=== PATIENT | female | born 1970 | race Caucasian/White ===

== ENCOUNTER 2016-03-12 15:31 | Emergency (ER) | payer OTHER ==
[~2016-03-12] VITALS: Ht 156.2 cm; Wt 65.9 kg
[~2016-03-12 15:31] MED LIST: ASCO-63 PO; CYCL5TAB PO; MECL1TAB42 PO; NAPR1TAB9 PO; TOPI25TA99 PO
[2016-03-12 15:33] VITALS: Ht 156.2 cm; Wt 65.9 kg
[2016-03-12] MEDS ORDERED: SODIUM CHLORIDE 0.9% 1000ML 1,000 ML IV STA (16:32)
[2016-03-12] MEDS ORDERED: ONDANSETRON INJ 2 MG/ML 2 ML VIAL IV STA (16:32)
--- NOTE | 2016-03-12 16:42 | EMERGENCY ROOM VISIT NOTE ---
History First contact with patient: 16:23 Chief Complaint: FLU LIKE SX Stated Complaint: STOMACH PAIN, DIARRHEA, VOMITING, BACK PAIN History of Present Illness The patient is a 46 year old female who presents to the Emergency Department by private vehicle for evaluation of her epigastric abdominal discomfort, nausea, vomiting, and diarrhea. She reports that she ate sauerkraut yesterday and shortly after developed heartburn-like symptoms. She took Tums which she reports typically helps with her symptoms. She was awoken at approximate 7 AM with persistent pain in the epigastrium. She's had nausea as well as vomiting. There is been no blood in her vomit. She's had diarrhea as well. No blood in her stool as well. 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 She does not take prophylactic medications. She's had no fevers. She has had some mild lightheadedness. She reports no history of solar symptoms otherwise. She denies a previous abdominal surgeries other than a splenectomy. She rates her current discomfort as 8/10. She denies any headaches, chest pain, palpitations, hemoptysis, hematemesis, hematochezia, melena, hematuria, or dysuria. She denies any recent sick contacts. She reports no recent long distance travel, consumption of raw/undercooked foods, drinking from poor water sources, or recent antibiotic use. Review of Systems A complete 10-point Review of Systems was discussed with the patient, with pertinent positives and negatives listed in the History of Present Illness. All remaining Review of Systems questions can be considered negative unless otherwise specified. Past Medical/Surgical History Medical Problems: (1) Asthma (2) Bipolar disorder (3) Bronchitis (4) Hyperlipidemia (5) Migraines (6) Pneumonia (7) Splenectomy Family History Cancer Diabetes mellitus FHx: gallbladder disease Heart disease Hypertension Lung disease Seizures Stroke Social History Smoking Status: Current Every Day Smoker Smokeless Tobacco Use: No Alcohol Use: none Drug Use: none Marital Status: Housing Status: lives with significant other Occupation Status: unemployed Current/Historical Medications Scheduled Bupropion Hcl (Wellbutrin Sr), 150 MG PO BID Cephalexin Monohydrate (Keflex), 500 MG PO TID Pantoprazole (Protonix), 40 MG PO DAILY Topiramate (Topamax), 50 MG PO BID Scheduled PRN Epinephrine (Epipen 2-Jalen), 0.3 MG IM UD PRN for ALLERGIC REACTION Hydrocodone/Acetaminophen 5MG/325MG (Reno 5MG/325MG), 1-2 TABLET PO Q4H PRN for Pain Meclizine HCl (Meclizine HCl), 25 MG PO TID PRN for Dizziness or Vertigo Allergies Coded Allergies: Clindamycin (Verified Allergy, Mild, 09/03/15) Penicillins (Verified Allergy, Mild, 09/03/15) BEE STING (Verified Allergy, Unknown, hives/swelling, 09/03/15) Aspirin (Verified Adverse Reaction, Unknown, 09/03/15) Physical Exam Vital Signs Date Time Temp Pulse Resp B/P Pulse Ox O2 Delivery O2 Flow Rate FiO2 03/12/16 23:22 66 18 120/64 96 03/12/16 21:37 36.7 83 18 142/58 96 Room Air 03/12/16 20:40 36.7 85 18 91/73 97 Room Air 03/12/16 20:05 75 16 123/70 96 Room Air 03/12/16 18:21 36.7 77 133/63 96 Room Air 03/12/16 16:54 73 03/12/16 16:51 Room Air 03/12/16 15:33 36.8 87 17 129/54 97 Room Air Pain Rating (0-10): 8 Physical Exam VITAL SIGNS - Vital signs and nursing notes were reviewed. GENERAL - 46-year-old female appearing her stated age who is in no acute distress. Communicates well with provider and answers questions appropriately. LUNGS - Chest wall symmetric without accessory muscle use, intercostals retractions, or central cyanosis. Normal vesicular breath sounds CTA B/L. No wheezes, rales, or rhonchi appreciated. CARDIAC - RRR with S1/S2. No murmur, rubs, or gallops appreciated. ABDOMEN - Abdominal contour obese and without pulsations or visible masses. BS normoactive all four quadrants. Mild tenderness to palpation appreciated in the epigastrium. No guarding. No Rebound Tenderness. Negative Rovsing's. Negative Mitchell's. No palpable masses, hepatosplenomegaly, or ascites noted. EXTREMITIES - No clubbing or peripheral cyanosis. No pretibial edema present. PSYCH - A&Ox3 and cooperates fully with examiner. Pt is very pleasant and interacts well with examiner. Medical Decision & Procedures ER Provider Diagnostic Interpretation: Radiological imaging and reports were reviewed by myself. Radiologist's Interpretation as follows: ABDOMEN AND PELVIS CT WITH IV CONTRAST CT DOSE: 322.03 mGy.cm HISTORY: epigastric pain - 19k white count - h/o splenectomy TECHNIQUE: Multiaxial CT images of the abdomen and pelvis were performed following the use of intravenous contrast. COMPARISON STUDY: Abdominal ultrasound 03/12/2016. FINDINGS: The lung bases are clear. No pneumoperitoneum. No pneumatosis. No suspicious lytic or blastic osseous lesions. The liver, gallbladder, adrenal glands, and pancreas are unremarkable. The left kidney enhances normally. There is a 4 mm hypodense lesion within the upper pole the right kidney. This is too small to characterize. No hydronephrosis. No retroperitoneal lymphadenopathy. There is high-grade stenosis at the origin of the right common iliac artery and mild stenosis at the origin of the left common iliac artery. The bilateral iliac arteries appear hypoplastic. The bladder is unremarkable. Multiple enhancing lesions within the uterus with the largest on the right measuring 2 cm. These likely represent fibroids. Normal left ovary. There are 2 cysts within the right ovary with the largest measuring 2.1 cm. No pelvic free fluid. Normal bladder. No bowel wall thickening or obstruction. Normal appendix. Small soft tissue nodules inferior to pylorus may represent small lymph nodes. These measure up to 8 mm in size. Prior splenectomy. There are few small areas of splenic tissue scattered throughout the left upper quadrant consistent with splenosis. IMPRESSION: 1. No bowel wall thickening or obstruction. 2. Normal appendix. 3. Prior splenectomy. There are few small areas of splenic tissue scattered throughout the left upper quadrant consistent with splenosis. 4. Small soft tissue nodules inferior to pylorus may represent small lymph nodes. These measure up to 8 mm in size. These are of uncertain clinical significance. 5. 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 The bilateral iliac arteries appear hypoplastic. ABDOMINAL ULTRASOUND, RIGHT UPPER QUADRANT HISTORY: Epigastric abdominal pain.. COMPARISON: None. FINDINGS: Pancreas: The pancreatic tail is obscured by overlying bowel gas. The remaining portions of the pancreas are within normal limits. Liver: Unremarkable. Gallbladder: No gallbladder wall thickening. No gallstones. CBD: 4 mm. Right kidney: No hydronephrosis. 5 mm hyperechoic focus within the upper pole of the right kidney. IMPRESSION: 1. Normal gallbladder. No gallstones. 2. A 5 mm hyperechoic lesion within the upper pole of the right kidney. This could represent a focal area of scarring versus a small angiomyolipoma. CHEST AND ABDOMEN 2 VIEWS HISTORY: Nausea. Vomiting. Diarrhea. COMPARISON: Chest 04/26/2014. FINDINGS: The lungs are clear. The cardiomediastinal silhouette is within normal limits. There is no pneumoperitoneum or pneumatosis. The bowel gas pattern is unremarkable. No evidence for bowel obstruction. No pathologic calcifications. There is contrast within the bowel. IMPRESSION: No acute cardiopulmonary process. No evidence for bowel obstruction. Laboratory Results 03/12/16 17:40 Red Blood Count 4.98, Mean Corpuscular Volume 86.3, Mean Corpuscular Hemoglobin 29.3, Mean Corpuscular Hemoglobin Concent 34.0, Mean Platelet Volume 11.6, Neutrophils (%) (Auto) 68.4, Lymphocytes (%) (Auto) 23.7, Monocytes (%) (Auto) 6.1, Eosinophils (%) (Auto) 1.0, Basophils (%) (Auto) 0.5, Neutrophils # (Auto) 13.07, Lymphocytes # (Auto) 4.54, Monocytes # (Auto) 1.17, Eosinophils # (Auto) 0.20, Basophils # (Auto) 0.10 03/12/16 17:40 Test 03/12/16 16:52 03/12/16 17:40 Urine Color YELLOW Urine Appearance CLEAR (CLEAR) Urine pH >= 9.0 (4.5-7.5) Urine Specific Woodson 1.018 (1.000-1.030) Urine Protein NEG (NEG) Urine Glucose (UA) NEG (NEG) Urine Ketones NEG (NEG) Urine Occult Blood NEG (NEG) Urine Nitrite NEG (NEG) Urine Bilirubin NEG (NEG) Urine Urobilinogen NEG (NEG) Urine Leukocyte Esterase NEG (NEG) Urine Test NEG (NEG) White Blood Count 19.13 K/uL (4.8-10.8) Red Blood Count 4.98 M/uL (4.2-5.4) Hemoglobin 14.6 g/dL (12.0-16.0) Hematocrit 43.0 % (37-47) Mean Corpuscular Volume 86.3 fL (80-100) Mean Corpuscular Hemoglobin 29.3 pg (25-34) Mean Corpuscular Hemoglobin Concent 34.0 g/dl (32-36) Platelet Count 530 K/uL (130-400) Mean Platelet Volume 11.6 fL (7.4-10.4) Neutrophils (%) (Auto) 68.4 % Lymphocytes (%) (Auto) 23.7 % Monocytes (%) (Auto) 6.1 % Eosinophils (%) (Auto) 1.0 % Basophils (%) (Auto) 0.5 % Neutrophils # (Auto) 13.07 K/uL (1.4-6.5) Lymphocytes # (Auto) 4.54 K/uL (1.2-3.4) Monocytes # (Auto) 1.17 K/uL (0.11-0.59) Eosinophils # (Auto) 0.20 K/uL (0-0.5) Basophils # (Auto) 0.10 K/uL (0-0.2) RDW Standard Deviation 43.4 fL (36.4-46.3) RDW Coefficient of Variation 13.9 % (11.5-14.5) Immature Granulocyte % (Auto) 0.3 % Immature Granulocyte # (Auto) 0.05 K/uL (0.00-0.02) Erythrocyte Sedimentation Rate 15 mm/hr (0-21) Prothrombin Time 10.1 SECONDS (9.0-12.0) Prothromb Time International Ratio 0.9 (0.9-1.1) Activated Partial Thromboplast Time 26.4 SECONDS (21.0-31.0) Partial Thromboplastin Ratio 1.0 Anion Gap 10.0 mmol/L (3-11) Est Creatinine Clear Calc Drug Dose 98.2 ml/min Estimated GFR () 124.7 Estimated GFR (Non- 107.6 BUN/Creatinine Ratio 14.3 (10-20) Calcium Level 9.1 mg/dl (8.5-10.1) Magnesium Level 2.0 mg/dl (1.8-2.4) Total Bilirubin 0.2 mg/dl (0.2-1) Aspartate Amino Transf (AST/SGOT) 16 U/L (15-37) Alanine Aminotransferase (ALT/SGPT) 15 U/L (12-78) Alkaline Phosphatase 96 U/L (45-117) Total Creatine Kinase 66 U/L (26-192) Creatine Kinase MB < 0.5 ng/ml (0.5-3.6) Creatine Kinase MB Ratio (0-3.0) Troponin I < 0.015 ng/ml (0-0.045) C-Reactive Protein 0.65 mg/dl (0-0.29) Total Protein 7.6 gm/dl (6.4-8.2) Albumin 4.0 gm/dl (3.4-5.0) Globulin 3.6 gm/dl (2.5-4.0) Albumin/Globulin Ratio 1.1 (0.9-2) Lipase 191 U/L (73-393) Thyroid Stimulating Hormone (TSH) 0.871 uIu/ml (0.300-4.500) Medications Administered Medications (Trade) Dose Ordered Sig/Karlo Route Start Time Stop Time Status Last Admin Dose Admin Sodium Chloride (Nss 1000ml) 1,000 ml @ 200 mls/hr Q5H STAT IV 03/12/16 16:32 03/12/16 21:31 DC 03/12/16 17:45 200 MLS/HR Miscellaneous Medication (Gi Cocktail) 30 ml NOW ONCE PO 03/12/16 16:45 03/12/16 16:46 DC 03/12/16 17:09 30 ML Ondansetron HCl 4 mg 4 mg NOW STAT IV 03/12/16 16:32 03/12/16 16:35 DC 03/12/16 17:45 4 MG Pantoprazole Sodium/Syringe (Protonix Inj/ Syringe) 10 ml @ 5 mls/min NOW ONCE IV 03/12/16 16:45 03/12/16 16:46 DC 03/12/16 18:19 5 MLS/MIN Lidocaine HCl (Viscous Lidocaine 2% Soln) 20 ml STK-MED ONCE .ROUTE 03/12/16 17:06 03/12/16 17:07 DC 03/12/16 17:09 20 ML Al Hydroxide/Mg Hydroxide (Maalox Susp) 30 ml STK-MED ONCE .ROUTE 03/12/16 17:06 03/12/16 17:07 DC 03/12/16 17:09 30 ML Morphine Sulfate (MoRPHine SULFATE INJ) 4 mg NOW STAT IV 03/12/16 20:17 03/12/16 20:19 DC 03/12/16 20:39 4 MG Cephalexin Monohydrate (Keflex Cap) 500 mg NOW ONCE PO 03/12/16 23:00 03/12/16 23:01 DC 03/12/16 23:16 500 MG Cephalexin Monohydrate (Keflex 500MG Home Pack) 1 homepack NOW ONCE PO 03/12/16 23:00 03/12/16 23:01 DC 03/12/16 23:17 1 HOMEPACK Acetaminophen/ Hydrocodone Bitart (Reno 5/325mg Home Pack) 1 homepack UD ONCE PO 03/12/16 23:00 03/12/16 23:01 DC 03/12/16 23:18 1 HOMEPACK Procedure Patient was placed on the monitor car operator and monitored throughout the entire extent of their stay. In addition, the patient's pulse oximetry was monitored throughout the entire stay. Any abnormalities or aberrancies were addressed appropriately. ECG Indication: abdominal pain Rate (beats per minute): 78 Rhythm: normal sinus Findings: no acute ischemic change Change: no significant change (from 12/20/2014.) ED Course Patient was seen and evaluated by myself. Labs were drawn, saline lock in place. The patient was hydrated with 1000 mL of normal saline and a rate of 200 mL per hour. She received a GI cocktail as well as 4 mg Zofran intravenously and Protonix intravenously. Obstruction series and ultrasound of the upper abdomen were obtained. Laboratory results demonstrate marked leukocytosis of greater than 19,000. The patient is not anemic. There are no significant electrolyte abnormalities. ESR and CRP are not significantly elevated. Cardiac enzymes and troponin are negative. Urinalysis does not suggest infection. X-ray and ultrasound results above. The patient has persistent pain. Because of this, a CT was performed. The patient was treated with 4 mg morphine intravenously for pain. Case was reviewed with my attending physician who agrees with diagnostic approach and treatment plan. Laboratory results and imaging studies were reviewed with the patient who acknowledges understanding. The patient feels somewhat better at this time. I did discuss antibiotic prophylaxis with the patient's significant elevation of her white blood cell count. I did offer Keflex. The patient reports that is typically what she is placed on when they are afraid of infection. She was educated on following with her primary care provider tomorrow for repeat abdominal exam. She was educated on worrisome symptoms for return sooner for further evaluation. She was educated on worrisome symptoms for return visit to the emergency department. Patient discharged home afebrile and in good condition. Medical Decision Given the patient's presentation and stated complaints, I did elect to perform the above-mentioned workup. The patient presents today with complaints of epigastric abdominal discomfort. She is also had nausea, vomiting, diarrhea. She's had no fevers. She has no fever or presentation. She was found to have a marked leukocytosis. On review the patient's record, she does tend to have an elevation of her white blood cell count. I did address this with the patient and she reports that this is a common theme. Regardless, I did feel that given the patient's discomfort and unremarkable evaluation with x-ray and ultrasound, the patient warrants CT of the abdomen and pelvis for possible infectious source. This is certainly important in the setting of an asplenic patient. CT was essentially unremarkable except for some small lymph node enlargement which is in the location of the patient's discomfort. Patient's early could be experiencing gastritis. I did feel that it was appropriate for the patient to be prophylaxed with antibiotics. After discussed with my attending physician, he did feel that this was appropriate as well. The patient was provided Keflex. This is what she typically receives as well. Otherwise, there are no known sources at this point for infectious cause. She remained afebrile. She felt much better after pain medication. She was provided Protonix, Reno, and Keflex for home. It was agreed upon that the patient will follow-up tomorrow with her primary care provider for repeat abdominal exam. She will return to the emergency department sooner if her symptoms were to change or worsen overnight. The patient was educated on worrisome symptoms for return visit to the emergency department. Patient discharged home afebrile and in good condition. In the evaluation and treatment of this patient, the following differential diagnoses were considered: Appendicitis, Diverticulitis, Diverticulosis, Colitis , Ischemic Colitis, Inflammatory Bowel Disease, Irritable Bowel Disease, Ovarian Torsion, Kidney Stone, Pyelonephritis, Hydronephrosis, Cholecystitis, Ascending Cholangitis, Choledocholithiasis, GERD. Impression Primary Impression: Epigastric abdominal pain Additional Impression: Nausea vomiting and diarrhea Departure Information Dispostion Home / Self-Care Condition GOOD Prescriptions Cephalexin Monohydrate (Keflex) 500 Mg Cap 500 MG PO TID for 7 Days, #21 CAP Prov: Ayo Méndez PA-C 03/12/16 Hydrocodone/Acetaminophen 5MG/325MG (Reno 5MG/325MG) Tab 1-2 TABLET PO Q4H Y for Pain, #14 TAB For Initial Treatment Prov: Ayo Méndez PA-C 03/12/16 Pantoprazole (Protonix) 40 Mg Tab 40 MG PO DAILY for 14 Days, #14 TAB Prov: Ayo Méndez PA-C 03/12/16 Referrals Juan Branham III, M.D. (PCP) Patient Instructions A Signature Page, My [facility] Additional Instructions You have been treated in the Emergency Department your Epigastric Abdominal Pain , Nausea, Vomiting, Diarrhea. You have been prescribed Reno to be used for pain control. This is a narcotic medication. You cannot drive or consume alcohol while on this medicine. This medicine should only be used for pain that cannot be controlled with over-the- counter pain medicines. Please use the Protonix as prescribed. You were prescribed Keflex to be taken as prescribed. This is an antibiotic. All antibiotics have the potential to cause diarrhea. Stop this medication and contact a medical provider if you were to develop any significant adverse side effects including: wheezing, shortness of breath, passing out, vomiting, or a diffuse rash. Always take antibiotics as directed and COMPLETE the ENTIRE course regardless of the improvement of your symptoms. For pain control, you can use the following [id number] medicines (if >12 yo): - Regular strength (325mg/tab) Tylenol (acetaminophen) 2 tabs every 4-6 hours as needed. Do not exceed 12 tablets in a 24 hour period. Avoid taking more than 4 grams (4000 mg) of Tylenol per day. This includes any other sources of acetaminophen you may take on a regular basis. - Regular strength (200 mg/tab) Advil (ibuprofen) 1-2 tabs every 4-6 hours as needed. Do not exceed a dose of 3200 mg per day. Drink plenty of water and stay well hydrated. As with any trip to the Emergency Department, you should follow-up with your Primary Care Provider from today's visit. Return to the emergency department if your symptoms persist despite treatment plan outlined above or if the following symptoms occur: increased fevers, chills , worsening nausea/vomiting, blood in your stool or urine.
[2016-03-12] MEDS ORDERED: PANTOprazole INJ 40 MG in SYRINGE 0 ML IV ONE (16:45)
[2016-03-12] MEDS ORDERED: GI COCKTAIL PO ONE (16:45)
[2016-03-12] MEDS ORDERED: ANT25 PO (16:55)
[2016-03-12] MEDS ORDERED: LIDOCAINE HCL 2% VISC SOLN 20 ML UDC ONE (17:06)
[2016-03-12] MEDS ORDERED: ALUMINUM/MAGNESIUM SUSP 30 ML UDC ONE (17:06)
[2016-03-12 17:09] LABS: URINE APPEARANCE CLEAR (CLEAR); URINE BILIRUBIN NEG (NEG); URINE COLOR YELLOW; URINE NITRITE NEG (NEG); URINE PH >= 9.0 (4.5-7.5); URINE SPECIFIC GRAVITY 1.018 (1.000-1.030); UROBILINOGEN NEG (NEG); ZZUR CULT IF INDIC CLEAN CATCH NO
[2016-03-12 17:12] LABS: MANUAL MICROSCOPIC REQUIRED? NO; REVIEW REQ? NO
[2016-03-12 18:09] LABS: BASO % 0.5 %; COMPLETE YES; IG% 0.3 %; LYMPH % 23.7 %; LYMPH ABS # 4.54 K/uL (1.2-3.4); MEAN CELL VOLUME 86.3 fL (80-100); MEAN CORPUSCULAR HEMOGLOBIN 29.3 pg (25-34); MEAN PLATELET VOLUME 11.6 fL (7.4-10.4); MONO % 6.1 %; NEUT % 68.4 %; PLATELET COUNT 530 K/uL (130-400); RED BLOOD COUNT 4.98 M/uL (4.2-5.4); WHITE BLOOD COUNT 19.13 K/uL (4.8-10.8)
[2016-03-12 18:17] LABS: INR 0.9 (0.9-1.1); PROTHROMBIN TIME (PATIENT) 10.1 SECONDS (9.0-12.0)
[2016-03-12] MEDS ORDERED: OPTIRAY 320 IV PRN (18:30)
--- NOTE | 2016-03-12 18:30 | DIAGNOSTIC IMAGING REPORT ---
CHEST AND ABDOMEN 2 VIEWS HISTORY: Nausea. Vomiting. Diarrhea. COMPARISON: Chest 04/26/2014. FINDINGS: The lungs are clear. The cardiomediastinal silhouette is within normal limits. There is no pneumoperitoneum or pneumatosis. The bowel gas pattern is unremarkable. No evidence for bowel obstruction. No pathologic calcifications. There is contrast within the bowel. IMPRESSION: No acute cardiopulmonary process. No evidence for bowel obstruction. Electronically signed by: Bridger Carballo M.D. 03/12/2016 6:28 PM
[2016-03-12 18:31] LABS: ALT/SGPT 15 U/L (12-78); BLOOD UREA NITROGEN 9 mg/dl (7-18); BUN/CREATININE RATIO 14.3 (10-20); C-REACTIVE PROTEIN 0.65 mg/dl (0-0.29); CALCIUM 9.1 mg/dl (8.5-10.1); CARBON DIOXIDE 23 mmol/L (21-32); CHLORIDE 104 mmol/L (98-107); CREATININE 0.63 mg/dl (0.60-1.20); GLUCOSE 94 mg/dl (70-99); POTASSIUM 4.1 mmol/L (3.5-5.1); SODIUM 137 mmol/L (136-145)
[2016-03-12 18:40] LABS: ALB/GLOB RATIO 1.1 (0.9-2); ALKALINE PHOSPHATASE 96 U/L (45-117); AST/SGOT 16 U/L (15-37); THYROID STIMULATING HORMONE 0.871 uIu/ml (0.300-4.500)
--- NOTE | 2016-03-12 19:55 | DIAGNOSTIC IMAGING REPORT ---
ABDOMINAL ULTRASOUND, RIGHT UPPER QUADRANT HISTORY: Epigastric abdominal pain.. COMPARISON: None. FINDINGS: Pancreas: The pancreatic tail is obscured by overlying bowel gas. The remaining portions of the pancreas are within normal limits. Liver: Unremarkable. Gallbladder: No gallbladder wall thickening. No gallstones. CBD: 4 mm. Right kidney: No hydronephrosis. 5 mm hyperechoic focus within the upper pole of the right kidney. IMPRESSION: 1. Normal gallbladder. No gallstones. 2. A 5 mm hyperechoic lesion within the upper pole of the right kidney. This could represent a focal area of scarring versus a small angiomyolipoma. Electronically signed by: Bridger Carballo M.D. 03/12/2016 7:53 PM
[2016-03-12] MEDS ORDERED: MoRPHine SULFATE 4 MG/ML 1 ML CARP\\VIAL IV STA (20:17)
--- NOTE | 2016-03-12 21:33 | DIAGNOSTIC IMAGING REPORT ---
ABDOMEN AND PELVIS CT WITH IV CONTRAST CT DOSE: 322.03 mGy.cm HISTORY: epigastric pain - 19k white count - h/o splenectomy TECHNIQUE: Multiaxial CT images of the abdomen and pelvis were performed following the use of intravenous contrast. COMPARISON STUDY: Abdominal ultrasound 03/12/2016. FINDINGS: The lung bases are clear. No pneumoperitoneum. No pneumatosis. No suspicious lytic or blastic osseous lesions. The liver, gallbladder, adrenal glands, and pancreas are unremarkable. The left kidney enhances normally. There is a 4 mm hypodense lesion within the upper pole the right kidney. This is too small to characterize. No hydronephrosis. No retroperitoneal lymphadenopathy. There is high-grade stenosis at the origin of the right common iliac artery and mild stenosis at the origin of the left common iliac artery. The bilateral iliac arteries appear hypoplastic. The bladder is unremarkable. Multiple enhancing lesions within the uterus with the largest on the right measuring 2 cm. These likely represent fibroids. Normal left ovary. There are 2 cysts within the right ovary with the largest measuring 2.1 cm. No pelvic free fluid. Normal bladder. No bowel wall thickening or obstruction. Normal appendix. Small soft tissue nodules inferior to pylorus may represent small lymph nodes. These measure up to 8 mm in size. Prior splenectomy. There are few small areas of splenic tissue scattered throughout the left upper quadrant consistent with splenosis. IMPRESSION: 1. No bowel wall thickening or obstruction. 2. Normal appendix. 3. Prior splenectomy. There are few small areas of splenic tissue scattered throughout the left upper quadrant consistent with splenosis. 4. Small soft tissue nodules inferior to pylorus may represent small lymph nodes. These measure up to 8 mm in size. These are of uncertain clinical significance. 5. 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 The bilateral iliac arteries appear hypoplastic. Electronically signed by: Bridger Carballo M.D. 03/12/2016 9:31 PM
[2016-03-12 21:37] VITALS: TEMP 36.7
[2016-03-12] MEDS ORDERED: CEPH500C PO (22:57)
[2016-03-12] MEDS ORDERED: HYDR-5688 PO (22:57)
[2016-03-12] MEDS ORDERED: PANT40TA PO (22:57)
[2016-03-12] MEDS ORDERED: NORCO 5/325MG HOME PACK PO ONE (23:00)
[2016-03-12] MEDS ORDERED: CEPHALEXIN 500MG HOME PACK 1 EA BTL PO ONE (23:00)
[2016-03-12] MEDS ORDERED: CEPHALEXIN MONOHYDRATE 250 MG CAP PO ONE (23:00)
[2016-03-12 23:22] VITALS: BP 120/64; PULSE 66; O2SAT 96
--- NOTE | 2016-03-13 14:26 | Pharmacy Progress Note ---
ED Pharmacist Culture FollowUp Date of Service: Mar 13, 2016. Called microbiology lab regarding blood culture, spoke with Emilia. She confirmed that it is the anaerobic vial of one set of blood cultures that is growing Gram positive cocci. She confirmed that both aerobic cultures have no growth to date and that the 2nd anaerobic culture also has no growth to date. OF NOTE: growth in an anaerobic set does not necessarily mean this is an anaerobic organism. It could also be an aerobic contaminant. There was a different patient at [facility] recently who had a similar result (Blood cultures with 1 of 2 anaerobic sets with GPC's and 2 of 2 aerobic sets with no growth to date) which was later finalized to be coagulase negative Staph. However, as this patient does not have her spleen, called patient at 1415 regarding blood culture and requested that she return to the ER [facility] for further evaluation and possible hospital admission. Patient acknowledged understanding and noted intent to return. Case discussed with Dr. Modi.
[2016-03-13] MEDS ORDERED: FLUT0.15 NAE (17:46)
[2016-03-13] MEDS ORDERED: CYCL1POW PO (17:46)
[2016-03-13] MEDS ORDERED: MELO7.5T5 PO (17:46)
[2016-03-16] MEDS ORDERED: CRFUDL PO (16:58)
[2016-03-16] MEDS ORDERED: CEPH500C PO (16:58)
[2016-03-16] MEDS ORDERED: MLXC PO (16:58)
[2016-03-16] MEDS ORDERED: PRT40 PO (16:58)
[2016-09-06] MEDS ORDERED: EPP3/2 IM (04:39)
[2016-09-06] MEDS ORDERED: TPM/50 PO (16:55)
[2016-09-06] MEDS ORDERED: BACL1TAB PO (17:46)
[2016-09-06] MEDS ORDERED: ALBU18002 INH (17:46)
[2016-09-06] MEDS ORDERED: BUPR150T7 PO (20:35)
[2016-09-06] MEDS ORDERED: DIPH1TAB87 PO (22:19)
[2016-10-17] MEDS ORDERED: OXYC-57 PO (10:37)
== END 2016-03-12 23:24 | disposition home or self-care (01) ==
LOC: C.EDB 15:32 → C.EDC 23:24
DX: R10.13 Epigastric pain (principal); R11.2 Nausea with vomiting, unspecified; R19.7 Diarrhea, unspecified; J45.909 Unspecified asthma, uncomplicated; F31.9 Bipolar disorder, unspecified; F17.210 Nicotine dependence, cigarettes, uncomplicated; E78.5 Hyperlipidemia, unspecified; Z88.3 Allergy status to other anti-infective agents; Z83.79 Family history of other diseases of the digestive system; Z82.49 Family history of ischemic heart disease and other diseases of the circulatory system; Z83.6 Family history of other diseases of the respiratory system; Z82.3 Family history of stroke; Z82.0 Family history of epilepsy and other diseases of the nervous system

== ENCOUNTER 2016-03-13 15:39 | Inpatient (IN) | payer OTHER ==
[~2016-03-13] VITALS: Ht 154.9 cm; Wt 65.6 kg
[~2016-03-13 15:39] MED LIST changes: +ANT25 PO; -ASCO-63 PO; +CEPH500C PO; -CYCL5TAB PO; +HYDR-5688 PO; -MECL1TAB42 PO; -NAPR1TAB9 PO; +PANT40TA PO; -TOPI25TA99 PO
[2016-03-13] MEDS ORDERED: CEFTRIAXONE SOD INJ 2000 MG in DEXTROSE 5% 50ML IV ONE (16:00)
[2016-03-13] MEDS ORDERED: VANCOMYCIN INJ 1,350 MG in SODIUM CHLORIDE 0.9% 250ML 250 ML IV ONE (16:00)
[2016-03-13] MEDS ORDERED: METRONIDAZOLE 500MG / NSS IV ONE (16:00)
--- NOTE | 2016-03-13 16:21 | Pharmacy Progress Note ---
ED Pharmacist Culture FollowUp Date of Service: Mar 13, 2016. Background - Patient seen in ER 03/12/16 for epigastric abdominal discomfort, nausea, vomiting, and diarrhea. Given prescriptions for cephalexin, [facility], and pantoprazole and sent home. - Called patient 03/13/16 and requested she return to ER 2nd 1 of 2 blood cultures from ER visit 03/12/16 with Gram positive cocci. - Patient is asplenic Assessment of culture result - Called microbiology lab regarding 1 of 2 blood cultures with Gram positive cocci, spoke with Emilia. - She confirmed that it is the anaerobic vial of one set of blood cultures that is growing Gram positive cocci. - She confirmed that both aerobic cultures have no growth to date and that the 2nd anaerobic culture also has no growth to date. - OF NOTE: growth in an anaerobic set does not necessarily mean this is an anaerobic organism. It could also be aerobic. There was a different patient at [facility] recently who had a similar result (blood cultures with 1 of 2 anaerobic sets with GPC's and 2 of 2 aerobic sets with no growth to date) which was later finalized to be coagulase negative Staph. - Isolation does not indicate infection - this could be a contaminant but would prefer to be cautious in an asplenic patient Assessment of pertinent bacteria to cover - Possible clinically significant Gram positive anaerobes include Peptostreptococcus and Streptococcus. - While Gram negative anaerobes such as Bacteroides fragilis have not yet been identified in culture, it is a common co-infection and therefore should also be covered. - Patient with history of splenectomy and therefore at risk for infection with encapsulated organisms such as Streptococcus pneumonia, Haemophilus influenza, and Neisseria meningitidis Assessment of antibiotic selection - Recommended Gram positive anaerobic coverage is typically penicillin, metronidazole, or clindamycin. - Patient has listed allergy to clindamycin (mild, no reaction listed) and penicillin (no reaction listed). - Patient has received the following medications per EMR history: amoxicillin (x1 dose in 2007), cephalexin (2014 and 2016) - Would recommend metronidazole (however, will not cover aerobic encapsulated bacteria and microaerophilic Streptococci) - Possible coverage for aerobic encapsulated bacteria and microaerophilic Streptococci would be ceftriaxone - Patient with PCN allergy, but has tolerated cephalexin in the past - May need additional GI Gram positive coverage (including Enterococcus) 2nd initial presentation. Neither ceftriaxone nor metronidazole will cover. Would recommend addition of vancomycin. Recommendations - Would suggest ceftriaxone, metronidazole, and vancomycin - Would also suggest ID consult for this complicated patient
[2016-03-13 16:48] LABS: BASO % 0.7 %; COMPLETE YES; EOS % 1.2 %; HEMATOCRIT 41.6 % (37-47); IG% 0.2 %; LYMPH % 21.5 %; LYMPH ABS # 3.13 K/uL (1.2-3.4); MEAN CELL VOLUME 85.2 fL (80-100); MEAN CORPUSCULAR HEMOGLOBIN 29.1 pg (25-34); MEAN CORPUSCULAR HGB CONC 34.1 g/dl (32-36); MEAN PLATELET VOLUME 11.4 fL (7.4-10.4); MONO % 5.7 %; NEUT % 70.7 %; PLATELET COUNT 482 K/uL (130-400); RED BLOOD COUNT 4.88 M/uL (4.2-5.4); WHITE BLOOD COUNT 14.58 K/uL (4.8-10.8)
[2016-03-13 17:10] LABS: BUN/CREATININE RATIO 12.9 (10-20); CALCIUM 9.4 mg/dl (8.5-10.1); CREATININE 0.71 mg/dl (0.60-1.20); MAGNESIUM 2.2 mg/dl (1.8-2.4); POTASSIUM 4.4 mmol/L (3.5-5.1)
[2016-03-13 17:14] LABS: ALB/GLOB RATIO 1.1 (0.9-2); C-REACTIVE PROTEIN 0.89 mg/dl (0-0.29); PHOSPHORUS 2.5 mg/dl (2.5-4.9)
[2016-03-13] MEDS ORDERED: FLUT0.15 NAE (17:46)
[2016-03-13] MEDS ORDERED: CYCL1POW PO (17:46)
[2016-03-13] MEDS ORDERED: MELO7.5T5 PO (17:46)
[2016-03-13] MEDS ORDERED: CYCLOBENZAPRINE HCL 5 MG TAB PO PRN (18:00)
[2016-03-13] MEDS ORDERED: MECLIZINE HCL 25 MG TAB PO PRN (18:00)
[2016-03-13] MEDS ORDERED: BACLOFEN 10 MG TAB PO PRN (18:00)
[2016-03-13] MEDS ORDERED: ALUMINUM/MAGNESIUM SUSP 30 ML UDC PO PRN (18:30)
[2016-03-13] MEDS ORDERED: ACETAMINOPHEN 325 MG TAB PO PRN (18:30)
[2016-03-13] MEDS ORDERED: ONDANSETRON INJ 2 MG/ML 2 ML VIAL IV PRN (18:30)
--- NOTE | 2016-03-13 18:44 | History and Physical ---
History & Physical Date & Time of Service: Mar 13, 2016 at 17:50 Chief Complaint: Bacteria Primary Care Physician: Juan Branham III, M.D. History of Present Illness Source: patient, hospital records This is a 46 year old female with PMH of splenectomy secondary to trauma, asthma , AV insufficiency, migraine, and other problems listed below who presents to the ED for positive blood culture. Patient seen in ER yesterday for abdominal pain, nausea, vomiting, diarrhea. Blood culture grew gram positive cocci so she was called to return to ER. Pt states abdominal pain started 2 nights ago in epigastrium with radiation to her back- thought it was reflux, so tried taking Tums without relief. Yesterday had persistent pain and developed 3 episodes vomiting and multiple episodes diarrhea. She came to the ER yesterday evening and was treated with IVF, Zofran, and Protonix. She had a CT abdomen/pelvis without any acute findings. Gallbladder ultrasound showed no acute pathology. Her WBC was elevated but noted to be chronic. She was sent home with Keflex, [place], and Protonix. Abdominal pain was improved when she went home (after morphine in ER) but worsened again when she tried to eat. Currently pain is rated 7/10. She still feels mildly "queasy" but no further vomiting. Not eating today. No further diarrhea today. No hematemesis, coffee ground emesis, hematochezia, melena. Has chronic cough attributed to asthma- no change from baseline. Chronic low back pain- no acute change. No fevers, chills, dizziness, weakness, headache, URI symptoms, body aches, chest pain, SOB, dysuria, frequency, significant wounds. No recent travel, hospitalizations, or sick contacts. Past Medical/Surgical History Medical Problems: (1) Aortic valve insufficiency Status: Chronic (2) Asthma Status: Chronic (3) Bipolar disorder Status: Chronic (4) Bronchitis Status: Chronic (5) Hyperlipidemia Status: Chronic (6) Migraines Status: Chronic (7) Pneumonia Status: Chronic Surgical Problems: (1) H/O splenectomy Status: Resolved (2) History of dental surgery Status: Chronic Family History Cancer Diabetes mellitus FHx: gallbladder disease Heart disease MOTHER Hypertension MOTHER Lung disease Seizures Stroke MOTHER Social History Smoking Status: Current Every Day Smoker (1.5 ppd) Alcohol Use: none Drug Use: none Marital Status: Housing status: lives with family Occupational Status: unemployed Immunizations History of Influenza Vaccine: No Influenza Vaccine Date: Jan 22, 2007 History of Tetanus Vaccine?: Yes Tetanus Immunization Date: Jan 23, 2004 History of Pneumococcal: Yes Pneumococcal Date: Jan 23, 2004 History of Hepatitis B Vaccine: Unknown Multi-Drug Resistant Organisms History of MDRO: No Allergies Coded Allergies: Clindamycin (Verified Allergy, Mild, 03/13/16) Penicillins (Verified Allergy, Mild, 03/13/16) BEE STING (Verified Allergy, Unknown, hives/swelling, 03/13/16) Aspirin (Verified Adverse Reaction, Unknown, 03/13/16) Home Medications Scheduled Albuterol Sulfate (Proair Respiclick), 2 PUFFS INH QID Bupropion Hcl (Wellbutrin Sr), 150 MG PO BID Cephalexin Monohydrate (Keflex), 500 MG PO TID Fluticasone Propionate (Nasal) (Flonase Allergy Relief), 2 SPRAYS CURTIS DAILY Meloxicam (Mobic), 7.5 MG PO BID Pantoprazole (Protonix), 40 MG PO DAILY Topiramate (Topamax), 50 MG PO BID Scheduled PRN Baclofen (Lioresal), 1 TAB PO TID PRN for Muscle Spasms Cyclobenzaprine (Bulk) (Cyclobenzaprine), 5 MG PO TID PRN for Muscle Spasms Epinephrine (Epipen 2-Jalen), 0.3 MG IM UD PRN for ALLERGIC REACTION Hydrocodone/Acetaminophen 5MG/325MG ([place] 5MG/325MG), 1-2 TABLET PO Q4H PRN for Pain Meclizine HCl (Meclizine HCl), 25 MG PO TID PRN for Dizziness or Vertigo Review of Systems Ten point review of systems performed with pertinent positives and negatives noted in HPI. Physical Exam Vital Signs Date Time Temp Pulse Resp B/P Pulse Ox O2 Delivery O2 Flow Rate FiO2 03/13/16 15:42 36.9 91 16 108/74 98 Room Air General Appearance: WD/WN, no apparent distress, + pertinent finding (alert pleasant cooperative 46 year old female, non toxic appearing) Head: normocephalic, atraumatic Eyes: normal inspection, PERRL, EOMI ENT: hearing grossly normal, pharynx normal Neck: supple, trachea midline Respiratory/Chest: lungs clear, normal breath sounds, no respiratory distress Cardiovascular: regular rate, rhythm, no murmur, normal peripheral pulses Abdomen/GI: normal bowel sounds, soft, + pertinent finding (epigastric tenderness. no rebound. no guarding. ) Extremities/Musculoskelatal: normal inspection, no calf tenderness, normal capillary refill, no pedal edema Neurologic/Psych: alert, normal mood/affect, oriented x 3, + pertinent finding (grossly nonfocal) Skin: normal color, warm/dry, + pertinent finding (tiny scabbed abrasions on nose and left hand- no erythema) Diagnostics Laboratory Results Results Past 24 Hours Test 03/13/16 16:30 Range/Units White Blood Count 14.58 4.8-10.8 K/uL Red Blood Count 4.88 4.2-5.4 M/uL Hemoglobin 14.2 12.0-16.0 g/dL Hematocrit 41.6 37-47 % Mean Corpuscular Volume 85.2 80-100 fL Mean Corpuscular Hemoglobin 29.1 25-34 pg Mean Corpuscular Hemoglobin Concent 34.1 32-36 g/dl Platelet Count 482 130-400 K/uL Mean Platelet Volume 11.4 7.4-10.4 fL Neutrophils (%) (Auto) 70.7 % Lymphocytes (%) (Auto) 21.5 % Monocytes (%) (Auto) 5.7 % Eosinophils (%) (Auto) 1.2 % Basophils (%) (Auto) 0.7 % Neutrophils # (Auto) 10.32 1.4-6.5 K/uL Lymphocytes # (Auto) 3.13 1.2-3.4 K/uL Monocytes # (Auto) 0.83 0.11-0.59 K/uL Eosinophils # (Auto) 0.17 0-0.5 K/uL Basophils # (Auto) 0.10 0-0.2 K/uL RDW Standard Deviation 42.6 36.4-46.3 fL RDW Coefficient of Variation 13.8 11.5-14.5 % Immature Granulocyte % (Auto) 0.2 % Immature Granulocyte # (Auto) 0.03 0.00-0.02 K/uL Erythrocyte Sedimentation Rate 22 0-21 mm/hr Sodium Level 137 136-145 mmol/L Potassium Level 4.4 3.5-5.1 mmol/L Chloride Level 107 98-107 mmol/L Carbon Dioxide Level 20 21-32 mmol/L Anion Gap 10.0 3-11 mmol/L Blood Urea Nitrogen 9 7-18 mg/dl Creatinine 0.71 0.60-1.20 mg/dl Est Creatinine Clear Calc Drug Dose 86.9 ml/min Estimated GFR () 118.4 Estimated GFR (Non- 102.1 BUN/Creatinine Ratio 12.9 10-20 Random Glucose 98 70-99 mg/dl Calcium Level 9.4 8.5-10.1 mg/dl Phosphorus Level 2.5 2.5-4.9 mg/dl Magnesium Level 2.2 1.8-2.4 mg/dl Total Bilirubin 0.2 0.2-1 mg/dl Aspartate Amino Transf (AST/SGOT) 12 15-37 U/L Alanine Aminotransferase (ALT/SGPT) 18 12-78 U/L Alkaline Phosphatase 90 45-117 U/L C-Reactive Protein 0.89 0-0.29 mg/dl Total Protein 7.3 6.4-8.2 gm/dl Albumin 3.8 3.4-5.0 gm/dl Globulin 3.5 2.5-4.0 gm/dl Albumin/Globulin Ratio 1.1 0.9-2 Lipase 169 73-393 U/L Procalcitonin < 0.05 0-0.5 ng/mL Microbiology Results 03/13/16 Blood Culture, Received Pending 03/13/16 Blood Culture, Received Pending Impression Assessment and Plan BACTEREMIA in setting of ASPLENIA Has chronic leukocytosis; afebrile; no tachycardia; no hypotension; lactic acid WNL Blood culture 03/12/16 grew gram positive cocci Possible GI source; check urine culture Started on vancomycin, ceftriaxone, and metronidazole as per pharmacy recommendation- will continue Repeat blood cultures pending Consult infectious disease EPIGASTRIC ABDOMINAL PAIN With vomiting/ diarrhea- resolved; still not able to eat due to abdominal pain Etiology unclear- ddx includes GERD, gastroenteritis, r/o aortic dissection with stat CT angio CT A/P on 03/12/16- " 1. No bowel wall thickening or obstruction. 2. Normal appendix. 3. Prior splenectomy. There are few small areas of splenic tissue scattered throughout the left upper quadrant consistent with splenosis. 4. Small soft tissue nodules inferior to pylorus may represent small lymph nodes. These measure up to 8 mm in size. These are of uncertain clinical significance. 5. 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 The bilateral iliac arteries appear hypoplastic." RUQ US on - "1. Normal gallbladder. No gallstones. 2. A 5 mm hyperechoic lesion within the upper pole of the right kidney. This could represent a focal area of scarring versus a small angiomyolipoma." LFT's and lipase WNL IV Protonix BID Consult GI ASTHMA Not in acute exacerbation Continue home inhaler DVT PROPHYLAXIS SCDs DISPOSITION Admit to med/surg Follows with Dr. Branham for primary care Patient seen in collaboration with Dr. Sherman. Please see his addendum.
[2016-03-13] MEDS ORDERED: OPTIRAY 320 IV PRN (18:45)
[2016-03-13] MEDS ORDERED: VANCOMYCIN CONSULT ACTIVE PRN (18:46)
[2016-03-13] MEDS ORDERED: METRONIDAZOLE CONSULT ACTIVE PRN (18:48)
[2016-03-13] MEDS ORDERED: ROCEPHIN CONSULT PHARMACY PRN (18:48)
[2016-03-13 19:48] VITALS: Ht 154.9 cm; Wt 65.6 kg
--- NOTE | 2016-03-13 20:42 | Pharmacy Progress Note ---
Pharmacy Antibiotic Consult Date of Service: Mar 13, 2016. Pharmacy Dosing Scope Pharmacy is consulted to initiate VANC/ROCEPHIN/FLAGYL IV dosing therapy, order appropriate labs and adjust drug dose/frequency. Subjective The patient is a 46 year old female admitted on 03/13/16 based on blood cultures drawn during an ED visit 03/12/16. * I will refer you to Pharm. AlexandraD. note from the ED earlier today to guide antibiotic therapy. Objective Height (Feet): 5 Height (Inches): 1.00 Weight (Kilograms): 65.600 Lab Results (24hrs): Laboratory Tests Test 03/13/16 16:30 BUN/Creatinine Ratio 12.9 Blood Urea Nitrogen 9 mg/dl Creatinine 0.71 mg/dl White Blood Count 14.58 K/uL Red Blood Count 4.88 M/uL Hemoglobin 14.2 g/dL Hematocrit 41.6 % Mean Corpuscular Volume 85.2 fL Mean Corpuscular Hemoglobin 29.1 pg Mean Corpuscular Hemoglobin Concent 34.1 g/dl Platelet Count 482 K/uL Mean Platelet Volume 11.4 fL Neutrophils (%) (Auto) 70.7 % Lymphocytes (%) (Auto) 21.5 % Monocytes (%) (Auto) 5.7 % Eosinophils (%) (Auto) 1.2 % Basophils (%) (Auto) 0.7 % Neutrophils # (Auto) 10.32 K/uL Lymphocytes # (Auto) 3.13 K/uL Monocytes # (Auto) 0.83 K/uL Eosinophils # (Auto) 0.17 K/uL Basophils # (Auto) 0.10 K/uL Micro Results: Item Value Date Time Blood Culture Received 03/13/16 1618 Blood Pending Blood Culture Received 03/13/16 1615 Blood Pending Recent Pertinent Medications * Day # 1: Vanc 1350mg (20mg/kg) IV x 1 in ED * Day # 1: Rocephin 2 grams IV x 1 in ED * Day # 1: Flagyl 500mg IV x 1 in ED Assessment & Plan 1. VANC-IV: * Estiamted p'kinetics: Vd~0.7L/kg, Ke~0.0766hr-1, T1/2~9 hours * Loading dose: VANC 1350mg (~20mg/kg) IV X 1 dose then: * Maintenance Dose: VANC 1 gram (~15mg/kg) IV every 10 hours. * Goal trough level estimate: between 15 - 20 mcg/mL. * VANC trough level has been ordered @ [facility] prior to 03/15/16 1000 dose. 2. FLAGYL: ordered 500mg IV every 8 hours 3. Rocephin 2 grams IV every 24 hours. Pharmacy will continue to follow and will adjust dose/frequency as necessary. Thank you
[2016-03-13 20:57] VITALS: BP 104/66; PULSE 70; TEMP 36.9; O2SAT 96
[2016-03-13] MEDS: PANTOprazole INJ 40 MG in SYRINGE 0 ML IV SCH (21:37)
[2016-03-13] MEDS: CEFTRIAXONE SOD INJ 2,000 MG in DEXTROSE 5% 50ML 50 ML IV SCH (21:37)
[2016-03-13] MEDS: D5W AND NSS 1,000 ML IV SCH ×2 (21:37→23:19)
--- NOTE | 2016-03-13 21:59 | Progress Note ---
Progress Note ATTENDING ADDENDUM care coordinated with KWADWO Prabhakar please refer to her notes for full details, I agree with her notes patient seen and examined, records reviewed by myself as well on exam, patient seen resting in bed states her epigastric pain comes and goes- sharp, worse with food no chest pain, dyspnea, dizziness, palpitations no other symptoms VS noted and reviewed oriented x 3 , not in distress, speaks in sentences with no effort nor accessory muscle use normal rate, regular rhythm, no murmurs clear breath sounds bilaterally non distended, soft, (+) mild epigastric tenderness no bipedal edema, erythema, warmth no neuro deficits WBC 14 crea 0.71 ASSESSMENT/PLAN> GRAM POSITIVE COCCI BACTEREMIA empiric Vancomycin, Ceftriaxone, Metronidazole EPIGASTRIC PAIN, POSSIBLE GASTRITIS, PUD risk factors: daily Alleve intake, smoking Protonix, Sucralfate, Maalox NPO post midnight GI consult other diagnoses and plan of care as per KWADWO Prabhakar notes Viraj Sherman MD
[2016-03-13] MEDS ORDERED: SUCRALFATE 1 GM/10 ML UDC PO ONE (22:00)
[2016-03-13] MEDS: ALBUTEROL HFA 8 GM INHALER INH SCH (22:03)
[2016-03-13] MEDS: BuPROPion SR 150 MG TABCR PO SCH (22:03)
[2016-03-13] MEDS: TOPIRAMATE 25 MG TAB PO SCH (22:04)
[2016-03-13] MEDS: METRONIDAZOLE / NSS 500 MG in PREMIXED NSS 100 ML IV SCH (23:24)
[2016-03-13 23:40] VITALS: BP 109/72; PULSE 79; TEMP 36.7; O2SAT 98
[2016-03-14 00:01] LABS: URINE APPEARANCE CLEAR (CLEAR); URINE BILIRUBIN NEG (NEG); URINE COLOR YELLOW; URINE NITRITE NEG (NEG); URINE PH 7.5 (4.5-7.5); URINE SPECIFIC GRAVITY 1.007 (1.000-1.030); UROBILINOGEN NEG (NEG)
--- NOTE | 2016-03-14 00:03 | EMERGENCY ROOM VISIT NOTE ---
History First contact with patient: 15:46 Chief Complaint: REFERRED BY DOCTOR Stated Complaint: BACTEREMIA History of Present Illness The patient is a 46 year old female who presents to the Emergency Department by private vehicle after having positive blood cultures from yesterday's visit. The patient was seen in the emergency department yesterday for epigastric abdominal pain with associated nausea, vomiting, and diarrhea. 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 She had an otherwise unremarkable evaluation yesterday except for an elevated white blood cell count which is consistent with the patient's priors. She had no fevers overnight. She was placed on Keflex as well as Protonix and [place]. Her pain has been adequately controlled at home. She is had no further bowel movements, specifically no diarrhea. She rates her current discomfort as a 7/10. She denies any fevers, chills, chest pain, palpitations, shortness of breath, hematemesis, hematochezia , melena, hematuria, or dysuria. Review of Systems A complete 10-point Review of Systems was discussed with the patient, with pertinent positives and negatives listed in the History of Present Illness. All remaining Review of Systems questions can be considered negative unless otherwise specified. Past Medical/Surgical History Medical Problems: (1) Aortic valve insufficiency (2) Asthma (3) Bacteremia (4) Bipolar disorder (5) Bronchitis (6) Hyperlipidemia (7) Migraines (8) Pneumonia Surgical Problems: (1) H/O splenectomy (2) History of dental surgery Family History Cancer Diabetes mellitus FHx: gallbladder disease Heart disease MOTHER Hypertension MOTHER Lung disease Seizures Stroke MOTHER Social History Smoking Status: Current Every Day Smoker Alcohol Use: none Drug Use: none Marital Status: Housing Status: lives with significant other Occupation Status: unemployed Current/Historical Medications Scheduled Albuterol Sulfate (Proair Respiclick), 2 PUFFS INH QID Bupropion Hcl (Wellbutrin Sr), 150 MG PO BID Cephalexin Monohydrate (Keflex), 500 MG PO TID Fluticasone Propionate (Nasal) (Flonase Allergy Relief), 2 SPRAYS CURTIS DAILY Meloxicam (Mobic), 7.5 MG PO BID Pantoprazole (Protonix), 40 MG PO DAILY Topiramate (Topamax), 50 MG PO BID Scheduled PRN Baclofen (Lioresal), 1 TAB PO TID PRN for Muscle Spasms Cyclobenzaprine (Bulk) (Cyclobenzaprine), 5 MG PO TID PRN for Muscle Spasms Epinephrine (Epipen 2-Jalen), 0.3 MG IM UD PRN for ALLERGIC REACTION Hydrocodone/Acetaminophen 5MG/325MG ([place] 5MG/325MG), 1-2 TABLET PO Q4H PRN for Pain Meclizine HCl (Meclizine HCl), 25 MG PO TID PRN for Dizziness or Vertigo Allergies Coded Allergies: Clindamycin (Verified Allergy, Mild, 03/13/16) Penicillins (Verified Allergy, Mild, 03/13/16) BEE STING (Verified Allergy, Unknown, hives/swelling, 03/13/16) Aspirin (Verified Adverse Reaction, Unknown, 03/13/16) Physical Exam Vital Signs Date Time Temp Pulse Resp B/P Pulse Ox O2 Delivery O2 Flow Rate FiO2 03/13/16 18:19 71 18 106/86 95 Room Air 03/13/16 15:42 36.9 91 16 108/74 98 Room Air Pain Rating (0-10): 7 Physical Exam VITAL SIGNS - Vital signs and nursing notes were reviewed. GENERAL - 46-year-old female appearing her stated age who is in no acute distress. Communicates well with provider and answers questions appropriately. LUNGS - Chest wall symmetric without accessory muscle use, intercostals retractions, or central cyanosis. Normal vesicular breath sounds CTA B/L. No wheezes, rales, or rhonchi appreciated. CARDIAC - RRR with S1/S2. No murmur, rubs, or gallops appreciated. ABDOMEN - Abdominal contour obese and without pulsations or visible masses. BS normoactive all four quadrants. Mild tenderness to palpation appreciated in the epigastrium. No guarding. No Rebound Tenderness. Negative Rovsing's. Negative Mitchell's. No palpable masses, hepatosplenomegaly, or ascites noted. Medical Decision & Procedures Laboratory Results 03/13/16 16:30 Red Blood Count 4.88, Mean Corpuscular Volume 85.2, Mean Corpuscular Hemoglobin 29.1, Mean Corpuscular Hemoglobin Concent 34.1, Mean Platelet Volume 11.4, Neutrophils (%) (Auto) 70.7, Lymphocytes (%) (Auto) 21.5, Monocytes (%) (Auto) 5.7, Eosinophils (%) (Auto) 1.2, Basophils (%) (Auto) 0.7, Neutrophils # (Auto) 10.32, Lymphocytes # (Auto) 3.13, Monocytes # (Auto) 0.83, Eosinophils # (Auto) 0.17, Basophils # (Auto) 0.10 03/13/16 16:30 Test 03/13/16 16:30 03/13/16 16:34 White Blood Count 14.58 K/uL (4.8-10.8) Red Blood Count 4.88 M/uL (4.2-5.4) Hemoglobin 14.2 g/dL (12.0-16.0) Hematocrit 41.6 % (37-47) Mean Corpuscular Volume 85.2 fL (80-100) Mean Corpuscular Hemoglobin 29.1 pg (25-34) Mean Corpuscular Hemoglobin Concent 34.1 g/dl (32-36) Platelet Count 482 K/uL (130-400) Mean Platelet Volume 11.4 fL (7.4-10.4) Neutrophils (%) (Auto) 70.7 % Lymphocytes (%) (Auto) 21.5 % Monocytes (%) (Auto) 5.7 % Eosinophils (%) (Auto) 1.2 % Basophils (%) (Auto) 0.7 % Neutrophils # (Auto) 10.32 K/uL (1.4-6.5) Lymphocytes # (Auto) 3.13 K/uL (1.2-3.4) Monocytes # (Auto) 0.83 K/uL (0.11-0.59) Eosinophils # (Auto) 0.17 K/uL (0-0.5) Basophils # (Auto) 0.10 K/uL (0-0.2) RDW Standard Deviation 42.6 fL (36.4-46.3) RDW Coefficient of Variation 13.8 % (11.5-14.5) Immature Granulocyte % (Auto) 0.2 % Immature Granulocyte # (Auto) 0.03 K/uL (0.00-0.02) Erythrocyte Sedimentation Rate 22 mm/hr (0-21) Anion Gap 10.0 mmol/L (3-11) Est Creatinine Clear Calc Drug Dose 86.9 ml/min Estimated GFR () 118.4 Estimated GFR (Non- 102.1 BUN/Creatinine Ratio 12.9 (10-20) Calcium Level 9.4 mg/dl (8.5-10.1) Phosphorus Level 2.5 mg/dl (2.5-4.9) Magnesium Level 2.2 mg/dl (1.8-2.4) Total Bilirubin 0.2 mg/dl (0.2-1) Aspartate Amino Transf (AST/SGOT) 12 U/L (15-37) Alanine Aminotransferase (ALT/SGPT) 18 U/L (12-78) Alkaline Phosphatase 90 U/L (45-117) C-Reactive Protein 0.89 mg/dl (0-0.29) Total Protein 7.3 gm/dl (6.4-8.2) Albumin 3.8 gm/dl (3.4-5.0) Globulin 3.5 gm/dl (2.5-4.0) Albumin/Globulin Ratio 1.1 (0.9-2) Lipase 169 U/L (73-393) Procalcitonin < 0.05 ng/mL (0-0.5) Bedside Lactic Acid Venous 0.96 mmol/L (0.90-1.70) Medications Administered Medications (Trade) Dose Ordered Sig/Karlo Route Start Time Stop Time Status Last Admin Dose Admin Metronidazole 500 mg/Prmx 100 ml @ 100 mls/hr TODAY@1600 ONCE IV 03/13/16 16:00 03/13/16 16:59 DC 03/13/16 17:10 100 MLS/HR Vancomycin HCl/ Sodium Chloride (Vancomycin Inj/ Nss 250ml) 277 ml @ 125 mls/hr TODAY@1600 ONCE IV 03/13/16 16:00 03/13/16 18:12 DC 03/13/16 18:18 125 MLS/HR ED Course Patient was seen and evaluated by myself. I am familiar with this patient from her visit yesterday. She was contacted by hospital staff fascia grown out gram- positive cocci on her initial blood culture. Because of this, and her history of asplenia, the patient was contacted and informed to return immediately to the emergency department. Labs were drawn including repeat blood cultures. IV lock was established. I did discuss this case with pharmacy to suggest covering the patient prophylactically with Flagyl, vancomycin, and Rocephin. This information was relayed to the patient who acknowledges understanding. Case [facility] who agrees to admit the patient for further evaluation and management. Patient admitted in stable condition. Medical Decision Given the patient's presentation and stated complaints, I did elect to perform the above-mentioned workup. The patient presents today after her blood cultures grew out gram-positive cocci. I had a taking care of the patient yesterday. I had obtained blood cultures secondary to her history of a splenic as well as her what appear to be acute gastroenteritis at the time. She did have an elevated leukocytosis which has seemed to decrease somewhat today. She had no fevers overnight. She had no continued vomiting or diarrhea. She has had occasional upper abdominal discomfort. Regardless, the patient had positive blood cultures which is certain concern in the setting of an asplenic patient. Repeat blood cultures were obtained. She is had no further diarrheal stools so stool culture would be futile at this point. The patient will be admitted to the [facility] service for further antibiotic coverage while repeat cultures prior pending. The patient was admitted in stable condition. In the evaluation and treatment this patient, the following differential diagnoses were considered: Sepsis, DIC, gastroenteritis, duodenitis, amongst others. Impression Primary Impression: Bacteremia Additional Impressions: Asplenia, Leukocytosis, Positive blood cultures, Epigastric abdominal pain Departure Information Dispostion Admitted as an inpatient Condition FAIR Referrals Juan Branham III, M.D. (PCP) Forms WORK / SCHOOL INSTRUCTIONS, HOME CARE DOCUMENTATION FORM, IMPORTANT VISIT INFORMATION Patient Instructions A Signature Page, [facility]
[2016-03-14 00:10] LABS: MANUAL MICROSCOPIC REQUIRED? NO; REVIEW REQ? NO
[2016-03-14] MEDS: MoRPHine SULFATE 4 MG/ML 1 ML CARP\\VIAL IV PRN (02:15)
[2016-03-14 03:08] VITALS: BP 136/67; PULSE 70; TEMP 36.6; O2SAT 94
[2016-03-14] MEDS: VANCOMYCIN INJ 1,000 MG in SODIUM CHLORIDE 0.9% 250ML 250 ML IV SCH ×2 (03:25→14:07)
[2016-03-14 06:11] LABS: BASO % 0.4 %; BASO ABS # 0.06 K/uL (0-0.2); COMPLETE YES; EOS % 1.8 %; HEMATOCRIT 40.7 % (37-47); IG% 0.2 %; LYMPH % 30.9 %; LYMPH ABS # 4.22 K/uL (1.2-3.4); MEAN CELL VOLUME 86.2 fL (80-100); MEAN CORPUSCULAR HEMOGLOBIN 28.2 pg (25-34); MEAN CORPUSCULAR HGB CONC 32.7 g/dl (32-36); MEAN PLATELET VOLUME 11.4 fL (7.4-10.4); MONO % 7.6 %; NEUT % 59.1 %; PLATELET COUNT 477 K/uL (130-400); RED BLOOD COUNT 4.72 M/uL (4.2-5.4); WHITE BLOOD COUNT 13.64 K/uL (4.8-10.8)
[2016-03-14 06:46] LABS: BUN/CREATININE RATIO 11.9 (10-20); CALCIUM 8.2 mg/dl (8.5-10.1); CREATININE 0.67 mg/dl (0.60-1.20); MAGNESIUM 2.2 mg/dl (1.8-2.4)
[2016-03-14] MEDS: NICOTINE 21 MG/24 HR TDSY TD SCH (07:58)
[2016-03-14] MEDS: BuPROPion SR 150 MG TABCR PO SCH ×2 (07:58→20:20)
[2016-03-14] MEDS: TOPIRAMATE 25 MG TAB PO SCH ×2 (07:58→21:19)
[2016-03-14] MEDS: SUCRALFATE 1 GM/10 ML UDC PO SCH ×4 (07:59→20:18)
[2016-03-14] MEDS: METRONIDAZOLE / NSS 500 MG in PREMIXED NSS 100 ML IV SCH (07:59)
[2016-03-14 08:00] VITALS: BP 103/64; PULSE 67; TEMP 36.9; O2SAT 96
[2016-03-14] MEDS: FLUTICASONE PROPIONATE NA SPR 16 GM BTL NAE SCH (08:00)
[2016-03-14] MEDS: ALBUTEROL HFA 8 GM INHALER INH SCH ×4 (08:00→20:19)
[2016-03-14] MEDS ORDERED: PANTOprazole SOD 40 MG TAB PO SCH (09:00)
[2016-03-14] MEDS: PANTOprazole INJ 40 MG in SYRINGE 0 ML IV SCH ×2 (09:29→23:10)
--- NOTE | 2016-03-14 09:48 | Medical Consult ---
Consultation Date of Consultation: Mar 14, 2016. Attending Physician: Viraj Sherman MD Reason for Consultation: Bacteremia, asplenia History of Present Illness 46-year-old female with history of prior splenectomy secondary to trauma, as well as known aortic valve insufficiency, was seen in the emergency department yesterday because of acute onset of nausea, vomiting, diarrhea, without fever. Patient was given IV fluids, Zofran, and Protonix with improvement. CT scan of the abdomen was obtained, read by me, which showed no obvious intra-abdominal pathology. Patient was discharged home, but was recalled because of positive blood culture with 1 bottle growing gram-positive cocci. Patient has been started on broad-spectrum IV antibiotics. Cultures of blood from this admission are pending. Patient denies any antecedent illness. No current fever. No significant travel or exposure history. Has had appropriate vaccinations following splenectomy. Past Medical/Surgical History Medical Problems: (1) Asplenia Status: Acute (2) Epigastric abdominal pain Status: Acute (3) Epigastric abdominal pain Status: Acute (4) Headache Status: Acute (5) Leukocytosis Status: Acute (6) Nausea vomiting and diarrhea Status: Acute (7) Positive blood cultures Status: Acute (8) Wrist sprain Status: Acute Medical Problems: (1) Aortic valve insufficiency (2) Asthma (3) Bacteremia (4) Bipolar disorder (5) Bronchitis (6) Hyperlipidemia (7) Migraines (8) Pneumonia Surgical Problems: (1) H/O splenectomy (2) History of dental surgery Family History Cancer Diabetes mellitus FHx: gallbladder disease Heart disease MOTHER Hypertension MOTHER Lung disease Seizures Stroke MOTHER Social History Smoking Status: Current Every Day Smoker Alcohol Use: none Drug Use: none Marital Status: Housing Status: lives with significant other Occupation Status: unemployed Allergies Coded Allergies: Clindamycin (Verified Allergy, Mild, 03/13/16) Penicillins (Verified Allergy, Mild, 03/13/16) BEE STING (Verified Allergy, Unknown, hives/swelling, 03/13/16) Aspirin (Verified Adverse Reaction, Unknown, 03/13/16) Current Inpatient Medications Current Inpatient Medications Medications (Trade) Dose Ordered Sig/Karlo Route Start Time Stop Time Status Last Admin Dose Admin Baclofen (Lioresal Tab) 10 mg TID PRN PO 03/13/16 18:00 04/12/16 17:59 Bupropion HCl (Wellbutrin-Sr Tab) 150 mg BID PO 03/13/16 21:00 04/12/16 20:59 03/14/16 07:58 150 MG Fluticasone Propionate (Flonase Nasal [place]) 2 sprays DAILY CURTIS 03/14/16 09:00 04/13/16 08:59 03/14/16 08:00 2 SPRAYS Meclizine HCl (Antivert Tab) 25 mg TID PRN PO 03/13/16 18:00 04/12/16 17:59 Topiramate (Topamax Tab) 50 mg BID PO 03/13/16 21:00 04/12/16 20:59 03/14/16 07:58 50 MG Albuterol (Ventolin Hfa Inhaler) 2 puffs QID INH 03/13/16 21:00 04/12/16 20:59 03/13/16 22:03 2 PUFFS Cyclobenzaprine HCl (Flexeril Tab) 5 mg TID PRN PO 03/13/16 18:00 04/12/16 17:59 Nicotine (Nicoderm Cq 21MG Patch) 1 patch QAM TD 03/14/16 09:00 04/13/16 08:59 03/14/16 07:58 1 PATCH Miscellaneous (Remove Nicoderm Patch) 1 ea HS N/A 03/13/16 21:00 04/12/16 20:59 Acetaminophen (Tylenol Tab) 650 mg Q4H PRN PO 03/13/16 18:30 04/12/16 18:29 Ondansetron HCl 4 mg 4 mg Q6H PRN IV 03/13/16 18:30 04/12/16 18:29 Pantoprazole Sodium/Syringe (Protonix Inj/ Syringe) 10 ml @ 5 mls/min DAILY@09,21 IV 03/13/16 21:00 04/12/16 20:59 03/14/16 09:29 5 MLS/MIN Vancomycin HCl (Consult) 1 ea UD PRN N/A 03/13/16 18:46 04/12/16 18:45 Miscellaneous Information (Pharmacy Consult) 1 ea UD PRN N/A 03/13/16 18:48 04/12/16 18:47 Metronidazole (Consult) 1 ea UD PRN N/A 03/13/16 18:48 04/12/16 18:47 Al Hydroxide/Mg Hydroxide 30 ml 30 ml Q6H PRN PO 03/13/16 18:30 04/12/16 18:29 03/13/16 21:51 30 ML Dextrose/Sodium Chloride (D5W And Nss) 1,000 ml @ 125 mls/hr Q8H IV 03/13/16 18:30 04/12/16 18:29 03/13/16 21:37 125 MLS/HR Morphine Sulfate (MoRPHine SULFATE INJ) 4 mg Q4 PRN IV 03/13/16 18:45 03/27/16 18:44 03/14/16 02:15 4 MG Ioversol 111 ml 111 ml UD PRN IV 03/13/16 18:45 03/17/16 18:44 Metronidazole 500 mg/Prmx 100 ml @ 100 mls/hr Q8H IV 03/14/16 00:00 03/16/16 00:00 03/14/16 07:59 100 MLS/HR Ceftriaxone Sodium 2000 mg/ Dextrose 70 ml @ 100 mls/hr Q24H IV 03/13/16 21:00 03/15/16 20:59 03/13/16 21:37 100 MLS/HR Vancomycin HCl/ Sodium Chloride (Vancomycin Inj/ Nss 250ml) 270 ml @ 125 mls/hr Q10H IV 03/14/16 04:00 03/16/16 03:59 03/14/16 03:25 125 MLS/HR Sucralfate (Carafate Susp) 1 gm QID PO 03/14/16 09:00 04/13/16 08:59 03/14/16 07:59 1 GM Review of Systems Constitutional: + weakness, No chills, No fever Eyes: No problem reported ENT: No problem reported Respiratory: No problem reported Cardiovascular: No problem reported Abdomen: + diarrhea, + nausea, + pain, + vomiting Musculoskeletal: + joint pain (right shoulder) Genitourinary - Female: No problem reported Neurologic: No problem reported Psychiatric: No problem reported Endocrine: No problem reported Hematologic / Lymphatic: No problem reported Integumentary: No problem reported Allergic / Immunologic: No problem reported Physical Exam Date Time Temp Pulse Resp B/P Pulse Ox O2 Delivery O2 Flow Rate FiO2 03/14/16 08:00 36.9 67 18 103/64 96 Room Air 1/5/17 03:08 03/13/16 23:59 Room Air 03/13/16 23:40 36.7 79 18 109/72 98 Room Air 03/13/16 20:57 36.9 70 18 104/66 96 Room Air 03/13/16 20:37 74 19 100/65 95 Room Air 03/13/16 19:48 Room Air 03/13/16 18:19 71 18 106/86 95 Room Air 03/13/16 15:42 36.9 91 16 108/74 98 Room Air General Appearance: WD/WN, no apparent distress Head: normocephalic, atraumatic Eyes: normal inspection, EOMI, sclerae normal ENT: normal ENT inspection, hearing grossly normal, pharynx normal Neck: supple, no adenopathy, thyroid normal, trachea midline Respiratory/Chest: chest non-tender, lungs clear, normal breath sounds, no respiratory distress Cardiovascular: regular rate, rhythm, no gallop, no murmur Abdomen/GI: normal bowel sounds, soft, no organomegaly, + tenderness (mild epigastric) Back: normal inspection, no CVA tenderness Extremities/Musculoskelatal: normal inspection, no calf tenderness, normal capillary refill Neurologic/Psych: alert, normal mood/affect, oriented x 3 Skin: normal color, warm/dry, no rash Lymphatic: no adenopathy Laboratory Results Date/Time Source Procedure Growth Status 03/13/16 16:18 Blood Blood Culture Pending Received 03/13/16 16:15 Blood Blood Culture Pending Received 03/13/16 23:45 Urine , Clean Catch Urine Culture Pending Received Last 24 Hours Test 03/13/16 16:30 03/13/16 16:34 03/13/16 23:45 03/14/16 05:44 White Blood Count 14.58 K/uL 13.64 K/uL Red Blood Count 4.88 M/uL 4.72 M/uL Hemoglobin 14.2 g/dL 13.3 g/dL Hematocrit 41.6 % 40.7 % Mean Corpuscular Volume 85.2 fL 86.2 fL Mean Corpuscular Hemoglobin 29.1 pg 28.2 pg Mean Corpuscular Hemoglobin Concent 34.1 g/dl 32.7 g/dl Platelet Count 482 K/uL 477 K/uL Mean Platelet Volume 11.4 fL 11.4 fL Neutrophils (%) (Auto) 70.7 % 59.1 % Lymphocytes (%) (Auto) 21.5 % 30.9 % Monocytes (%) (Auto) 5.7 % 7.6 % Eosinophils (%) (Auto) 1.2 % 1.8 % Basophils (%) (Auto) 0.7 % 0.4 % Neutrophils # (Auto) 10.32 K/uL 8.06 K/uL Lymphocytes # (Auto) 3.13 K/uL 4.22 K/uL Monocytes # (Auto) 0.83 K/uL 1.03 K/uL Eosinophils # (Auto) 0.17 K/uL 0.24 K/uL Basophils # (Auto) 0.10 K/uL 0.06 K/uL RDW Standard Deviation 42.6 fL 43.4 fL RDW Coefficient of Variation 13.8 % 13.8 % Immature Granulocyte % (Auto) 0.2 % 0.2 % Immature Granulocyte # (Auto) 0.03 K/uL 0.03 K/uL Erythrocyte Sedimentation Rate 22 mm/hr Sodium Level 137 mmol/L 140 mmol/L Potassium Level 4.4 mmol/L 4.0 mmol/L Chloride Level 107 mmol/L 111 mmol/L Carbon Dioxide Level 20 mmol/L 20 mmol/L Anion Gap 10.0 mmol/L 9.0 mmol/L Blood Urea Nitrogen 9 mg/dl 8 mg/dl Creatinine 0.71 mg/dl 0.67 mg/dl Est Creatinine Clear Calc Drug Dose 86.9 ml/min 90.9 ml/min Estimated GFR () 118.4 122.2 Estimated GFR (Non- 102.1 105.4 BUN/Creatinine Ratio 12.9 11.9 Random Glucose 98 mg/dl 91 mg/dl Calcium Level 9.4 mg/dl 8.2 mg/dl Phosphorus Level 2.5 mg/dl Magnesium Level 2.2 mg/dl 2.2 mg/dl Total Bilirubin 0.2 mg/dl Aspartate Amino Transf (AST/SGOT) 12 U/L Alanine Aminotransferase (ALT/SGPT) 18 U/L Alkaline Phosphatase 90 U/L C-Reactive Protein 0.89 mg/dl Total Protein 7.3 gm/dl Albumin 3.8 gm/dl Globulin 3.5 gm/dl Albumin/Globulin Ratio 1.1 Lipase 169 U/L Procalcitonin < 0.05 ng/mL Bedside Lactic Acid Venous 0.96 mmol/L Urine Color YELLOW Urine Appearance CLEAR Urine pH 7.5 Urine Specific [place] 1.007 Urine Protein NEG Urine Glucose (UA) NEG Urine Ketones NEG Urine Occult Blood NEG Urine Nitrite NEG Urine Bilirubin NEG Urine Urobilinogen NEG Urine Leukocyte Esterase NEG ABDOMEN AND PELVIS CT WITH IV CONTRAST CT DOSE: 322.03 mGy.cm HISTORY: epigastric pain - 19k white count - h/o splenectomy TECHNIQUE: Multiaxial CT images of the abdomen and pelvis were performed following the use of intravenous contrast. COMPARISON STUDY: Abdominal ultrasound 03/12/2016. FINDINGS: The lung bases are clear. No pneumoperitoneum. No pneumatosis. No suspicious lytic or blastic osseous lesions. The liver, gallbladder, adrenal glands, and pancreas are unremarkable. The left kidney enhances normally. There is a 4 mm hypodense lesion within the upper pole the right kidney. This is too small to characterize. No hydronephrosis. No retroperitoneal lymphadenopathy. There is high-grade stenosis at the origin of the right common iliac artery and mild stenosis at the origin of the left common iliac artery. The bilateral iliac arteries appear hypoplastic. The bladder is unremarkable. Multiple enhancing lesions within the uterus with the largest on the right measuring 2 cm. These likely represent fibroids. Normal left ovary. There are 2 cysts within the right ovary with the largest measuring 2.1 cm. No pelvic free fluid. Normal bladder. No bowel wall thickening or obstruction. Normal appendix. Small soft tissue nodules inferior to pylorus may represent small lymph nodes. These measure up to 8 mm in size. Prior splenectomy. There are few small areas of splenic tissue scattered throughout the left upper quadrant consistent with splenosis. IMPRESSION: 1. No bowel wall thickening or obstruction. 2. Normal appendix. 3. Prior splenectomy. There are few small areas of splenic tissue scattered throughout the left upper quadrant consistent with splenosis. 4. Small soft tissue nodules inferior to pylorus may represent small lymph nodes. These measure up to 8 mm in size. These are of uncertain clinical significance. 5. 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 The bilateral iliac arteries appear hypoplastic. Electronically signed by: Yanira Decker Assessment & Plan 46 yo female s/p splenectomy with acute onset of GI symptoms, now somewhat better, with positive blood cultures for gram positive cocci. Not clear whether contaminant or true pathogen. Given significant risk because of splenectomy and aortic valve disease, agree with IV antibiotics pending final identification. Would obtain echocardiogram. GI to evaluate. Will follow.
[2016-03-14] MEDS: D5W AND NSS 1,000 ML IV SCH ×2 (10:44→20:16)
--- NOTE | 2016-03-14 10:59 | Gastrointestinal Consultation ---
Gastrointestinal Consultation Date of Consultation: Mar 14, 2016 History of Present Illness Patient is a 46 year old female with past medical history significant for splenectomy, asthma, AV insufficiency, migraine, reflux and neckpain who presented to the ED on Friday with +gram positive cocci blood culture, abdominal pain, nausea, vomiting, diarrhea and an increase in her reflux symptoms. She states that she has had no sick contacts. Her abdominal pain, nausea, vomiting, diarrhea have subsided on Friday. I was consulted today for evaluation of worsening reflux. Patient states that she has had reflux for a while now (unable to determine a start date) for which was managed conservatively with tums and diet modification. She states that she has been getting worse symptoms, with epigastric burning and a foul taste in the back of her throat. She has noticed that her epigastric pain is often worse after eating - the pain becomes sharper. She does not take any other medications for reflux at home. She denies diarrhea, bloody/black stools/emesis, SOB, chest pain , fevers, chills, weight loss, change in voice, hoarseness, unexplained cough. She is hemodynamically stable, with an elevated white count of 14. There is no elevation in her lipase. She reports since being admitted and started on PPI BID she notes she is starting to feel better with less symptoms. Work-up to date: Abd CT 03/12/16 No bowel wall thickening or obstruction. Normal appendix. Prior splenectomy. There are few small areas of splenic tissue scattered throughout the left upper quadrant consistent with splenosis. Small soft tissue nodules inferior to pylorus may represent small lymph nodes. These measure up to 8 mm in size. These are of uncertain clinical significance. 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 The bilateral iliac arteries appear hypoplastic. Abd US 03/12/16 Normal gallbladder. No gallstones. A 5 mm hyperechoic lesion within the upper pole of the right kidney. This could represent a focal area of scarring versus a small angiomyolipoma. No previous EGD/Colonoscopy Past Medical/Surgical History Medical Problems: (1) Asplenia Status: Acute (2) Epigastric abdominal pain Status: Acute (3) Epigastric abdominal pain Status: Acute (4) Headache Status: Acute (5) Leukocytosis Status: Acute (6) Nausea vomiting and diarrhea Status: Acute (7) Positive blood cultures Status: Acute (8) Wrist sprain Status: Acute Family History Cancer Diabetes mellitus FHx: gallbladder disease Heart disease MOTHER Hypertension MOTHER Lung disease Seizures Stroke MOTHER Social History Smoking Status: Current Every Day Smoker Alcohol Use: none Drug Use: none Marital Status: Housing Status: lives with significant other Occupation Status: unemployed Allergies Coded Allergies: Clindamycin (Verified Allergy, Mild, 03/13/16) Penicillins (Verified Allergy, Mild, 03/13/16) BEE STING (Verified Allergy, Unknown, hives/swelling, 03/13/16) Aspirin (Verified Adverse Reaction, Unknown, 03/13/16) Current Medications Home Meds and Scripts Medications Dose Route/Sig Max Daily Dose Days Date Category Dose Instructions Mobic (Meloxicam) 7.5 Mg Tab 7.5 Mg PO BID 03/13/16 Reported Flonase Allergy Relief (Fluticasone Propionate (Nasal)) 50 Mcg/Act Spr 2 Sprays CURTIS DAILY 03/13/16 Reported Cyclobenzaprine (Cyclobenzaprine (Bulk)) 1 Pow Pow 5 Mg PO TID PRN 03/13/16 Reported Lioresal (Baclofen) 10 Mg Tab 1 Tab PO TID PRN 30 03/13/16 Reported Proair Respiclick (Albuterol Sulfate) 108 Mcg/Act Aer 2 Puffs INH QID 03/13/16 Reported Keflex (Cephalexin Monohydrate) 500 Mg Cap 500 Mg PO TID 7 03/12/16 Rx [place] 5MG/325MG (Acetaminophen/Hydrocodone Bitart) Tab 1-2 Tablet PO Q4H PRN 03/12/16 Rx For Initial Treatment Protonix (Pantoprazole Sodium) 40 Mg Tab 40 Mg PO DAILY 14 03/12/16 Rx Meclizine HCl 25 Mg Tab 25 Mg PO TID PRN 03/12/16 Reported Topamax (Topiramate) 50 Mg Tab 50 Mg PO BID 03/12/16 Reported Wellbutrin Sr (Bupropion Hcl) 150 Mg Tab 150 Mg PO BID 06/26/15 Reported Epipen 2-Jalen (Epinephrine) 0.3 Mg Inj 0.3 Mg IM UD PRN 10/26/12 Reported ONE INJECTION DIRECTED. Review of Systems Constitutional: No chills, No fever Abdomen: + pain, No GI bleeding, No constipation, No diarrhea, No nausea, No vomiting Physical Exam Date Time Temp Pulse Resp B/P Pulse Ox O2 Delivery O2 Flow Rate FiO2 03/14/16 08:00 Room Air 03/14/16 08:00 36.9 67 18 103/64 96 Room Air 03/14/16 03:08 03/13/16 23:59 Room Air 03/13/16 23:40 36.7 79 18 109/72 98 Room Air 03/13/16 20:57 36.9 70 18 104/66 96 Room Air 03/13/16 20:37 74 19 100/65 95 Room Air 03/13/16 19:48 Room Air 03/13/16 18:19 71 18 106/86 95 Room Air 03/13/16 15:42 36.9 91 16 108/74 98 Room Air General Appearance: no apparent distress Eyes: PERRL ENT: hearing grossly normal Respiratory/Chest: chest non-tender, lungs clear, normal breath sounds, no respiratory distress, no accessory muscle use Cardiovascular: regular rate, rhythm, no edema, no gallop, no JVD, no murmur Abdomen: normal bowel sounds, soft, no organomegaly, no pulsatile mass, + tenderness (epigastric tenderness with palpation) Neurologic/Psych: alert, normal mood/affect, oriented x 3 Skin: normal color, no jaundice, warm/dry, no rash Laboratory Results Last 24 Hours Test 03/13/16 16:30 03/13/16 16:34 03/13/16 23:45 03/14/16 05:44 White Blood Count 14.58 K/uL 13.64 K/uL Red Blood Count 4.88 M/uL 4.72 M/uL Hemoglobin 14.2 g/dL 13.3 g/dL Hematocrit 41.6 % 40.7 % Mean Corpuscular Volume 85.2 fL 86.2 fL Mean Corpuscular Hemoglobin 29.1 pg 28.2 pg Mean Corpuscular Hemoglobin Concent 34.1 g/dl 32.7 g/dl Platelet Count 482 K/uL 477 K/uL Mean Platelet Volume 11.4 fL 11.4 fL Neutrophils (%) (Auto) 70.7 % 59.1 % Lymphocytes (%) (Auto) 21.5 % 30.9 % Monocytes (%) (Auto) 5.7 % 7.6 % Eosinophils (%) (Auto) 1.2 % 1.8 % Basophils (%) (Auto) 0.7 % 0.4 % Neutrophils # (Auto) 10.32 K/uL 8.06 K/uL Lymphocytes # (Auto) 3.13 K/uL 4.22 K/uL Monocytes # (Auto) 0.83 K/uL 1.03 K/uL Eosinophils # (Auto) 0.17 K/uL 0.24 K/uL Basophils # (Auto) 0.10 K/uL 0.06 K/uL RDW Standard Deviation 42.6 fL 43.4 fL RDW Coefficient of Variation 13.8 % 13.8 % Immature Granulocyte % (Auto) 0.2 % 0.2 % Immature Granulocyte # (Auto) 0.03 K/uL 0.03 K/uL Erythrocyte Sedimentation Rate 22 mm/hr Sodium Level 137 mmol/L 140 mmol/L Potassium Level 4.4 mmol/L 4.0 mmol/L Chloride Level 107 mmol/L 111 mmol/L Carbon Dioxide Level 20 mmol/L 20 mmol/L Anion Gap 10.0 mmol/L 9.0 mmol/L Blood Urea Nitrogen 9 mg/dl 8 mg/dl Creatinine 0.71 mg/dl 0.67 mg/dl Est Creatinine Clear Calc Drug Dose 86.9 ml/min 90.9 ml/min Estimated GFR () 118.4 122.2 Estimated GFR (Non- 102.1 105.4 BUN/Creatinine Ratio 12.9 11.9 Random Glucose 98 mg/dl 91 mg/dl Calcium Level 9.4 mg/dl 8.2 mg/dl Phosphorus Level 2.5 mg/dl Magnesium Level 2.2 mg/dl 2.2 mg/dl Total Bilirubin 0.2 mg/dl Aspartate Amino Transf (AST/SGOT) 12 U/L Alanine Aminotransferase (ALT/SGPT) 18 U/L Alkaline Phosphatase 90 U/L C-Reactive Protein 0.89 mg/dl Total Protein 7.3 gm/dl Albumin 3.8 gm/dl Globulin 3.5 gm/dl Albumin/Globulin Ratio 1.1 Lipase 169 U/L Procalcitonin < 0.05 ng/mL Bedside Lactic Acid Venous 0.96 mmol/L Urine Color YELLOW Urine Appearance CLEAR Urine pH 7.5 Urine Specific [place] 1.007 Urine Protein NEG Urine Glucose (UA) NEG Urine Ketones NEG Urine Occult Blood NEG Urine Nitrite NEG Urine Bilirubin NEG Urine Urobilinogen NEG Urine Leukocyte Esterase NEG Impression Patient is a 46 year old female with nausea/vomiting/diarrhea increased acid reflux and epigastric pain, with a normal lipase and unremarkable abd US and abd CT from a GI standpoint. N/V/D has since resolved. Differentials include viral gastroenteritis, ulcer disease, gastritis, reflux etc Plan PPI BID PO 4-6 weeks then PPI once daily GI ok to feed Please follow up with PCP Please follow up with GI if symptoms persist can schedule an outpatient EGD if needed Please call with any questions or concerns.
[2016-03-14 12:01] VITALS: BP 112/59; PULSE 63; TEMP 36.8; O2SAT 96
--- NOTE | 2016-03-14 13:55 | Progress Note ---
Medicine Progress Note Date & Time of Visit: Mar 14, 2016 at 13:41. (Mary Prabhakar PA-C) Subjective Patient seen and examined. She is feeling much better today. Epigastric abdominal pain and reflux resolved. No further nausea or vomiting. No further BM since hospitalization yesterday. She tolerated 100% of her clear liquid lunch. States her urine is dark yellow. She denies any chest pain, SOB, wheezing , cough, dysuria, frequency. She would like to ambulate in the hallway. (Mray Prabhakar PA-C) Objective Last 8 Hrs Date Time Temp Pulse Resp B/P Pulse Ox O2 Delivery O2 Flow Rate FiO2 03/14/16 12:01 36.8 63 18 112/59 96 Nasal Cannula 2.0 03/14/16 08:00 Room Air 03/14/16 08:00 36.9 67 18 103/64 96 Room Air Physical Exam: General-pleasant alert cooperative 46 year old female, sitting up in bed, no distress Eyes-anicteric ENT-hearing grossly intact Neck-trachea midline Lungs-CTA bilaterally, no wheezes, crackles, rhonchi, no resp distress, no accessory muscle use Heart-RRR, mo murmur Abdomen-soft, nontender, non distended, BS present Extremities- no edema, no calf tenderness, no deformity Neuro- alert and oriented x 3, affect normal, grossly nonfocal exam Laboratory Results: Last 24 Hours Test 03/13/16 16:30 03/13/16 16:34 03/13/16 23:45 03/14/16 05:44 White Blood Count 14.58 K/uL 13.64 K/uL Red Blood Count 4.88 M/uL 4.72 M/uL Hemoglobin 14.2 g/dL 13.3 g/dL Hematocrit 41.6 % 40.7 % Mean Corpuscular Volume 85.2 fL 86.2 fL Mean Corpuscular Hemoglobin 29.1 pg 28.2 pg Mean Corpuscular Hemoglobin Concent 34.1 g/dl 32.7 g/dl Platelet Count 482 K/uL 477 K/uL Mean Platelet Volume 11.4 fL 11.4 fL Neutrophils (%) (Auto) 70.7 % 59.1 % Lymphocytes (%) (Auto) 21.5 % 30.9 % Monocytes (%) (Auto) 5.7 % 7.6 % Eosinophils (%) (Auto) 1.2 % 1.8 % Basophils (%) (Auto) 0.7 % 0.4 % Neutrophils # (Auto) 10.32 K/uL 8.06 K/uL Lymphocytes # (Auto) 3.13 K/uL 4.22 K/uL Monocytes # (Auto) 0.83 K/uL 1.03 K/uL Eosinophils # (Auto) 0.17 K/uL 0.24 K/uL Basophils # (Auto) 0.10 K/uL 0.06 K/uL RDW Standard Deviation 42.6 fL 43.4 fL RDW Coefficient of Variation 13.8 % 13.8 % Immature Granulocyte % (Auto) 0.2 % 0.2 % Immature Granulocyte # (Auto) 0.03 K/uL 0.03 K/uL Erythrocyte Sedimentation Rate 22 mm/hr Sodium Level 137 mmol/L 140 mmol/L Potassium Level 4.4 mmol/L 4.0 mmol/L Chloride Level 107 mmol/L 111 mmol/L Carbon Dioxide Level 20 mmol/L 20 mmol/L Anion Gap 10.0 mmol/L 9.0 mmol/L Blood Urea Nitrogen 9 mg/dl 8 mg/dl Creatinine 0.71 mg/dl 0.67 mg/dl Est Creatinine Clear Calc Drug Dose 86.9 ml/min 90.9 ml/min Estimated GFR () 118.4 122.2 Estimated GFR (Non- 102.1 105.4 BUN/Creatinine Ratio 12.9 11.9 Random Glucose 98 mg/dl 91 mg/dl Calcium Level 9.4 mg/dl 8.2 mg/dl Phosphorus Level 2.5 mg/dl Magnesium Level 2.2 mg/dl 2.2 mg/dl Total Bilirubin 0.2 mg/dl Aspartate Amino Transf (AST/SGOT) 12 U/L Alanine Aminotransferase (ALT/SGPT) 18 U/L Alkaline Phosphatase 90 U/L C-Reactive Protein 0.89 mg/dl Total Protein 7.3 gm/dl Albumin 3.8 gm/dl Globulin 3.5 gm/dl Albumin/Globulin Ratio 1.1 Lipase 169 U/L Procalcitonin < 0.05 ng/mL Bedside Lactic Acid Venous 0.96 mmol/L Urine Color YELLOW Urine Appearance CLEAR Urine pH 7.5 Urine Specific [place] 1.007 Urine Protein NEG Urine Glucose (UA) NEG Urine Ketones NEG Urine Occult Blood NEG Urine Nitrite NEG Urine Bilirubin NEG Urine Urobilinogen NEG Urine Leukocyte Esterase NEG Date/Time Source Procedure Growth Status 03/13/16 16:18 Blood Blood Culture Pending Received 03/13/16 16:15 Blood Blood Culture Pending Received 03/13/16 23:45 Urine , Clean Catch Urine Culture Pending Received (Mary Prabhakar PA-C) Assessment & Plan BACTEREMIA in setting of ASPLENIA Has chronic leukocytosis; remains afebrile; no tachycardia; no hypotension; lactic acid WNL Blood culture 03/12/16 grew gram positive cocci x 1 bottle- alpha strep not S. pneumo/ enterococcus, no sensitivity to follow Repeat blood cultures pending, urine Cx pending (UA WNL) On vancomycin, ceftriaxone, and metronidazole Consult infectious disease- seen by Dr. Rodriges, appreciate input Check echo as per ID recommendation EPIGASTRIC ABDOMINAL PAIN Possibly due to gastritis Resolved, now tolerating clear liquids CT A/P on 03/12/16- " 1. No bowel wall thickening or obstruction. 2. Normal appendix. 3. Prior splenectomy. There are few small areas of splenic tissue scattered throughout the left upper quadrant consistent with splenosis. 4. Small soft tissue nodules inferior to pylorus may represent small lymph nodes. These measure up to 8 mm in size. These are of uncertain clinical significance. 5. 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 The bilateral iliac arteries appear hypoplastic." RUQ US on - "1. Normal gallbladder. No gallstones. 2. A 5 mm hyperechoic lesion within the upper pole of the right kidney. This could represent a focal area of scarring versus a small angiomyolipoma." LFT's and lipase WNL IV Protonix BID- will be discharged on BID PPI x 4-6 weeks then daily PPI Sucralfate and Maalox Consult GI- appreciate input ASTHMA Not in acute exacerbation Continue home inhaler DVT PROPHYLAXIS SCDs, ambulate DISPOSITION Admit to med/surg Follows with Dr. Branham for primary care Patient seen in collaboration with Dr. Sherman. Please see his addendum. Current Inpatient Medications: Current Inpatient Medications Medications (Trade) Dose Ordered Sig/Karlo Route Start Time Stop Time Status Last Admin Dose Admin Baclofen (Lioresal Tab) 10 mg TID PRN PO 03/13/16 18:00 04/12/16 17:59 Bupropion HCl (Wellbutrin-Sr Tab) 150 mg BID PO 03/13/16 21:00 04/12/16 20:59 03/14/16 07:58 150 MG Fluticasone Propionate (Flonase Nasal [place]) 2 sprays DAILY CURTIS 03/14/16 09:00 04/13/16 08:59 03/14/16 08:00 2 SPRAYS Meclizine HCl (Antivert Tab) 25 mg TID PRN PO 03/13/16 18:00 04/12/16 17:59 Topiramate (Topamax Tab) 50 mg BID PO 03/13/16 21:00 04/12/16 20:59 03/14/16 07:58 50 MG Albuterol (Ventolin Hfa Inhaler) 2 puffs QID INH 03/13/16 21:00 04/12/16 20:59 03/13/16 22:03 2 PUFFS Cyclobenzaprine HCl (Flexeril Tab) 5 mg TID PRN PO 03/13/16 18:00 04/12/16 17:59 Nicotine (Nicoderm Cq 21MG Patch) 1 patch QAM TD 03/14/16 09:00 04/13/16 08:59 03/14/16 07:58 1 PATCH Miscellaneous (Remove Nicoderm Patch) 1 ea HS N/A 03/13/16 21:00 04/12/16 20:59 Acetaminophen (Tylenol Tab) 650 mg Q4H PRN PO 03/13/16 18:30 04/12/16 18:29 Ondansetron HCl 4 mg 4 mg Q6H PRN IV 03/13/16 18:30 04/12/16 18:29 Pantoprazole Sodium/Syringe (Protonix Inj/ Syringe) 10 ml @ 5 mls/min DAILY@, IV 03/13/16 21:00 04/12/16 20:59 03/14/16 09:29 5 MLS/MIN Vancomycin HCl (Consult) 1 ea UD PRN N/A 03/13/16 18:46 04/12/16 18:45 Miscellaneous Information (Pharmacy Consult) 1 ea UD PRN N/A 03/13/16 18:48 04/12/16 18:47 Metronidazole (Consult) 1 ea UD PRN N/A 03/13/16 18:48 04/12/16 18:47 Al Hydroxide/Mg Hydroxide 30 ml 30 ml Q6H PRN PO 03/13/16 18:30 04/12/16 18:29 03/13/16 21:51 30 ML Dextrose/Sodium Chloride (D5W And Nss) 1,000 ml @ 125 mls/hr Q8H IV 03/13/16 18:30 04/12/16 18:29 03/14/16 10:44 125 MLS/HR Morphine Sulfate (MoRPHine SULFATE INJ) 4 mg Q4 PRN IV 03/13/16 18:45 03/27/16 18:44 03/14/16 02:15 4 MG Ioversol 111 ml 111 ml UD PRN IV 03/13/16 18:45 03/17/16 18:44 Metronidazole 500 mg/Prmx 100 ml @ 100 mls/hr Q8H IV 03/14/16 00:00 03/16/16 00:00 03/14/16 07:59 100 MLS/HR Ceftriaxone Sodium 2000 mg/ Dextrose 70 ml @ 100 mls/hr Q24H IV 03/13/16 21:00 03/15/16 20:59 03/13/16 21:37 100 MLS/HR Vancomycin HCl/ Sodium Chloride (Vancomycin Inj/ Nss 250ml) 270 ml @ 125 mls/hr Q10H IV 03/14/16 04:00 03/16/16 03:59 03/14/16 03:25 125 MLS/HR Sucralfate (Carafate Susp) 1 gm QID PO 03/14/16 09:00 04/13/16 08:59 03/14/16 07:59 1 GM (Mary Prabhakar PA-C) ATTENDING ADDENDUM care coordinated with KWADWO Prabhakar please refer to her notes for full details, I agree with her notes patient seen and examined, records reviewed by myself as well on exam, patient seen resting in bed states she feels much better overall abdominal pain has resolved, requesting diet to be advanced no fever/chills no other symptoms VS noted and reviewed oriented x 3, not in distress, speaks in sentences with no effort nor accessory muscle use normal rate, regular rhythm, no murmurs clear breath sounds bilaterally non distended, soft, nontender no bipedal edema, erythema, warmth no neuro deficits WBC 13.6 Crea 0.6 ASSESSMENT/PLAN> POSSIBLE BACTEREMIA, IN THE SETTING OF ASPLENIA - afebrile - blood cultures pending - TTE: no signs of endocarditis - continue empiric antibiotics appreciate ID service eval EPIGASTRIC PAIN, LIKELY GASTRITIS OR PUD, RESOLVED - continue PPI, Sucralfate - possible outpatient EGD if persistent appreciate GI service eval other diagnoses and plan of care as per KWADWO Prabhakar's notes Viraj Sherman MD (Viraj Sherman MD)
[2016-03-14 16:00] VITALS: BP 98/65; PULSE 71; TEMP 36.8; O2SAT 96
--- NOTE | 2016-03-14 16:26 | ECHOCARDIOGRAM REPORT ---
*NOTICE TO RECEIVING CONSTITUTION PARTY AGENCY This information is strictly Confidential and protected under [place] law. [place] law prohibits you from making any further disclosure of this information unless further disclosure is expressly permitted by the written consent of the person to whom it pertains or is authorized by law. A general authorization for the release of medical or other information is not sufficient for this purpose. Hospital accepts no responsibility if the information is made available to any other person, INCLUDING THE PATIENT. Interpretation Summary * Name: MITCH MAGALLANES Study Date: 03/14/2016 04:04 PM BP: 112/59 mmHg * Patient Location: [facility]\S\N284\S\1 HR: 76 * : 1970 (M/d/yyyy) Gender: Female Height: 61 in * Age: 46 yrs Ethnicity: [place] Weight: 144 lb * Ordering Physician: Mary Prabhakar * Referring Physician: Self, Referred * Performed By: Chandrika Renee RCS * * Reason For Study: BACTEREMIA R/O ENDOCARDITIS * BSA: 1.6 m2 * -- Conclusions -- * Normal LV chamber size and wall thickness. * Normal LV systolic function, EF 60-65%. * No segmental left ventricular wall motion abnormalities are noted. * Grade I diastolic dysfunction. * Mild aortic regurgitation. * No valvular lesions consistent with endocarditis identified within the scope of this imaging modality. Procedure Details * A complete two-dimensional transthoracic echocardiogram was performed (2D, M-mode, Doppler and color flow Doppler). Left Ventricle * The left ventricle is normal in size. * There is normal left ventricular wall thickness. * Left ventricular systolic function is normal. * No segmental left ventricular wall motion abnormalities are noted. * The left ventricular wall motion is normal. Right Ventricle * The right ventricular cavity size is normal (basal dimension <4.2 cm in right ventricular apical 4-chamber view). * The right ventricular systolic function is normal as assessed by tricuspid annular plane systolic excursion (TAPSE) (normal >1.5 cm). Atria * The left atrial size is normal. * Right atrial size is normal. * No ASD detected; PFO is not assessed. Mitral Valve * The mitral valve is normal in structure and function. Tricuspid Valve * The tricuspid valve is normal in structure and function. Aortic Valve * The aortic valve is trileaflet. * No hemodynamically significant valvular aortic stenosis. * Mild aortic regurgitation. Pulmonic Valve * The pulmonary valve is not well seen, but the Doppler examination is normal without significant regurgitation or stenosis. Great Vessels * The aortic root is normal size. Pericardium/Pleural * There is no pericardial effusion. Left Ventricular Diastolic Function * Grade I diastolic dysfunction, (abnormal relaxation pattern). MMode 2D Measurements and Calculations IVSd 1.0 cm IVSs 1.2 cm LVIDd 4.7 cm LVIDs 3.6 cm LVPWd 1.0 cm LVPWs 1.2 cm IVS/LVPW 1.0 FS 23.1 % EDV(Teich) 104.7 ml ESV(Teich) 56.2 ml EF(Teich) 46.3 % EDV(cubed) 106.8 ml ESV(cubed) 48.6 ml EF(cubed) 54.5 % % IVS thick 19.5 % % LVPW thick 17.7 % LV mass(C)d 174.2 grams LV mass(C)dI 106.0 grams/m\S\2 LV mass(C)s 148.5 grams LV mass(C)sI 90.4 grams/m\S\2 SV(Teich) 48.5 ml SI(Teich) 29.5 ml/m\S\2 SV(cubed) 58.3 ml SI(cubed) 35.5 ml/m\S\2 Ao root diam 3.5 cm Ao root area 9.6 cm\S\2 LA dimension 2.6 cm LA/Ao 0.75 LVOT diam 1.8 cm LVOT area 2.5 cm\S\2 LVAd ap4 29.2 cm\S\2 LVLd ap4 7.9 cm EDV(MOD-sp4) 87.2 ml EDV(sp4-el) 91.9 ml LVAs ap4 16.9 cm\S\2 LVLs ap4 6.3 cm ESV(MOD-sp4) 37.4 ml ESV(sp4-el) 38.4 ml EF(MOD-sp4) 57.1 % EF(sp4-el) 58.2 % LVAd ap2 29.8 cm\S\2 LVLd ap2 7.9 cm EDV(MOD-sp2) 92.1 ml EDV(sp2-el) 95.4 ml LVAs ap2 14.4 cm\S\2 LVLs ap2 5.7 cm ESV(MOD-sp2) 31.4 ml ESV(sp2-el) 30.9 ml EF(MOD-sp2) 65.9 % EF(sp2-el) 67.6 % LVLd %diff 0.11 % EDV(MOD-bp) 90.2 ml LVLs %diff -11.15 % ESV(MOD-bp) 35.7 ml EF(MOD-bp) 60.4 % SV(MOD-sp4) 49.8 ml SI(MOD-sp4) 30.3 ml/m\S\2 SV(MOD-sp2) 60.7 ml SI(MOD-sp2) 37.0 ml/m\S\2 SV(MOD-bp) 54.5 ml SI(MOD-bp) 33.2 ml/m\S\2 SV(sp4-el) 53.5 ml SI(sp4-el) 32.6 ml/m\S\2 SV(sp2-el) 64.5 ml SI(sp2-el) 39.3 ml/m\S\2 Doppler Measurements and Calculations MV E max franck 85.7 cm/sec MV A max franck 104.1 cm/sec MV E/A 0.82 MV P1/2t max franck 124.8 cm/sec MV P1/2t 53.4 msec MVA(P1/2t) 4.1 cm\S\2 MV dec slope 684.5 cm/sec\S\2 MV dec time 0.26 sec Ao V2 max 160.1 cm/sec Ao max PG 10.3 mmHg Ao max PG (full) 4.0 mmHg BECKY(V,A) 2.0 cm\S\2 BECKY(V,D) 2.0 cm\S\2 AI max franck 431.4 cm/sec AI max PG 74.4 mmHg AI dec slope 119.1 cm/sec\S\2 AI P1/2t 1061.2 msec LV V1 max PG 6.3 mmHg LV V1 max 125.1 cm/sec MR max franck 434.3 cm/sec MR max PG 75.5 mmHg PA V2 max 108.9 cm/sec PA max PG 4.7 mmHg TR max franck 253.1 cm/sec
[2016-03-14] MEDS: CEFTRIAXONE SOD INJ 2,000 MG in DEXTROSE 5% 50ML 50 ML IV SCH (20:26)
[2016-03-14] MEDS ORDERED: SUCRALFATE 1 GM/10 ML UDC PO ONE (22:00)
[2016-03-15 00:14] VITALS: BP 137/84; PULSE 74; TEMP 36.9; O2SAT 96
[2016-03-15 05:53] LABS: BASO % 0.9 %; COMPLETE YES; EOS % 4.5 %; HEMATOCRIT 39.5 % (37-47); IG% 0.2 %; LYMPH % 33.8 %; LYMPH ABS # 3.89 K/uL (1.2-3.4); MEAN CELL VOLUME 87.8 fL (80-100); MEAN CORPUSCULAR HEMOGLOBIN 29.1 pg (25-34); MEAN CORPUSCULAR HGB CONC 33.2 g/dl (32-36); MONO % 9.9 %; NEUT % 50.7 %; PLATELET COUNT 448 K/uL (130-400)
[2016-03-15 06:27] LABS: BUN/CREATININE RATIO 7.9 (10-20); CALCIUM 8.4 mg/dl (8.5-10.1); CREATININE 0.8 mg/dl (0.60-1.20); MAGNESIUM 2.1 mg/dl (1.8-2.4); POTASSIUM 3.9 mmol/L (3.5-5.1)
[2016-03-15] MEDS: D5W AND NSS 1,000 ML IV SCH ×2 (06:38→20:41)
[2016-03-15 07:43] VITALS: BP_SYST 68; BP_SYST 75; BP_DIAS 45; BP_DIAS 46; PULSE 69; TEMP 36.7; O2SAT 97
[2016-03-15 07:59] VITALS: BP 113/65
[2016-03-15] MEDS ORDERED: SODIUM CHLORIDE 0.9% 500ML 500 ML IV SCH (08:00)
[2016-03-15] MEDS: BuPROPion SR 150 MG TABCR PO SCH ×2 (08:01→20:44)
[2016-03-15] MEDS: PANTOprazole INJ 40 MG in SYRINGE 0 ML IV SCH ×2 (08:01→20:43)
[2016-03-15] MEDS: SUCRALFATE 1 GM/10 ML UDC PO SCH ×4 (08:01→20:43)
[2016-03-15] MEDS: FLUTICASONE PROPIONATE NA SPR 16 GM BTL NAE SCH (08:02)
[2016-03-15] MEDS: ALBUTEROL HFA 8 GM INHALER INH SCH ×4 (08:02→20:43)
[2016-03-15] MEDS: TOPIRAMATE 25 MG TAB PO SCH ×2 (08:03→20:45)
[2016-03-15] MEDS: NICOTINE 21 MG/24 HR TDSY TD SCH (08:03)
--- NOTE | 2016-03-15 08:10 | Progress Note ---
Medicine Progress Note Date & Time of Visit: Mar 15, 2016 at 08:07. Subjective states she feels fine overall sitting up in bed, bright, just had breakfast no abdominal pain, nausea no fever/chills, weakness, cough, changes with urination denies other symptoms Objective Last 8 Hrs Date Time Temp Pulse Resp B/P Pulse Ox O2 Delivery O2 Flow Rate FiO2 03/15/16 07:59 113/65 03/15/16 07:43 36.7 69 16 75/46 97 Room Air 68/45 03/15/16 02:00 Room Air 03/15/16 00:14 36.9 74 18 137/84 96 Room Air Physical Exam: General- oriented x 3, not in distress, speaks in sentences with no effort Eyes- anicteric ENT- oropharynx clear Neck- supple, no JVD Lungs- clear to auscultation b/l Heart- normal rate, regular rhythm; no murmurs Abdomen- normal bowel sounds, soft, nontender Extremities- no pretibial edema, no calf tenderness; peripheral pulses intact Neuro- alert, oriented x 3; no gross focal deficits Skin- warm & dry Laboratory Results: Last 24 Hours Test 03/15/16 05:08 White Blood Count 11.50 K/uL Red Blood Count 4.50 M/uL Hemoglobin 13.1 g/dL Hematocrit 39.5 % Mean Corpuscular Volume 87.8 fL Mean Corpuscular Hemoglobin 29.1 pg Mean Corpuscular Hemoglobin Concent 33.2 g/dl Platelet Count 448 K/uL Mean Platelet Volume 12.0 fL Neutrophils (%) (Auto) 50.7 % Lymphocytes (%) (Auto) 33.8 % Monocytes (%) (Auto) 9.9 % Eosinophils (%) (Auto) 4.5 % Basophils (%) (Auto) 0.9 % Neutrophils # (Auto) 5.83 K/uL Lymphocytes # (Auto) 3.89 K/uL Monocytes # (Auto) 1.14 K/uL Eosinophils # (Auto) 0.52 K/uL Basophils # (Auto) 0.10 K/uL RDW Standard Deviation 45.1 fL RDW Coefficient of Variation 14.0 % Immature Granulocyte % (Auto) 0.2 % Immature Granulocyte # (Auto) 0.02 K/uL Sodium Level 144 mmol/L Potassium Level 3.9 mmol/L Chloride Level 114 mmol/L Carbon Dioxide Level 19 mmol/L Anion Gap 11.0 mmol/L Blood Urea Nitrogen 6 mg/dl Creatinine 0.80 mg/dl Est Creatinine Clear Calc Drug Dose 76.2 ml/min Estimated GFR () 102.5 Estimated GFR (Non- 88.4 BUN/Creatinine Ratio 7.9 Random Glucose 90 mg/dl Calcium Level 8.4 mg/dl Magnesium Level 2.1 mg/dl Assessment & Plan BACTEREMIA in setting of ASPLENIA Has chronic leukocytosis; remains afebrile; no tachycardia; no hypotension; lactic acid WNL Blood culture 03/12/16 grew gram positive cocci x 1 bottle- alpha strep not S. pneumo/ enterococcus, no sensitivity to follow -- blood cultures 03/13/15: no growth to day urine culture: pending -- transthoracic echo no signs of endocarditis -- remains afebrile, WBC improved to 11k -- On vancomycin, ceftriaxone, and metronidazole -- awaiting further ID recommendations, appreciate ID input EPIGASTRIC ABDOMINAL PAIN Possibly due to gastritis Resolved, now tolerating clear liquids CT A/P on 03/12/16- " 1. No bowel wall thickening or obstruction. 2. Normal appendix. 3. Prior splenectomy. There are few small areas of splenic tissue scattered throughout the left upper quadrant consistent with splenosis. 4. Small soft tissue nodules inferior to pylorus may represent small lymph nodes. These measure up to 8 mm in size. These are of uncertain clinical significance. 5. 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 The bilateral iliac arteries appear hypoplastic." RUQ US on - "1. Normal gallbladder. No gallstones. 2. A 5 mm hyperechoic lesion within the upper pole of the right kidney. This could represent a focal area of scarring versus a small angiomyolipoma." LFT's and lipase WNL evaluate by GI, appreciate the input IV Protonix BID, transition to BID PPI x 4-6 weeks then daily PPI Sucralfate and Maalox possible outpatient EGD if persistent ASTHMA Not in acute exacerbation Continue home inhaler DVT PROPHYLAXIS SCDs, ambulate DISPOSITION possible d/c home today if cleared by ID Current Inpatient Medications: Current Inpatient Medications Medications (Trade) Dose Ordered Sig/Karlo Route Start Time Stop Time Status Last Admin Dose Admin Baclofen (Lioresal Tab) 10 mg TID PRN PO 03/13/16 18:00 04/12/16 17:59 Bupropion HCl (Wellbutrin-Sr Tab) 150 mg BID PO 03/13/16 21:00 04/12/16 20:59 03/14/16 20:20 150 MG Fluticasone Propionate (Flonase Nasal [place]) 2 sprays DAILY CURTIS 03/14/16 09:00 04/13/16 08:59 03/14/16 08:00 2 SPRAYS Meclizine HCl (Antivert Tab) 25 mg TID PRN PO 03/13/16 18:00 04/12/16 17:59 Topiramate (Topamax Tab) 50 mg BID PO 03/13/16 21:00 04/12/16 20:59 03/14/16 21:19 50 MG Albuterol (Ventolin Hfa Inhaler) 2 puffs QID INH 03/13/16 21:00 04/12/16 20:59 03/14/16 20:19 2 PUFFS Cyclobenzaprine HCl (Flexeril Tab) 5 mg TID PRN PO 03/13/16 18:00 04/12/16 17:59 03/14/16 16:58 5 MG Nicotine (Nicoderm Cq 21MG Patch) 1 patch QAM TD 03/14/16 09:00 04/13/16 08:59 03/14/16 07:58 1 PATCH Miscellaneous (Remove Nicoderm Patch) 1 ea HS N/A 03/13/16 21:00 04/12/16 20:59 03/14/16 21:18 1 EA Acetaminophen (Tylenol Tab) 650 mg Q4H PRN PO 03/13/16 18:30 04/12/16 18:29 Ondansetron HCl 4 mg 4 mg Q6H PRN IV 03/13/16 18:30 04/12/16 18:29 Pantoprazole Sodium/Syringe (Protonix Inj/ Syringe) 10 ml @ 5 mls/min DAILY@,21 IV 03/13/16 21:00 04/12/16 20:59 03/14/16 23:10 5 MLS/MIN Miscellaneous Information (Pharmacy Consult) 1 ea UD PRN N/A 03/13/16 18:48 23/17 18:47 Al Hydroxide/Mg Hydroxide 30 ml 30 ml Q6H PRN PO 03/13/16 18:30 04/12/16 18:29 03/13/16 21:51 30 ML Dextrose/Sodium Chloride (D5W And Nss) 1,000 ml @ 75 mls/hr [id number] IV 03/13/16 18:30 04/12/16 18:29 03/15/16 06:38 75 MLS/HR Morphine Sulfate (MoRPHine SULFATE INJ) 4 mg Q4 PRN IV 03/13/16 18:45 03/27/16 18:44 03/14/16 02:15 4 MG Ioversol 111 ml 111 ml UD PRN IV 03/13/16 18:45 03/17/16 18:44 Ceftriaxone Sodium/Dextrose (Rocephin Inj/D5 50ml) 70 ml @ 100 mls/hr Q24H IV 03/13/16 21:00 03/15/16 20:59 03/14/16 20:26 100 MLS/HR Sucralfate 1 gm 1 gm QID PO 03/14/16 09:00 04/13/16 08:59 03/14/16 20:18 1 GM Sodium Chloride (Nss 500ml) 500 ml @ 999 mls/hr Q31M IV 03/15/16 08:00 03/15/16 08:30 UNV
[2016-03-15] MEDS ORDERED: VANCOMYCIN TROUGH ONE (09:30)
[2016-03-15 15:16] VITALS: BP 115/67; PULSE 81; TEMP 37; O2SAT 97
[2016-03-15 16:35] VITALS: O2SAT 97
--- NOTE | 2016-03-15 18:24 | Infectious Disease Progress Nt ---
Progress Note Date of Service Mar 15, 2016. Subjective Pt evaluation today including: conversation w/ patient, physical exam, chart review, lab review, review of studies, conversation w/ [employer] consultant, review of inpatient medication list offers no new complaints today. Remains afebrile. Tolerating antibiotics without apparent difficulty. All Other Systems: Reviewed and Negative Medications Current Inpatient Medications Medications (Trade) Dose Ordered Sig/Karlo Route Start Time Stop Time Status Last Admin Dose Admin Baclofen (Lioresal Tab) 10 mg TID PRN PO 03/13/16 18:00 04/12/16 17:59 Bupropion HCl (Wellbutrin-Sr Tab) 150 mg BID PO 03/13/16 21:00 04/12/16 20:59 03/15/16 08:01 150 MG Fluticasone Propionate (Flonase Nasal [place]) 2 sprays DAILY CURTIS 03/14/16 09:00 04/13/16 08:59 03/15/16 08:02 2 SPRAYS Meclizine HCl (Antivert Tab) 25 mg TID PRN PO 03/13/16 18:00 04/12/16 17:59 Topiramate (Topamax Tab) 50 mg BID PO 03/13/16 21:00 04/12/16 20:59 03/15/16 08:03 50 MG Albuterol (Ventolin Hfa Inhaler) 2 puffs QID INH 03/13/16 21:00 04/12/16 20:59 03/15/16 13:35 2 PUFFS Cyclobenzaprine HCl (Flexeril Tab) 5 mg TID PRN PO 03/13/16 18:00 04/12/16 17:59 03/14/16 16:58 5 MG Nicotine (Nicoderm Cq 21MG Patch) 1 patch QAM TD 03/14/16 09:00 04/13/16 08:59 03/15/16 08:03 1 PATCH Miscellaneous (Remove Nicoderm Patch) 1 ea HS N/A 03/13/16 21:00 04/12/16 20:59 03/14/16 21:18 1 EA Acetaminophen (Tylenol Tab) 650 mg Q4H PRN PO 03/13/16 18:30 04/12/16 18:29 Ondansetron HCl 4 mg 4 mg Q6H PRN IV 03/13/16 18:30 04/12/16 18:29 Pantoprazole Sodium/Syringe (Protonix Inj/ Syringe) 10 ml @ 5 mls/min DAILY@09,21 IV 03/13/16 21:00 03/15/16 23:59 03/15/16 08:01 5 MLS/MIN Miscellaneous Information (Pharmacy Consult) 1 ea UD PRN N/A 03/13/16 18:48 04/12/16 18:47 Al Hydroxide/Mg Hydroxide 30 ml 30 ml Q6H PRN PO 03/13/16 18:30 04/12/16 18:29 03/13/16 21:51 30 ML Dextrose/Sodium Chloride (D5W And Nss) 1,000 ml @ 75 mls/hr [id number] IV 03/13/16 18:30 04/12/16 18:29 03/15/16 06:38 75 MLS/HR Morphine Sulfate (MoRPHine SULFATE INJ) 4 mg Q4 PRN IV 03/13/16 18:45 03/27/16 18:44 03/14/16 02:15 4 MG Ioversol 111 ml 111 ml UD PRN IV 03/13/16 18:45 03/17/16 18:44 Ceftriaxone Sodium/Dextrose (Rocephin Inj/D5 50ml) 70 ml @ 100 mls/hr Q24H IV 03/13/16 21:00 03/22/16 23:59 03/14/16 20:26 100 MLS/HR Sucralfate (Carafate Susp) 1 gm QID PO 03/14/16 09:00 04/13/16 08:59 03/15/16 16:45 1 GM Pantoprazole Sodium (Protonix Tab) 40 mg BID PO 03/16/16 09:00 04/15/16 08:59 Objective Vital Signs Date Time Temp Pulse Resp B/P Pulse Ox O2 Delivery O2 Flow Rate FiO2 03/15/16 15:16 37.0 81 18 115/67 97 Room Air 03/15/16 07:59 113/65 03/15/16 07:43 36.7 69 16 75/46 97 Room Air 68/45 03/15/16 07:30 Room Air 2.0 03/15/16 02:00 Room Air 03/15/16 00:14 36.9 74 18 137/84 96 Room Air 03/14/16 20:00 Room Air Physical Exam General Appearance: WD/WN, no apparent distress Eyes: normal inspection, EOMI, sclerae normal ENT: normal ENT inspection, pharynx normal Neck: supple, thyroid normal, no carotid bruits, trachea midline Respiratory/Chest: chest non-tender, lungs clear, normal breath sounds, no respiratory distress Cardiovascular: regular rate, rhythm, no gallop, no murmur Abdomen: normal bowel sounds, non tender, soft, no organomegaly Extremities: non-tender, no calf tenderness, normal capillary refill Neurologic/Psychiatric: alert, oriented x 3 Skin: normal color, warm/dry, no rash Lymphatic: no adenopathy Laboratory Results Last 24 Hours Test 03/15/16 05:08 White Blood Count 11.50 K/uL Red Blood Count 4.50 M/uL Hemoglobin 13.1 g/dL Hematocrit 39.5 % Mean Corpuscular Volume 87.8 fL Mean Corpuscular Hemoglobin 29.1 pg Mean Corpuscular Hemoglobin Concent 33.2 g/dl Platelet Count 448 K/uL Mean Platelet Volume 12.0 fL Neutrophils (%) (Auto) 50.7 % Lymphocytes (%) (Auto) 33.8 % Monocytes (%) (Auto) 9.9 % Eosinophils (%) (Auto) 4.5 % Basophils (%) (Auto) 0.9 % Neutrophils # (Auto) 5.83 K/uL Lymphocytes # (Auto) 3.89 K/uL Monocytes # (Auto) 1.14 K/uL Eosinophils # (Auto) 0.52 K/uL Basophils # (Auto) 0.10 K/uL RDW Standard Deviation 45.1 fL RDW Coefficient of Variation 14.0 % Immature Granulocyte % (Auto) 0.2 % Immature Granulocyte # (Auto) 0.02 K/uL Sodium Level 144 mmol/L Potassium Level 3.9 mmol/L Chloride Level 114 mmol/L Carbon Dioxide Level 19 mmol/L Anion Gap 11.0 mmol/L Blood Urea Nitrogen 6 mg/dl Creatinine 0.80 mg/dl Est Creatinine Clear Calc Drug Dose 76.2 ml/min Estimated GFR () 102.5 Estimated GFR (Non- 88.4 BUN/Creatinine Ratio 7.9 Random Glucose 90 mg/dl Calcium Level 8.4 mg/dl Magnesium Level 2.1 mg/dl Assessment and Plan 46 yo female s/p splenectomy with acute onset of GI symptoms, now somewhat better, with positive blood cultures for gram positive cocci. Not clear whether contaminant or true pathogen. Given significant risk because of splenectomy and aortic valve disease, to give 10 days IV ceftriaxone.
[2016-03-15] MEDS: CEFTRIAXONE SOD INJ 2,000 MG in DEXTROSE 5% 50ML 50 ML IV SCH (20:41)
[2016-03-15 23:52] VITALS: BP 112/70; PULSE 73; TEMP 36.8; O2SAT 98
[2016-03-16] MEDS: MoRPHine SULFATE 4 MG/ML 1 ML CARP\\VIAL IV PRN (00:59)
[2016-03-16 06:49] VITALS: BP 96/63; PULSE 69; TEMP 36.5; O2SAT 98
[2016-03-16 07:35] LABS: BASO % 0.8 %; COMPLETE YES; EOS % 3.5 %; HEMATOCRIT 37.3 % (37-47); IG% 0.3 %; LYMPH % 32.2 %; LYMPH ABS # 3.99 K/uL (1.2-3.4); MEAN CELL VOLUME 85.9 fL (80-100); MEAN CORPUSCULAR HEMOGLOBIN 28.8 pg (25-34); MEAN CORPUSCULAR HGB CONC 33.5 g/dl (32-36); MEAN PLATELET VOLUME 11.8 fL (7.4-10.4); MONO % 10.7 %; NEUT % 52.5 %; PLATELET COUNT 435 K/uL (130-400); RED BLOOD COUNT 4.34 M/uL (4.2-5.4); WHITE BLOOD COUNT 12.39 K/uL (4.8-10.8)
[2016-03-16 08:06] LABS: BUN/CREATININE RATIO 9.5 (10-20); CALCIUM 8.5 mg/dl (8.5-10.1); CREATININE 0.82 mg/dl (0.60-1.20); MAGNESIUM 2.1 mg/dl (1.8-2.4); POTASSIUM 3.5 mmol/L (3.5-5.1)
[2016-03-16] MEDS: ALBUTEROL HFA 8 GM INHALER INH SCH ×3 (08:11→17:00)
[2016-03-16] MEDS: SUCRALFATE 1 GM/10 ML UDC PO SCH ×3 (08:12→17:15)
[2016-03-16] MEDS: FLUTICASONE PROPIONATE NA SPR 16 GM BTL NAE SCH (08:12)
[2016-03-16] MEDS: BuPROPion SR 150 MG TABCR PO SCH (08:13)
[2016-03-16] MEDS: TOPIRAMATE 25 MG TAB PO SCH (08:15)
[2016-03-16] MEDS: D5W AND NSS 1,000 ML IV SCH (08:17)
[2016-03-16] MEDS: NICOTINE 21 MG/24 HR TDSY TD SCH (08:17)
[2016-03-16] MEDS ORDERED: PANTOprazole SOD 40 MG TAB PO SCH (09:00)
[2016-03-16 14:19] VITALS: BP 109/75; PULSE 81; TEMP 36.7; O2SAT 99
[2016-03-16 16:20] VITALS: BP 109/75; PULSE 81; TEMP 36.7; O2SAT 99
--- NOTE | 2016-03-16 16:38 | Infectious Disease Progress Nt ---
Progress Note Date of Service Mar 16, 2016. Subjective Pt evaluation today including: conversation w/ patient, physical exam, chart review, lab review, review of studies, conversation w/ clinical operations consultant, review of inpatient medication list offers no new complaints today. Remains afebrile. All Other Systems: Reviewed and Negative Medications Current Inpatient Medications Medications (Trade) Dose Ordered Sig/Karlo Route Start Time Stop Time Status Last Admin Dose Admin Baclofen (Lioresal Tab) 10 mg TID PRN PO 03/13/16 18:00 04/12/16 17:59 03/15/16 20:42 10 MG Bupropion HCl (Wellbutrin-Sr Tab) 150 mg BID PO 03/13/16 21:00 04/12/16 20:59 03/16/16 08:13 150 MG Fluticasone Propionate (Flonase Nasal [place]) 2 sprays DAILY CURTIS 03/14/16 09:00 04/13/16 08:59 03/16/16 08:12 2 SPRAYS Meclizine HCl (Antivert Tab) 25 mg TID PRN PO 03/13/16 18:00 04/12/16 17:59 Topiramate (Topamax Tab) 50 mg BID PO 03/13/16 21:00 04/12/16 20:59 03/16/16 08:15 50 MG Albuterol (Ventolin Hfa Inhaler) 2 puffs QID INH 03/13/16 21:00 04/12/16 20:59 03/16/16 08:11 2 PUFFS Cyclobenzaprine HCl (Flexeril Tab) 5 mg TID PRN PO 03/13/16 18:00 04/12/16 17:59 03/14/16 16:58 5 MG Nicotine (Nicoderm Cq 21MG Patch) 1 patch QAM TD 03/14/16 09:00 04/13/16 08:59 03/16/16 08:17 1 PATCH Miscellaneous (Remove Nicoderm Patch) 1 ea HS N/A 03/13/16 21:00 04/12/16 20:59 03/15/16 20:46 1 EA Acetaminophen (Tylenol Tab) 650 mg Q4H PRN PO 03/13/16 18:30 04/12/16 18:29 Ondansetron HCl (Zofran Inj) 4 mg Q6H PRN IV 03/13/16 18:30 04/12/16 18:29 Miscellaneous Information (Pharmacy Consult) 1 ea UD PRN N/A 03/13/16 18:48 04/12/16 18:47 Al Hydroxide/Mg Hydroxide 30 ml 30 ml Q6H PRN PO 03/13/16 18:30 04/12/16 18:29 03/13/16 21:51 30 ML Dextrose/Sodium Chloride (D5W And Nss) 1,000 ml @ 75 mls/hr [id number] IV 03/13/16 18:30 04/12/16 18:29 03/16/16 08:17 75 MLS/HR Morphine Sulfate (MoRPHine SULFATE INJ) 4 mg Q4 PRN IV 03/13/16 18:45 03/27/16 18:44 03/16/16 00:59 4 MG Ioversol 111 ml 111 ml UD PRN IV 03/13/16 18:45 03/17/16 18:44 Ceftriaxone Sodium/Dextrose (Rocephin Inj/D5 50ml) 70 ml @ 100 mls/hr Q24H IV 03/13/16 21:00 03/22/16 23:59 03/15/16 20:41 100 MLS/HR Sucralfate (Carafate Susp) 1 gm QID PO 03/14/16 09:00 04/13/16 08:59 03/16/16 13:08 1 GM Pantoprazole Sodium (Protonix Tab) 40 mg BID PO 03/16/16 09:00 04/15/16 08:59 03/16/16 08:14 40 MG Objective Vital Signs Date Time Temp Pulse Resp B/P Pulse Ox O2 Delivery O2 Flow Rate FiO2 03/16/16 16:20 36.7 81 18 99 Room Air 03/16/16 14:19 36.7 81 18 109/75 99 Room Air 03/16/16 14:08 Room Air 03/16/16 06:49 36.5 69 20 96/63 98 Room Air 03/16/16 00:00 Room Air 03/15/16 23:52 36.8 73 18 112/70 98 Room Air Physical Exam General Appearance: WD/WN, no apparent distress Eyes: normal inspection, EOMI, sclerae normal ENT: normal ENT inspection, pharynx normal Neck: supple, no adenopathy, trachea midline Respiratory/Chest: chest non-tender, lungs clear, normal breath sounds, no respiratory distress Cardiovascular: regular rate, rhythm, no gallop, no murmur Abdomen: normal bowel sounds, non tender, soft, no organomegaly Extremities: non-tender, no calf tenderness Neurologic/Psychiatric: alert, oriented x 3 Skin: normal color, warm/dry, no rash Lymphatic: no adenopathy Laboratory Results Last 24 Hours Test 03/16/16 07:14 White Blood Count 12.39 K/uL Red Blood Count 4.34 M/uL Hemoglobin 12.5 g/dL Hematocrit 37.3 % Mean Corpuscular Volume 85.9 fL Mean Corpuscular Hemoglobin 28.8 pg Mean Corpuscular Hemoglobin Concent 33.5 g/dl Platelet Count 435 K/uL Mean Platelet Volume 11.8 fL Neutrophils (%) (Auto) 52.5 % Lymphocytes (%) (Auto) 32.2 % Monocytes (%) (Auto) 10.7 % Eosinophils (%) (Auto) 3.5 % Basophils (%) (Auto) 0.8 % Neutrophils # (Auto) 6.51 K/uL Lymphocytes # (Auto) 3.99 K/uL Monocytes # (Auto) 1.32 K/uL Eosinophils # (Auto) 0.43 K/uL Basophils # (Auto) 0.10 K/uL RDW Standard Deviation 43.2 fL RDW Coefficient of Variation 13.8 % Immature Granulocyte % (Auto) 0.3 % Immature Granulocyte # (Auto) 0.04 K/uL Sodium Level 142 mmol/L Potassium Level 3.5 mmol/L Chloride Level 112 mmol/L Carbon Dioxide Level 19 mmol/L Anion Gap 11.0 mmol/L Blood Urea Nitrogen 8 mg/dl Creatinine 0.82 mg/dl Est Creatinine Clear Calc Drug Dose 74.3 ml/min Estimated GFR () 99.5 Estimated GFR (Non- 85.8 BUN/Creatinine Ratio 9.5 Random Glucose 91 mg/dl Calcium Level 8.5 mg/dl Magnesium Level 2.1 mg/dl Assessment and Plan 46 yo female s/p splenectomy with acute onset of GI symptoms, now somewhat better, with positive blood cultures for gram positive cocci. Not clear whether contaminant or true pathogen. No obvious evidence of endocarditis on transthoracic echocardiogram. Given rapid clinical improvement, we would recommend transition to oral antibiotics with cephalexin 500 milligrams q.i.d. to complete 2 weeks of therapy. Discussed with hospitalist service.
--- NOTE | 2016-03-16 16:50 | Progress Note ---
Medicine Progress Note Date & Time of Visit: Mar 16, 2016 at 16:44. Subjective states she feels much better overall no fever/chills, weakness, nausea denies abdominal pain states she is ready and would like to go home today Objective Last 8 Hrs Date Time Temp Pulse Resp B/P Pulse Ox O2 Delivery O2 Flow Rate FiO2 03/16/16 16:20 36.7 81 18 99 Room Air 03/16/16 14:19 36.7 81 18 109/75 99 Room Air 03/16/16 14:08 Room Air Physical Exam: General- oriented x 3, not in distress, speaks in sentences with no effort Eyes- anicteric Neck- no JVD Lungs- clear to auscultation b/l, no rales/wheeze Heart- normal rate, regular rhythm; no murmurs Abdomen- normal bowel sounds, soft, nontender Extremities- no pretibial edema, no calf tenderness; peripheral pulses intact Neuro- alert, oriented x 3; no gross focal deficits Skin- warm & dry Laboratory Results: Last 24 Hours Test 03/16/16 07:14 White Blood Count 12.39 K/uL Red Blood Count 4.34 M/uL Hemoglobin 12.5 g/dL Hematocrit 37.3 % Mean Corpuscular Volume 85.9 fL Mean Corpuscular Hemoglobin 28.8 pg Mean Corpuscular Hemoglobin Concent 33.5 g/dl Platelet Count 435 K/uL Mean Platelet Volume 11.8 fL Neutrophils (%) (Auto) 52.5 % Lymphocytes (%) (Auto) 32.2 % Monocytes (%) (Auto) 10.7 % Eosinophils (%) (Auto) 3.5 % Basophils (%) (Auto) 0.8 % Neutrophils # (Auto) 6.51 K/uL Lymphocytes # (Auto) 3.99 K/uL Monocytes # (Auto) 1.32 K/uL Eosinophils # (Auto) 0.43 K/uL Basophils # (Auto) 0.10 K/uL RDW Standard Deviation 43.2 fL RDW Coefficient of Variation 13.8 % Immature Granulocyte % (Auto) 0.3 % Immature Granulocyte # (Auto) 0.04 K/uL Sodium Level 142 mmol/L Potassium Level 3.5 mmol/L Chloride Level 112 mmol/L Carbon Dioxide Level 19 mmol/L Anion Gap 11.0 mmol/L Blood Urea Nitrogen 8 mg/dl Creatinine 0.82 mg/dl Est Creatinine Clear Calc Drug Dose 74.3 ml/min Estimated GFR () 99.5 Estimated GFR (Non- 85.8 BUN/Creatinine Ratio 9.5 Random Glucose 91 mg/dl Calcium Level 8.5 mg/dl Magnesium Level 2.1 mg/dl Assessment & Plan BACTEREMIA in setting of ASPLENIA - afebrile; no tachycardia; no hypotension; lactic acid WNL Blood culture 03/12/16 alpha strep not S. pneumo/ enterococcus, no sensitivity to follow -- repeat blood cultures 03/13/15: no growth urine culture: negative -- transthoracic echo no signs of endocarditis -- remains afebrile, WBC improved - received 3 days of Ceftriaxone IV -- ID Dr. Rodriges consulted- recommend Cephalexin 500mg QID x 7 more days ff up with PCP in 3-5 days EPIGASTRIC ABDOMINAL PAIN Possibly due to gastritis, underlying PUD CT Abdomen: on 03/12/16- " 1. No bowel wall thickening or obstruction. 2. Normal appendix. 3. Prior splenectomy. There are few small areas of splenic tissue scattered throughout the left upper quadrant consistent with splenosis. 4. Small soft tissue nodules inferior to pylorus may represent small lymph\\ nodes. These measure up to 8 mm in size. These are of uncertain clinical significance. 5. 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 The bilateral iliac arteries appear hypoplastic." RUQ US on - "1. Normal gallbladder. No gallstones. 2. A 5 mm hyperechoic lesion within the upper pole of the right kidney. This could represent a focal area of scarring versus a small angiomyolipoma." LFT's and lipase within normal limits evaluated by GI- Dr. Coulter IV Protonix BID, transitioned to BID PPI x 4-6 weeks then daily PPI Sucralfate x 4 days and Maalox PRN patient advised dietary modification possible outpatient EGD if persistent\\ ASTHMA Not in acute exacerbation Continue home inhaler DISPOSITION d/c home today ff up with Dr. Branham in 3-5 days Current Inpatient Medications: Current Inpatient Medications Medications (Trade) Dose Ordered Sig/Karlo Route Start Time Stop Time Status Last Admin Dose Admin Baclofen (Lioresal Tab) 10 mg TID PRN PO 03/13/16 18:00 04/12/16 17:59 03/15/16 20:42 10 MG Bupropion HCl (Wellbutrin-Sr Tab) 150 mg BID PO 03/13/16 21:00 04/12/16 20:59 03/16/16 08:13 150 MG Fluticasone Propionate (Flonase Nasal [place]) 2 sprays DAILY CURTIS 03/14/16 09:00 04/13/16 08:59 03/16/16 08:12 2 SPRAYS Meclizine HCl (Antivert Tab) 25 mg TID PRN PO 03/13/16 18:00 04/12/16 17:59 Topiramate (Topamax Tab) 50 mg BID PO 03/13/16 21:00 04/12/16 20:59 03/16/16 08:15 50 MG Albuterol (Ventolin Hfa Inhaler) 2 puffs QID INH 03/13/16 21:00 04/12/16 20:59 03/16/16 08:11 2 PUFFS Cyclobenzaprine HCl (Flexeril Tab) 5 mg TID PRN PO 03/13/16 18:00 04/12/16 17:59 03/14/16 16:58 5 MG Nicotine (Nicoderm Cq 21MG Patch) 1 patch QAM TD 03/14/16 09:00 04/13/16 08:59 03/16/16 08:17 1 PATCH Miscellaneous (Remove Nicoderm Patch) 1 ea HS N/A 03/13/16 21:00 04/12/16 20:59 03/15/16 20:46 1 EA Acetaminophen (Tylenol Tab) 650 mg Q4H PRN PO 03/13/16 18:30 04/12/16 18:29 Ondansetron HCl (Zofran Inj) 4 mg Q6H PRN IV 03/13/16 18:30 04/12/16 18:29 Miscellaneous Information (Pharmacy Consult) 1 ea UD PRN N/A 03/13/16 18:48 04/12/16 18:47 Al Hydroxide/Mg Hydroxide 30 ml 30 ml Q6H PRN PO 03/13/16 18:30 04/12/16 18:29 03/13/16 21:51 30 ML Dextrose/Sodium Chloride (D5W And Nss) 1,000 ml @ 75 mls/hr [id number] IV 03/13/16 18:30 04/12/16 18:29 03/16/16 08:17 75 MLS/HR Morphine Sulfate (MoRPHine SULFATE INJ) 4 mg Q4 PRN IV 03/13/16 18:45 03/27/16 18:44 03/16/16 00:59 4 MG Ioversol 111 ml 111 ml UD PRN IV 03/13/16 18:45 03/17/16 18:44 Ceftriaxone Sodium/Dextrose (Rocephin Inj/D5 50ml) 70 ml @ 100 mls/hr Q24H IV 03/13/16 21:00 03/22/16 23:59 03/15/16 20:41 100 MLS/HR Sucralfate (Carafate Susp) 1 gm QID PO 03/14/16 09:00 04/13/16 08:59 03/16/16 13:08 1 GM Pantoprazole Sodium (Protonix Tab) 40 mg BID PO 03/16/16 09:00 04/15/16 08:59 03/16/16 08:14 40 MG
[2016-03-16] MEDS ORDERED: CEPH500C PO (16:58)
[2016-03-16] MEDS ORDERED: MLXC PO (16:58)
[2016-03-16] MEDS ORDERED: PRT40 PO (16:58)
[2016-03-16] MEDS ORDERED: CRFUDL PO (16:58)
--- NOTE | 2016-03-16 17:01 | Discharge Instructions ---
Discharge Instructions Admission Reason for Admission: Bacteremia Discharge Discharge Diagnosis / Problem: Bloodstream Infection Discharge Goals Goal(s): Diagnostic testing, Therapeutic intervention Activity Recommendations Activity Limitations: as noted below (no heavy exertion until re-evaluated by Primary Care Physician) . Instructions / Follow-Up Instructions / Follow-Up NO ASPIRIN, NSAIDS- IBUPROFEN, ETC. AVOID CAFFEINE, CARBONATED DRINKS, ALCOHOL, SMOKING, ACIDIC OR SPICY FOOD. CALL PRIMARY CARE PHYSICIAN IF WITH RECURRENCE OF SYMPTOMS, FEVER/CHILLS, WEAKNESS, NAUSEA, VOMITING, ABDOMINAL PAIN, BLACK OR BLOOD IN THE STOOLS. FOLLOW UP WITH DR. LARA ON Friday03/22/16 AT 11:10AM. Current Hospital Diet Patient's current hospital diet: Regular Diet Discharge Diet Recommended Diet: Low Fiber Diet Pending Studies Studies pending at discharge: no Medical Emergencies . Who to Call and When: Medical Emergencies: If at any time you feel your situation is an emergency, please call 911 immediately. . Non-Emergent Contact Non-Emergency issues call your: Primary Care Provider Call Non-Emergent contact if: you have a fever, your pain is not controlled . Past History Medical & Surgical History: (1) Asplenia (2) Left lumbar radiculopathy (3) Pneumonia (4) Migraines (5) Hyperlipidemia (6) Bronchitis (7) Aortic valve insufficiency (8) Bipolar disorder (9) Asthma (10) History of dental surgery (11) H/O splenectomy . "Provider Documentation" section prepared by Viraj Sherman. VTE Core Measure Inpt VTE Proph given/why not?: SCD's
--- NOTE | 2016-03-16 17:14 | Discharge Summary ---
Discharge Summary Admission Date: Mar 13, 2016 at 18:20 Discharge Date: Mar 16, 2016 Discharge Disposition: Home Principal Diagnosis: BACTEREMIA in setting of ASPLENIA Secondary Diagnoses/Problems: Please refer to hospital course below. Consultations: ID Dr. Rodriges, GI Dr. Coulter Pending Studies/Follow-Up: Please refer to hospital course below. Medication Reconciliation New Medications: Aluminum/Magnesium/Simeth (Mag-Al 200-200 mg/5Ml) 30 Ml Susp 30 ML PO Q6H PRN for Dyspepsia, #1 BTL 2 Refills Pantoprazole (Pantoprazole Sodium) 40 Mg Tab 40 MG PO UD for 30 Days, #60 TAB 2 Refills take 1 tab po BID x 4 weeks, then 1 tab po daily (take 30 minutes before meal) Sucralfate (Sucralfate) 1 Gm/10 Ml Susp 1 GM PO QID for 4 Days, #160 ML 1 Refill Changed Medications: Cephalexin Monohydrate (Keflex) 500 Mg Cap 500 MG PO QID for 7 Days, #28 CAP (Changed from: TID; 21) Continued Medications: Albuterol Sulfate (Proair Respiclick) 108 Mcg/Act Aer 2 PUFFS INH QID Baclofen (Lioresal) 10 Mg Tab 1 TAB PO TID PRN for Muscle Spasms for 30 Days, #90 TAB 2 Refills Bupropion Hcl (Wellbutrin Sr) 150 Mg Tab 150 MG PO BID, TAB Cyclobenzaprine (Bulk) (Cyclobenzaprine) 1 Pow Pow 5 MG PO TID PRN for Muscle Spasms Epinephrine (Epipen 2-Jalen) 0.3 Mg Inj 0.3 MG IM UD PRN for ALLERGIC REACTION ONE INJECTION DIRECTED. Fluticasone Propionate (Nasal) (Flonase Allergy Relief) 50 Mcg/Act Spr 2 SPRAYS CURTIS DAILY Hydrocodone/Acetaminophen 5MG/325MG ([place] 5MG/325MG) Tab 1-2 TABLET PO Q4H PRN for Pain, #14 TAB For Initial Treatment Meclizine HCl (Meclizine HCl) 25 Mg Tab 25 MG PO TID PRN for Dizziness or Vertigo Topiramate (Topamax) 50 Mg Tab 50 MG PO BID Discontinued Medications: Meloxicam (Mobic) 7.5 Mg Tab 7.5 MG PO BID, TAB Pantoprazole (Protonix) 40 Mg Tab 40 MG PO DAILY for 14 Days, #14 TAB Admission Information HPI (per Admitting provider): This is a 46 year old female with PMH of splenectomy secondary to trauma, asthma , AV insufficiency, migraine, and other problems listed below who presents to the ED for positive blood culture. Patient seen in ER yesterday for abdominal pain, nausea, vomiting, diarrhea. Blood culture grew gram positive cocci so she was called to return to ER. Pt states abdominal pain started 2 nights ago in epigastrium with radiation to her back- thought it was reflux, so tried taking Tums without relief. Yesterday had persistent pain and developed 3 episodes vomiting and multiple episodes diarrhea. She came to the ER yesterday evening and was treated with IVF, Zofran, and Protonix. She had a CT abdomen/pelvis without any acute findings. Gallbladder ultrasound showed no acute pathology. Her WBC was elevated but noted to be chronic. She was sent home with Keflex, [place], and Protonix. Abdominal pain was improved when she went home (after morphine in ER) but worsened again when she tried to eat. Currently pain is rated 7/10. She still feels mildly "queasy" but no further vomiting. Not eating today. No further diarrhea today. No hematemesis, coffee ground emesis, hematochezia, melena. Has chronic cough attributed to asthma- no change from baseline. Chronic low back pain- no acute change. No fevers, chills, dizziness, weakness, headache, URI symptoms, body aches, chest pain, SOB, dysuria, frequency, significant wounds. No recent travel, hospitalizations, or sick contacts. Physical Exam (per Admitting): General Appearance: WD/WN, no apparent distress, + pertinent finding Head: normocephalic, atraumatic Eyes: normal inspection, PERRL, EOMI ENT: hearing grossly normal, pharynx normal Neck: supple, trachea midline Respiratory/Chest: lungs clear, normal breath sounds, no respiratory distress Cardiovascular: regular rate, rhythm, no murmur, normal peripheral pulses Abdomen/GI: normal bowel sounds, soft, + pertinent finding Extremities/Musculoskelatal: normal inspection, no calf tenderness, normal capillary refill, no pedal edema Neurologic/Psych: alert, normal mood/affect, oriented x 3, + pertinent finding Skin: normal color, warm/dry, + pertinent finding Hospital Course BACTEREMIA in setting of ASPLENIA - afebrile; no tachycardia; no hypotension; lactic acid WNL Blood culture 03/12/16 alpha strep not S. pneumo/ enterococcus, no sensitivity to follow -- repeat blood cultures 03/13/15: no growth urine culture: negative -- transthoracic echo no signs of endocarditis -- remains afebrile, WBC improved - received 3 days of Ceftriaxone IV -- ID Dr. Rodriges consulted- recommend Cephalexin 500mg QID x 7 more days ff up with PCP in 3-5 days EPIGASTRIC ABDOMINAL PAIN Possibly due to gastritis, underlying PUD CT Abdomen: on 03/12/16- " 1. No bowel wall thickening or obstruction. 2. Normal appendix. 3. Prior splenectomy. There are few small areas of splenic tissue scattered throughout the left upper quadrant consistent with splenosis. 4. Small soft tissue nodules inferior to pylorus may represent small lymph\\ nodes. These measure up to 8 mm in size. These are of uncertain clinical significance. 5. 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 The bilateral iliac arteries appear hypoplastic." RUQ US on - "1. Normal gallbladder. No gallstones. 2. A 5 mm hyperechoic lesion within the upper pole of the right kidney. This could represent a focal area of scarring versus a small angiomyolipoma." LFT's and lipase within normal limits evaluated by GI- Dr. Coulter IV Protonix BID, transitioned to BID PPI x 4-6 weeks then daily PPI Sucralfate x 4 days and Maalox PRN patient advised dietary modification possible outpatient EGD if persistent\\ ASTHMA Not in acute exacerbation Continue home inhaler DISPOSITION d/c home today ff up with Dr. Lara in 3-5 days Total time spent on discharge = 30 minutes This includes examination of the patient, discharge planning, medication reconciliation, and communication with other providers. Discharge Instructions Discharge Instructions Admission Reason for Admission: Bacteremia Discharge Discharge Diagnosis / Problem: Bloodstream Infection Discharge Goals Goal(s): Diagnostic testing, Therapeutic intervention Activity Recommendations Activity Limitations: as noted below (no heavy exertion until re-evaluated by Primary Care Physician) . Instructions / Follow-Up Instructions / Follow-Up NO ASPIRIN, NSAIDS- IBUPROFEN, ETC. AVOID CAFFEINE, CARBONATED DRINKS, ALCOHOL, SMOKING, ACIDIC OR SPICY FOOD. CALL PRIMARY CARE PHYSICIAN IF WITH RECURRENCE OF SYMPTOMS, FEVER/CHILLS, WEAKNESS, NAUSEA, VOMITING, ABDOMINAL PAIN, BLACK OR BLOOD IN THE STOOLS. FOLLOW UP WITH DR. LARA ON Friday03/22/16 AT 11:10AM. Current Hospital Diet Patient's current hospital diet: Regular Diet Discharge Diet Recommended Diet: Low Fiber Diet Pending Studies Studies pending at discharge: no Medical Emergencies . Who to Call and When: Medical Emergencies: If at any time you feel your situation is an emergency, please call 911 immediately. . Non-Emergent Contact Non-Emergency issues call your: Primary Care Provider Call Non-Emergent contact if: you have a fever, your pain is not controlled . Past History Medical & Surgical History: (1) Asplenia (2) Left lumbar radiculopathy (3) Pneumonia (4) Migraines (5) Hyperlipidemia (6) Bronchitis (7) Aortic valve insufficiency (8) Bipolar disorder (9) Asthma (10) History of dental surgery (11) H/O splenectomy . "Provider Documentation" section prepared by Viraj Sherman. VTE Core Measure Inpt VTE Proph given/why not?: SCD's
[2016-09-06] MEDS ORDERED: EPP3/2 IM (04:39)
[2016-09-06] MEDS ORDERED: TPM/50 PO (16:55)
[2016-09-06] MEDS ORDERED: BACL1TAB PO (17:46)
[2016-09-06] MEDS ORDERED: ALBU18002 INH (17:46)
[2016-09-06] MEDS ORDERED: BUPR150T7 PO (20:35)
[2016-10-17] MEDS ORDERED: OXYC-57 PO (10:37)
== END 2016-03-16 18:04 | disposition home or self-care (01) | DRG 872 ==
LOC: ENRESERVDT → ENRESERVTM → C.EDB 15:40 → C.MED 18:20 → C.MS2W 03-14 20:04
PROVIDERS: ADMIT Internal Medicine; ATTEND Internal Medicine
DX: R78.81 Bacteremia (principal); K29.70 Gastritis, unspecified, without bleeding; F31.9 Bipolar disorder, unspecified; F17.210 Nicotine dependence, cigarettes, uncomplicated; D72.829 Elevated white blood cell count, unspecified; J45.909 Unspecified asthma, uncomplicated; E78.5 Hyperlipidemia, unspecified; I35.1 Nonrheumatic aortic (valve) insufficiency; Z83.3 Family history of diabetes mellitus; Z83.79 Family history of other diseases of the digestive system; Z82.49 Family history of ischemic heart disease and other diseases of the circulatory system; Z83.6 Family history of other diseases of the respiratory system; Z82.3 Family history of stroke; Z90.81 Acquired absence of spleen

== ENCOUNTER 2016-04-30 18:03 | Emergency (ER) | payer OTHER ==
[~2016-04-30] VITALS: Ht 154.9 cm; Wt 63.9 kg
[~2016-04-30 18:03] MED LIST changes: +CRFUDL PO; +CYCL1POW PO; +FLUT0.15 NAE; +MLXC PO; -PANT40TA PO; +PRT40 PO
[2016-04-30 18:16] VITALS: TEMP 37.2; Ht 154.9 cm; Wt 63.9 kg
[2016-04-30] MEDS ORDERED: SODIUM CHLORIDE 0.9% 1000ML 1,000 ML IV STA (20:18)
[2016-04-30] MEDS ORDERED: PENICILLIN V POTASSIUM 250 MG TAB PO ONE (20:30)
--- NOTE | 2016-04-30 20:52 | DIAGNOSTIC IMAGING REPORT ---
CHEST ONE VIEW PORTABLE CLINICAL HISTORY: Cough. COMPARISON STUDY: Chest radiograph March 12, 2016. FINDINGS: Lung volumes are normal. No consolidation is identified. There is no evidence of pulmonary edema. Cardiac size is normal. Mediastinal contours are normal. IMPRESSION: No acute cardiopulmonary findings. Electronically signed by: Abrahan Reece M.D. 04/30/2016 8:50 PM Dictated Date/Time: 04/30/2016 8:50 PM
[2016-04-30 21:14] LABS: BASO % 0.5 %; BASO ABS # 0.09 K/uL (0-0.2); COMPLETE YES; EOS % 0.9 %; HEMATOCRIT 37.8 % (37-47); IG% 0.3 %; LYMPH % 29.3 %; LYMPH ABS # 4.92 K/uL (1.2-3.4); MEAN CELL VOLUME 83.3 fL (80-100); MEAN CORPUSCULAR HEMOGLOBIN 28.6 pg (25-34); MEAN CORPUSCULAR HGB CONC 34.4 g/dl (32-36); MEAN PLATELET VOLUME 10.2 fL (7.4-10.4); MONO % 4.8 %; NEUT % 64.2 %; PLATELET COUNT 616 K/uL (130-400); RED BLOOD COUNT 4.54 M/uL (4.2-5.4); WHITE BLOOD COUNT 16.81 K/uL (4.8-10.8)
[2016-04-30 21:34] LABS: BUN/CREATININE RATIO 10.3 (10-20); CALCIUM 9.1 mg/dl (8.5-10.1); CREATININE 0.64 mg/dl (0.60-1.20); POTASSIUM 4.1 mmol/L (3.5-5.1)
[2016-04-30 22:32] LABS: VEN BLD GAS O2 SATURATION 77.2 %; VEN BLOOD GAS BASE EXCESS -5.1 mmol/L
[2016-04-30] MEDS ORDERED: CEFDINIR 250 MG/5 ML 60 ML PO STA ×2 (23:26→23:38)
[2016-04-30] MEDS ORDERED: LEVOFLOXACIN 250 MG TAB PO ONE (23:30)
[2016-04-30] MEDS ORDERED: LEVO1TAB35 PO (23:31)
[2016-04-30] MEDS ORDERED: CEFD1CAP14 PO (23:31)
[2016-04-30 23:37] VITALS: BP 107/77; PULSE 84; O2SAT 97
--- NOTE | 2016-05-01 02:20 | EMERGENCY ROOM VISIT NOTE ---
History Report prepared by Trupti: Raul Ruiz Under the Supervision of: Dr. Mik Gill D.O. First contact with patient: 20:03 Chief Complaint: ILLNESS Stated Complaint: HEADACHE, COUGH, SORE CHEST, CLOGGED EAR/PAIN History of Present Illness The patient is a 46 year old female who presents to the Emergency Room with complaints of persistent pain in the right ear that began four days prior to arrival. She describes the pain in her ear as a "pressure." She is unable to hear out of her right ear as well which is been present for the same time period. The patient states that her symptoms began with a sore throat, cough, and upper respiratory congestion about one week ago. The cough is non- producing. She has also been experiencing fevers, which have been breaking with Tylenol. The patient was recently hospitalized due to a STAPH infection in her blood. She does have a history of splenectomy, due to a rupture from a traumatic fall. Patient denies headache, change in vision, chest pain, shortness of breath, nausea, vomiting, diarrhea, and pain with urination. Source of History: patient Onset: 4 days [employer] Position: ear (right) Quality: pressure Timing: other (Persistent) Associated Symptoms: + fevers, + sorethroat Note: Upper respiratory congestion Review of Systems See HPI for pertinent positives & negatives. A total of 10 systems reviewed and were otherwise negative. Past Medical & Surgical Medical Problems: (1) Aortic valve insufficiency (2) Asthma (3) Bacteremia (4) Bipolar disorder (5) Bronchitis (6) Hyperlipidemia (7) Migraines (8) Pneumonia Surgical Problems: (1) H/O splenectomy (2) History of dental surgery Family History Cancer Diabetes mellitus FHx: gallbladder disease Heart disease MOTHER Hypertension MOTHER Lung disease Seizures Stroke MOTHER Social History Smoking Status: Current Every Day Smoker Alcohol Use: none Drug Use: none Marital Status: Housing Status: lives with significant other Occupation Status: unemployed Current/Historical Medications Scheduled Albuterol Sulfate (Proair Respiclick), 2 PUFFS INH QID Bupropion Hcl (Wellbutrin Sr), 150 MG PO BID Cefdinir (Omnicef), 300 MG PO Q12H Fluticasone Propionate (Nasal) (Flonase Allergy Relief), 2 SPRAYS CURTIS DAILY Levofloxacin (Levaquin), 750 MG PO QD@08 Pantoprazole (Pantoprazole Sodium), 40 MG PO UD Topiramate (Topamax), 50 MG PO BID Scheduled PRN Aluminum/Magnesium/Simeth (Mag-Al 200-200 mg/5Ml), 30 ML PO Q6H PRN for Dyspepsia Baclofen (Lioresal), 1 TAB PO TID PRN for Muscle Spasms Cyclobenzaprine (Bulk) (Cyclobenzaprine), 5 MG PO TID PRN for Muscle Spasms Epinephrine (Epipen 2-Jlaen), 0.3 MG IM UD PRN for ALLERGIC REACTION Meclizine HCl (Meclizine HCl), 25 MG PO TID PRN for Dizziness or Vertigo Allergies Coded Allergies: Clindamycin (Verified Allergy, Mild, 03/13/16) Penicillins (Verified Allergy, Mild, 03/13/16) BEE STING (Verified Allergy, Unknown, hives/swelling, 03/13/16) Aspirin (Verified Adverse Reaction, Unknown, 03/13/16) Physical Exam Vital Signs Date Time Temp Pulse Resp B/P Pulse Ox O2 Delivery O2 Flow Rate FiO2 04/30/16 23:37 84 22 107/77 97 Room Air 04/30/16 22:23 85 18 105/71 98 Room Air 04/30/16 20:30 97 18 112/66 96 Room Air 04/30/16 18:16 37.2 93 18 110/70 96 Room Air Physical Exam GENERAL: Patient is sitting up in bed. well appearing, well nourished, no distress, non-toxic with a nonproductive cough. EAR EXAM: Right ear is erythematous with fluid posterior to the TM. Left TM is clear. EYE EXAM: normal conjunctiva, PERRL and EOM's grossly intact OROPHARYNX: no exudate, no erythema, lips, buccal mucosa, and tongue normal and mucous membranes are moist NECK: supple, no nuchal rigidity, no adenopathy, non-tender LUNGS: Clear to auscultation. Normal chest wall mechanics HEART: no murmurs, S1 normal and S2 normal ABDOMEN: abdomen soft, non-tender, normo-active bowel sounds, no masses, no rebound or guarding. BACK: Back is symmetrical on inspection and there is no deformity, no midline tenderness, no CVA tenderness. SKIN: no rashes and no bruising UPPER EXTREMITIES: upper extremities are grossly normal. LOWER EXTREMITIES: No pitting edema. NEURO EXAM: Normal sensorium, cranial nerves II-XII grossly intact, normal speech, no gross weakness of arms, no gross weakness of legs. Medical Decision & Procedures ER Provider Diagnostic Interpretation: Xray results per the radiologist and my interpretation. CHEST ONE VIEW PORTABLE CLINICAL HISTORY: Cough. COMPARISON STUDY: Chest radiograph March 12, 2016. FINDINGS: Lung volumes are normal. No consolidation is identified. There is no evidence of pulmonary edema. Cardiac size is normal. Mediastinal contours are normal. IMPRESSION: No acute cardiopulmonary findings. Electronically signed by: Abrahan Reece M.D. 04/30/2016 8:50 PM Dictated Date/Time: 04/30/2016 8:50 PM Laboratory Results 04/30/16 20:55 Red Blood Count 4.54, Mean Corpuscular Volume 83.3, Mean Corpuscular Hemoglobin 28.6, Mean Corpuscular Hemoglobin Concent 34.4, Mean Platelet Volume 10.2, Neutrophils (%) (Auto) 64.2, Lymphocytes (%) (Auto) 29.3, Monocytes (%) (Auto) 4.8, Eosinophils (%) (Auto) 0.9, Basophils (%) (Auto) 0.5, Neutrophils # (Auto) 10.80, Lymphocytes # (Auto) 4.92, Monocytes # (Auto) 0.80, Eosinophils # (Auto) 0.15, Basophils # (Auto) 0.09 04/30/16 20:55 Test 04/30/16 20:55 04/30/16 21:00 04/30/16 22:22 White Blood Count 16.81 K/uL (4.8-10.8) Red Blood Count 4.54 M/uL (4.2-5.4) Hemoglobin 13.0 g/dL (12.0-16.0) Hematocrit 37.8 % (37-47) Mean Corpuscular Volume 83.3 fL (80-100) Mean Corpuscular Hemoglobin 28.6 pg (25-34) Mean Corpuscular Hemoglobin Concent 34.4 g/dl (32-36) Platelet Count 616 K/uL (130-400) Mean Platelet Volume 10.2 fL (7.4-10.4) Neutrophils (%) (Auto) 64.2 % Lymphocytes (%) (Auto) 29.3 % Monocytes (%) (Auto) 4.8 % Eosinophils (%) (Auto) 0.9 % Basophils (%) (Auto) 0.5 % Neutrophils # (Auto) 10.80 K/uL (1.4-6.5) Lymphocytes # (Auto) 4.92 K/uL (1.2-3.4) Monocytes # (Auto) 0.80 K/uL (0.11-0.59) Eosinophils # (Auto) 0.15 K/uL (0-0.5) Basophils # (Auto) 0.09 K/uL (0-0.2) RDW Standard Deviation 39.9 fL (36.4-46.3) RDW Coefficient of Variation 13.2 % (11.5-14.5) Immature Granulocyte % (Auto) 0.3 % Immature Granulocyte # (Auto) 0.05 K/uL (0.00-0.02) Anion Gap 11.0 mmol/L (3-11) Est Creatinine Clear Calc Drug Dose 94.0 ml/min Estimated GFR () 124.0 Estimated GFR (Non- 107.0 BUN/Creatinine Ratio 10.3 (10-20) Calcium Level 9.1 mg/dl (8.5-10.1) Chemistry Specimen Hemolysis Influenza Type A Antigen Neg for Influ A (NEG) Influenza Type B Antigen Neg for Influ B (NEG) Venous Blood pH 7.37 (7.36-7.41) Venous Blood Partial Pressure CO2 34 mmHg (38.0-50.0) Venous Blood Partial Pressure O2 45 mmHg Venous Blood HCO3 19 mmol/L Venous Blood Oxygen Saturation 77.2 % Venous Blood Base Excess -5.1 mmol/L Laboratory results per my review. Medications Administered Medications (Trade) Dose Ordered Sig/Karlo Route Start Time Stop Time Status Last Admin Dose Admin Sodium Chloride (Nss 1000ml) 1,000 ml @ 999 mls/hr Q1H1M STAT IV 04/30/16 20:18 04/30/16 21:18 DC 04/30/16 20:57 999 MLS/HR Penicillin V Potassium (Veetids Tab) 500 mg NOW ONCE PO 04/30/16 20:30 04/30/16 20:31 DC 04/30/16 20:58 500 MG Levofloxacin (Levaquin Tab) 750 mg NOW ONCE PO 04/30/16 23:30 04/30/16 23:31 DC 04/30/16 23:34 750 MG Cefdinir (Omnicef Susp) 300 mg NOW STAT PO 04/30/16 23:38 04/30/16 23:39 DC 04/30/16 23:41 300 MG ED Course ED COURSE: Vital signs were reviewed and showed normal vital signs. The patients medical record was reviewed The above diagnostic studies were performed and reviewed. ED treatments and interventions as stated above. 2010: The patient was evaluated in room C2. A complete history and physical examination was performed. 2018: Ordered Sodium Chloride 1000 mL @ 999 mL/hr IV. 2029: Ordered Penicillin V 500 mg PO. 2214: I checked on the patient at this time, she is doing okay. 0: Ordered Levofloxacin 750 mg PO. 8: Ordered Cefdinir 300 mg PO. 2335: Upon reevaluation, the patient is resting comfortably. I offered admission to the patient, and she declines, she would like to go home. I discussed my findings with the patient and she understands and agrees with the treatment plan. The decision to treat as an outpatient was made. The patient remained stable while under my care. The patient appeared well at the time of discharge. Medical Decision Differential diagnosis: Etiologies such as sepsis, UTI, pneumonia, metabolic, electrolyte abnormalities , cardiac sources, intracerebral event, toxicologic, neurologic, as well as others were entertained. Patient is a 46 her old female who presents the ER with her for a nonproductive cough which is been present for the past couple days old associated with right ear pain and decreased hearing. She denies any recorded fevers greater than 100.4. Vitals are stable. She is asplenic. Labs are remarkable for leukocytosis of 16,000. CO2 on BMP was 19. ABG was obtained and shows a normal pH and CO2. I do favor this likely secondary to volume status. She was given a bolus normal saline. With her symptoms and immune compromised state I did offer admission but she declined. She notes that she wants to go home and will follow-up with her primary care doctor. She is discharged on Levaquin and Omnicef which will cover her for her otitis media and any possible restaurant infection. Patient was discharged well-appearing but isn't tenuous state as she is immune compromised. Discussed with Pt concerning signs and symptoms to watch out for. Pt was instructed to follow up with their PCP and discussed with the patient their option to return to the ED at anytime for persistent or worsening symptoms. The appropriate anticipatory guidance and out-patient management, including indications for return to the emergency department, were explained at length to the patient and understood. Impression Primary Impression: Otitis media Additional Impressions: Bronchitis Immune deficiency disorder Scribe Attestation The scribe's documentation has been prepared under my direction and personally reviewed by me in its entirety. I confirm that the note above accurately reflects all work, treatment, procedures, and medical decision making performed by me. Departure Information Dispostion Home / Self-Care Prescriptions Cefdinir (Omnicef) 300 Mg Cap 300 MG PO Q12H for 10 Days, #20 CAP Prov: Mik Gill, DO 04/30/16 Levofloxacin (Levaquin) 750 Mg Tab 750 MG PO QD@08, #9 TAB Prov: Mik Gill, DO 04/30/16 Referrals Juan Branham III, M.D. (PCP) Forms HOME CARE DOCUMENTATION FORM, IMPORTANT VISIT INFORMATION, WORK / SCHOOL INSTRUCTIONS Patient Instructions [facility] Additional Instructions Please follow up with your primary care doctor with in the next 24 hours. Any worsening of your symptoms, please return to the ED immediately. This includes any fevers greater than 100.4, feeling her heart race, significant sweats, diffuse weakness, or any other concerning signs or symptoms from your standpoint. Please take the antibiotics as prescribed. Problem Qualifiers Primary Impression: Otitis media Otitis media type: unspecified Laterality: unspecified laterality Chronicity: unspecified Qualified Codes: H66.90 - Otitis media, unspecified, unspecified ear
[2016-09-06] MEDS ORDERED: EPP3/2 IM (04:39)
[2016-09-06] MEDS ORDERED: TPM/50 PO (16:55)
[2016-09-06] MEDS ORDERED: ALBU18002 INH (17:46)
[2016-09-06] MEDS ORDERED: BACL1TAB PO (17:46)
[2016-09-06] MEDS ORDERED: BUPR150T7 PO (20:35)
[2016-10-17] MEDS ORDERED: OXYC-57 PO (10:37)
== END 2016-04-30 23:43 | disposition home or self-care (01) ==
LOC: C.EDB 18:04 → C.EDC 23:43
DX: J40 Bronchitis, not specified as acute or chronic (principal); H66.91 Otitis media, unspecified, right ear; R05 Cough; D84.9 Immunodeficiency, unspecified; F31.9 Bipolar disorder, unspecified; F17.210 Nicotine dependence, cigarettes, uncomplicated

== ENCOUNTER 2016-07-20 22:50 | Emergency (ER) | payer OTHER ==
[~2016-07-20] VITALS: Ht 156.2 cm; Wt 66.7 kg
[~2016-07-20 22:50] MED LIST changes: -CEPH500C PO; -CRFUDL PO; -HYDR-5688 PO; +LEVO1TAB35 PO
[2016-07-20 22:56] VITALS: Ht 156.2 cm; Wt 66.7 kg
[2016-07-20] MEDS ORDERED: ALBUT/IPRATROP 3MG/0.5MG NEB 3 ML VIAL INH STA (23:07)
[2016-07-20] MEDS ORDERED: KETOROLAC TROMETHAMINE 30 MG/ML VIAL IV STA (23:07)
--- NOTE | 2016-07-20 23:22 | EMERGENCY ROOM VISIT NOTE ---
History Report prepared by Trupti: Ana Horvath Under the Supervision of: Dr. Angelika Cheatham M.D. First contact with patient: 23:03 Chief Complaint: HEADACHE Stated Complaint: HEADACHE, COUGH, TIGHTNESS IN CHEST, FEVER History of Present Illness The patient is a 46 year old female who presents to the Emergency Room with complaints of persistent chest tightness starting earlier today. Her chest pain worsens with deep breaths. She also reports chills, cough, fever, and headache. Her headache is present in her forehead and not like her typical migraines. Her highest recorded temperature was 101 degrees. Her cough is productive of a white sputum. She denies any vomiting or diarrhea. She is eating and drinking well. 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 She is a smoker and currently smokes 0.5 packs per day. She is trying to quit. Source of History: patient Onset: earlier today Position: chest Quality: other (tightness) Timing: other (persistent) Modifying Factors (Worsening): breathing Associated Symptoms: + chills, + cough, + fevers, + headache, No diarrhea, No vomiting Review of Systems See HPI for pertinent positives & negatives. A total of 10 systems reviewed and were otherwise negative. Past Medical & Surgical Medical Problems: (1) Aortic valve insufficiency (2) Asthma (3) Bacteremia (4) Bipolar disorder (5) Bronchitis (6) Hyperlipidemia (7) Migraines (8) Pneumonia Surgical Problems: (1) H/O splenectomy (2) History of dental surgery Family History Cancer Diabetes mellitus FHx: gallbladder disease Heart disease MOTHER Hypertension MOTHER Lung disease Seizures Stroke MOTHER Social History Smoking Status: Current Every Day Smoker Alcohol Use: none Drug Use: none Marital Status: Housing Status: lives with significant other Occupation Status: unemployed Current/Historical Medications Scheduled Albuterol Sulfate (Proair Respiclick), 2 PUFFS INH QID Bupropion Hcl (Wellbutrin Sr), 150 MG PO BID Levofloxacin (Levaquin), 750 MG PO DAILY Pantoprazole (Protonix), 40 MG PO DAILY Topiramate (Topamax), 50 MG PO BID Scheduled PRN Aluminum/Magnesium/Simeth (Maalox Max Susp), 30 ML PO Q6 PRN for dyspepsia Baclofen (Lioresal), 1 TAB PO TID PRN for Muscle Spasms Epinephrine (Epipen 2-Jalen), 0.3 MG IM UD PRN for ALLERGIC REACTION Allergies Coded Allergies: Clindamycin (Verified Allergy, Mild, 07/20/16) Penicillins (Verified Allergy, Mild, 07/20/16) BEE STING (Verified Allergy, Unknown, hives/swelling, 07/20/16) Aspirin (Verified Adverse Reaction, Unknown, 07/20/16) Physical Exam Vital Signs Date Time Temp Pulse Resp B/P Pulse Ox O2 Delivery O2 Flow Rate FiO2 07/21/16 03:18 93 20 106/68 97 Room Air 07/21/16 02:15 88 19 120/83 98 Room Air 07/21/16 01:30 88 19 107/71 99 Room Air 07/21/16 00:55 89 18 84/59 96 Room Air 85/59 122/59 07/20/16 23:30 93 07/20/16 22:56 37.1 99 18 113/61 98 Room Air Physical Exam Vital signs reviewed. General: Well-appearing, smells like cat pee, in no significant distress. HEENT: No scleral icterus, PERRLA, neck supple. Atraumatic. Cardiovascular: Regular rate and rhythm, no extra sounds. Pulmonary: Clear to auscultation bilaterally, normal work of breathing, moist cough. Abdomen: Soft, nontender, nondistended, positive bowel sounds. Musculoskeletal: Atraumatic, no peripheral edema. Neurologic: Patient awake alert and oriented x 3, full strength in all 4 extremities. Cranial nerves 2 through 12 grossly intact. Skin: Warm, dry, no rash Medical Decision & Procedures ER Provider Diagnostic Interpretation: X-ray results as stated below per interpretation by me. Radiology results as stated below per my review and [facility] radiologist interpretation: Chest X-ray: No focal lung consolidation. No failure. No pneumothorax. CTA Chest: No evidence of pulmonary embolism or aortic dissection. Mild esophageal wall thickening. Correlate clinically for esophagitis. Mild peribronchial thickening. Minor atelectatic changes. Small pulmonary nodules measuring up to 7 mm in the right lower lobe. Compare to prior studies of available or consider followup imaging. No pneumothorax or pleural effusion. CT Head: Compared to 09/03/2015. No acute intracranial process. Laboratory Results 07/20/16 23:30 Red Blood Count 4.49, Mean Corpuscular Volume 85.1, Mean Corpuscular Hemoglobin 27.4, Mean Corpuscular Hemoglobin Concent 32.2, Mean Platelet Volume 11.0, Neutrophils (%) (Auto) 60.0, Lymphocytes (%) (Auto) 30.5, Monocytes (%) (Auto) 7.3, Eosinophils (%) (Auto) 1.3, Basophils (%) (Auto) 0.4, Neutrophils # (Auto) 13.99, Lymphocytes # (Auto) 7.13, Monocytes # (Auto) 1.70, Eosinophils # (Auto) 0.31, Basophils # (Auto) 0.09 07/20/16 23:30 Test 07/20/16 23:30 07/20/16 23:42 07/21/16 01:11 White Blood Count 23.34 K/uL (4.8-10.8) Red Blood Count 4.49 M/uL (4.2-5.4) Hemoglobin 12.3 g/dL (12.0-16.0) Hematocrit 38.2 % (37-47) Mean Corpuscular Volume 85.1 fL (80-100) Mean Corpuscular Hemoglobin 27.4 pg (25-34) Mean Corpuscular Hemoglobin Concent 32.2 g/dl (32-36) Platelet Count 499 K/uL (130-400) Mean Platelet Volume 11.0 fL (7.4-10.4) Neutrophils (%) (Auto) 60.0 % Lymphocytes (%) (Auto) 30.5 % Monocytes (%) (Auto) 7.3 % Eosinophils (%) (Auto) 1.3 % Basophils (%) (Auto) 0.4 % Neutrophils # (Auto) 13.99 K/uL (1.4-6.5) Lymphocytes # (Auto) 7.13 K/uL (1.2-3.4) Monocytes # (Auto) 1.70 K/uL (0.11-0.59) Eosinophils # (Auto) 0.31 K/uL (0-0.5) Basophils # (Auto) 0.09 K/uL (0-0.2) RDW Standard Deviation 46.0 fL (36.4-46.3) RDW Coefficient of Variation 14.9 % (11.5-14.5) Immature Granulocyte % (Auto) 0.5 % Immature Granulocyte # (Auto) 0.12 K/uL (0.00-0.02) Red Blood Cell Morphology Unremarkable Anion Gap 8.0 mmol/L (3-11) Est Creatinine Clear Calc Drug Dose 73.2 ml/min Estimated GFR () 95.2 Estimated GFR (Non- 82.2 BUN/Creatinine Ratio 8.2 (10-20) Calcium Level 8.3 mg/dl (8.5-10.1) Total Bilirubin 0.1 mg/dl (0.2-1) Direct Bilirubin mg/dl (0-0.2) Aspartate Amino Transf (AST/SGOT) 22 U/L (15-37) Alanine Aminotransferase (ALT/SGPT) 30 U/L (12-78) Alkaline Phosphatase 81 U/L (45-117) Total Creatine Kinase 39 U/L (26-192) Creatine Kinase MB < 0.5 ng/ml (0.5-3.6) Creatine Kinase MB Ratio (0-3.0) Total Protein 6.9 gm/dl (6.4-8.2) Albumin 3.4 gm/dl (3.4-5.0) Chemistry Specimen Hemolysis Bedside Troponin I 0.000 ng/ml (0-0.045) Bedside Lactic Acid Venous 1.17 mmol/L (0.90-1.70) Laboratory results per my review. Medications Administered Medications (Trade) Dose Ordered Sig/Karlo Route Start Time Stop Time Status Last Admin Dose Admin Albuterol/ Ipratropium (Duoneb) 3 ml NOW STAT INH 07/20/16 23:07 07/20/16 23:09 DC 07/20/16 23:22 3 ML Ketorolac Tromethamine 30 mg 30 mg NOW STAT IV 07/20/16 23:07 07/20/16 23:09 DC 07/20/16 23:34 30 MG Sodium Chloride (Nss 1000ml) 2,000 ml @ 999 mls/hr Q2H1M STAT IV 07/21/16 00:58 07/21/16 02:58 DC 07/21/16 01:19 999 MLS/HR Levofloxacin (Levaquin / D5W) 750 mg NOW STAT IV 07/21/16 00:58 07/21/16 01:02 DC 07/21/16 01:19 750 MG ECG Indication: chest pain Rate (beats per minute): 90 Rhythm: sinus rhythm Findings: no acute ischemic change, no ectopy, other (short PA interval) ED Course 230: Past medical records reviewed. The patient was evaluated in room B10. A complete history and physical examination was performed. 230: Toradol Inj 30 mg IV, Duoneb 3 ml INH. 0058: Levofloxacin 750 mg IV, NSS 2000 ml @ 999 mls/hr IV. 0122: I reevaluated the patient. She is resting comfortably. Her headache has resolved. 0229: I reevaluated the patient. She informed me she had a cortisone injection on July 15 and she has no spleen. 0316: Upon reevaluation, the patient appeared to have improvement of her symptoms. I discussed findings with her. She verbalized agreement of the treatment plan. She was discharged home. Medical Decision Differential diagnosis: Etiologies such as infections, reactive airway disease, pneumonia, pneumothorax , COPD, CHF, cardiac ischemia, pulmonary embolism, musculoskeletal, gastrointestinal, as well as others were entertained. This patient was evaluated and appeared to be in no significant distress. Physical examination is fairly unrevealing. The patient does have some chest discomfort with deep inspiration. She reports a subjective fever but is afebrile here in the ER. She was given a DuoNeb treatment. Laboratory work reveals a leukocytosis. Lactic acid is normal. Patient was hydrated with normal saline solution after her blood pressure was noted to be in the 80s briefly. CT scan of the head was performed and is negative. Patient is noted to be slightly tachycardic. With the asymmetric blood pressures, a CT scan of the chest was performed and is negative for PE/dissection. 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 She recently had a cortisone injection which is likely contributing to her leukocytosis. The patient was given 750 mg of IV Levaquin and offered an observation stay in the hospital however she prefers to be discharged. The patient was given a prescription for Levaquin 750 mg daily for 6 more days. She'll follow-up with her physician this week for reevaluation return to the ER for worsening of symptoms or any medical concerns. Impression Primary Impression: Bronchitis Additional Impression: Leukocytosis Scribe Attestation The scribe's documentation has been prepared under my direction and personally reviewed by me in its entirety. I confirm that the note above accurately reflects all work, treatment, procedures, and medical decision making performed by me. Departure Information Dispostion Home / Self-Care Prescriptions Levofloxacin (Levaquin) 750 Mg Tab 750 MG PO DAILY for 6 Days, #6 TAB Prov: Angelika Cheatham M.D. 07/21/16 Referrals Juan Branham III, M.D. (PCP) Forms HOME CARE DOCUMENTATION FORM, IMPORTANT VISIT INFORMATION Patient Instructions My [facility] Additional Instructions Diagnosis: Leukocytosis, bronchitis Levaquin 750 mg daily for 6 more days, start tomorrow. Tylenol 650 mg every 6 hours as needed for pain or fever. Albuterol 2 puffs every 4 hours as needed for wheezing or cough. Drink plenty of clear fluids. Follow-up with your physician this week for reevaluation. Return to the ER for worsening of symptoms or any medical concerns. Problem Qualifiers
[2016-07-20 23:53] LABS: HEMATOCRIT 38.2 % (37-47); MEAN CELL VOLUME 85.1 fL (80-100); MEAN CORPUSCULAR HEMOGLOBIN 27.4 pg (25-34); MEAN CORPUSCULAR HGB CONC 32.2 g/dl (32-36); PLATELET COUNT 499 K/uL (130-400); RED BLOOD COUNT 4.49 M/uL (4.2-5.4); WHITE BLOOD COUNT 23.34 K/uL (4.8-10.8)
[2016-07-21 00:14] LABS: ALT/SGPT 30 U/L (12-78); AST/SGOT 22 U/L (15-37); BLOOD UREA NITROGEN 7 mg/dl (7-18); BUN/CREATININE RATIO 8.2 (10-20); CALCIUM 8.3 mg/dl (8.5-10.1); CARBON DIOXIDE 26 mmol/L (21-32); CHLORIDE 108 mmol/L (98-107); CREATININE 0.85 mg/dl (0.60-1.20); GLUCOSE 94 mg/dl (70-99); SODIUM 142 mmol/L (136-145)
[2016-07-21 00:17] LABS: ALKALINE PHOSPHATASE 81 U/L (45-117)
[2016-07-21 00:27] LABS: BASO % 0.4 %; BASO ABS # 0.09 K/uL (0-0.2); COMPLETE YES; EOS % 1.3 %; IG% 0.5 %; LYMPH % 30.5 %; LYMPH ABS # 7.13 K/uL (1.2-3.4); MONO % 7.3 %
[2016-07-21] MEDS ORDERED: SODIUM CHLORIDE 0.9% 1000ML 2,000 ML IV STA (00:58)
[2016-07-21] MEDS ORDERED: LEVAQUIN 750MG / 150ML D5W IV STA (00:58)
[2016-07-21] MEDS ORDERED: OPTIRAY 320 IV PRN (02:15)
[2016-07-21] MEDS ORDERED: LEVO1TAB35 PO (03:17)
[2016-07-21 03:18] VITALS: BP 106/68; PULSE 93; O2SAT 97
--- NOTE | 2016-07-21 07:22 | DIAGNOSTIC IMAGING REPORT ---
CHEST ONE VIEW PORTABLE CLINICAL HISTORY: Fever. Cough. COMPARISON STUDY: Chest radiograph April 30, 2016. FINDINGS: Lung volumes are normal. There is no pneumothorax or pleural effusion. Cardiomediastinal silhouette is normal. There is no evidence of pulmonary edema. No consolidation is present. An 8 mm right midlung nodule is unchanged since earlier studies. Therefore, this is benign. IMPRESSION: No acute cardiopulmonary findings. Electronically signed by: Abrahan Reece M.D. 07/21/2016 7:20 AM Dictated Date/Time: 07/21/2016 7:19 AM
--- NOTE | 2016-07-21 08:32 | DIAGNOSTIC IMAGING REPORT ---
CT OF THE HEAD WITHOUT CONTRAST CLINICAL HISTORY: Headache. Leukocytosis. COMPARISON STUDY: Head CT September 03, 2015. CT DOSE: 537.48 mGy.cm TECHNIQUE: Helical axial images of the head were obtained without IV contrast. Automated exposure control was utilized for the study. FINDINGS: No acute intracranial hemorrhage, midline shift or mass effect is present. Brain volume is normal. Ventricular system is normal. Basilar cisterns are patent. There are no extra-axial collections. Mcleod-white differentiation is maintained. There are no findings to suggest acute dural sinus thrombosis or acute territorial infarct. Visualized portions of the sinuses and mastoid air cells are clear. There are no calvarial abnormalities. IMPRESSION: No acute intracranial findings. Electronically signed by: Abrahan Reece M.D. 07/21/2016 8:31 AM Dictated Date/Time: 07/21/2016 8:26 AM
--- NOTE | 2016-07-21 08:40 | DIAGNOSTIC IMAGING REPORT ---
CT ANGIOGRAPHY OF THE CHEST, PULMONARY EMBOLUS PROTOCOL CLINICAL HISTORY: Cough, chest tightness and fever. COMPARISON STUDY: Chest CT November 20, 2010. TECHNIQUE: Following IV administration of 88 mL of Optiray-320, helical axial images of the chest were obtained utilizing the pulmonary embolus protocol. Maximal intensity projections and sagittal and coronal reformats were viewed on an independent 3D workstation. IV contrast was administered without complication. CT DOSE: 210.87 mGy.cm FINDINGS: No pulmonary emboli are identified. There is no evidence of thoracic aortic dissection. The size of the heart is normal. There is no pericardial effusion. There are no enlarged thoracic lymph nodes. There is no pneumothorax or pleural effusion. There is no consolidation. A few pulmonary nodules are unchanged since CT of November 20, 2010. The largest nodule is a 7 mm right lower lobe nodule. There are no new nodules. The bony thorax and upper abdomen are unremarkable. IMPRESSION: 1. No pulmonary emboli identified. 2. No acute intrathoracic findings. 3. Several pulmonary nodules unchanged since exam of November 20, 2010. Stability over this time period is indicative of a benign etiology. Electronically signed by: Abrahan Reece M.D. 07/21/2016 8:39 AM Dictated Date/Time: 07/21/2016 8:34 AM
[2016-09-06] MEDS ORDERED: EPP3/2 IM (04:39)
[2016-09-06] MEDS ORDERED: TPM/50 PO (16:55)
[2016-09-06] MEDS ORDERED: ALBU18002 INH (17:46)
[2016-09-06] MEDS ORDERED: BACL1TAB PO (17:46)
[2016-09-06] MEDS ORDERED: BUPR150T7 PO (20:35)
[2016-09-06] MEDS ORDERED: DIPH1TAB87 PO (22:19)
[2016-10-17] MEDS ORDERED: OXYC-57 PO (10:37)
== END 2016-07-21 03:30 | disposition home or self-care (01) ==
LOC: C.EDB 22:51
DX: J40 Bronchitis, not specified as acute or chronic (principal); D72.829 Elevated white blood cell count, unspecified; F17.200 Nicotine dependence, unspecified, uncomplicated; I35.1 Nonrheumatic aortic (valve) insufficiency; J45.909 Unspecified asthma, uncomplicated; F31.9 Bipolar disorder, unspecified; E78.5 Hyperlipidemia, unspecified; Z90.81 Acquired absence of spleen; Z83.3 Family history of diabetes mellitus; Z82.49 Family history of ischemic heart disease and other diseases of the circulatory system; Z82.0 Family history of epilepsy and other diseases of the nervous system; Z82.3 Family history of stroke

== ENCOUNTER 2016-09-06 21:20 | Emergency (ER) | payer OTHER ==
[~2016-09-06] VITALS: Ht 157.5 cm; Wt 63.8 kg
[~2016-09-06 21:20] MED LIST changes: +ALBU18002 INH; -ANT25 PO; +BACL1TAB PO; +BUPR150T7 PO; -CYCL1POW PO; +EPP3/2 IM; -FLUT0.15 NAE; -LEVO1TAB35 PO; -MLXC PO; -PRT40 PO; +TPM/50 PO
[2016-09-06 21:24] VITALS: TEMP 36.6; Ht 157.5 cm; Wt 63.8 kg
[2016-09-06] MEDS ORDERED: DiphenhydrAMINE HCL 50 MG/ML VIAL IM STA (21:32)
[2016-09-06] MEDS ORDERED: DEXAMETHASONE SOD INJ 10 MG/ML VIAL IM ONE (21:45)
[2016-09-06] MEDS ORDERED: DIPH1TAB PO (22:19)
[2016-09-06 22:33] VITALS: BP 113/74; PULSE 88; O2SAT 99
[2016-09-06] MEDS ORDERED: ALUMSUS2 PO (23:45)
[2016-09-06] MEDS ORDERED: PANT40TA PO (23:48)
--- NOTE | 2016-09-07 00:18 | EMERGENCY ROOM VISIT NOTE ---
History Report prepared by Trupti: Rick Ojeda Under the Supervision of: Serafin GutierrezO. First contact with patient: 21:26 Chief Complaint: ALLERGIC REACTION Stated Complaint: STUNG BY WASP HAVE ALLERGY TO BEES History of Present Illness The patient is a 46 year old female who presents to the Emergency Room with complaints of a persistent allergic reaction that started around 45 minutes ago after being stung by a wasp. She says that she has an allergy to bees. The patient did not use her EpiPen. She did take Benadryl 45 minutes ago. She states that her throat feels a bit tight. This is the second time this has happened, and the last time was worse because she broke out in hives. She denies any shortness of breath, swelling of her throat, chest pain, nausea, vomiting, diarrhea, swelling, secretions, or pain or burning with urination. Source of History: patient Onset: 45 minutes ago Position: other (global - allergic reaction) Quality: other (bit by wasp) Timing: other (persistent) Associated Symptoms: No chest pain, No SOB, No nausea, No vomiting, No diarrhea, No urinary symptoms Note: Associated symptoms: Throat feels tight. Denies swelling, secretions. Review of Systems See HPI for pertinent positives & negatives. A total of 10 systems reviewed and were otherwise negative. Past Medical & Surgical Medical Problems: (1) Aortic valve insufficiency (2) Asthma (3) Bacteremia (4) Bipolar disorder (5) Bronchitis (6) Hyperlipidemia (7) Migraines (8) Pneumonia Surgical Problems: (1) H/O splenectomy (2) History of dental surgery Family History Cancer Diabetes mellitus FHx: gallbladder disease Heart disease MOTHER Hypertension MOTHER Lung disease Seizures Stroke MOTHER Social History Smoking Status: Current Every Day Smoker Alcohol Use: none Drug Use: none Marital Status: Housing Status: lives with significant other Occupation Status: unemployed Current/Historical Medications Scheduled Bupropion Hcl (Wellbutrin Sr), 150 MG PO BID Pantoprazole (Protonix), 40 MG PO DAILY Topiramate (Topamax), 50 MG PO BID Scheduled PRN Albuterol Sulfate (Proair Respiclick), 2 PUFFS INH QID PRN for SOB/Wheezing Aluminum/Magnesium/Simeth (Maalox Max Susp), 30 ML PO Q6H PRN for Dyspepsia Baclofen (Lioresal), 10 MG PO TID PRN for Muscle Spasms Diphenhydramine Hcl (Benadryl Allergy), 25 MG PO UD PRN for ALLERGIC REACTION Epinephrine (Epipen 2-Jalen), 0.3 MG IM UD PRN for ALLERGIC REACTION Allergies Coded Allergies: Clindamycin (Verified Allergy, Mild, 07/20/16) Penicillins (Verified Allergy, Mild, 07/20/16) BEE STING (Verified Allergy, Unknown, hives/swelling, 07/20/16) Aspirin (Verified Adverse Reaction, Unknown, 07/20/16) Physical Exam Vital Signs Date Time Temp Pulse Resp B/P (MAP) Pulse Ox O2 Delivery O2 Flow Rate FiO2 09/06/16 22:33 88 20 113/74 99 09/06/16 22:26 97 Room Air 09/06/16 21:59 84 20 92/64 96 Room Air 09/06/16 21:24 36.6 94 18 125/81 98 Room Air Physical Exam GENERAL: sitting up in bed, disheveled EYE EXAM: normal conjunctiva, PERRL and EOM's grossly intact OROPHARYNX: no exudate, no erythema, lips, buccal mucosa, and tongue normal and mucous membranes are moist NECK: supple, no nuchal rigidity, no adenopathy, non-tender, no stridor LUNGS: Clear to auscultation. Normal chest wall mechanics HEART: no murmurs, S1 normal and S2 normal ABDOMEN: abdomen soft, non-tender, normo-active bowel sounds, no masses, no rebound or guarding. SKIN: no rashes and no bruising UPPER EXTREMITIES: dorsal aspect of left second MTP with mild erythema 5 cm in diameter LOWER EXTREMITIES: No pitting edema. NEURO EXAM: Normal sensorium, cranial nerves II-XII grossly intact, normal speech, no gross weakness of arms, no gross weakness of legs. Medical Decision & Procedures Medications Administered Medications (Trade) Dose Ordered Sig/Karlo Route Start Time Stop Time Status Last Admin Dose Admin Diphenhydramine HCl (Benadryl Inj) 25 mg NOW STAT IM 09/06/16 21:32 09/06/16 21:34 DC 09/06/16 21:57 25 MG Dexamethasone Sodium Phosphate (Decadron Inj) 10 mg NOW ONCE IM 09/06/16 21:45 09/06/16 21:46 DC 09/06/16 21:57 10 MG ECG Indication: other (allergic reaction) Rate (beats per minute): 85 Rhythm: sinus rhythm Findings: no acute ischemic change, no ectopy, other (normal axis, normal intervals) ED Course ED COURSE: Vital signs were reviewed and showed normal vitals. The patients medical record was reviewed The above diagnostic studies were performed and reviewed. ED treatments and interventions as stated above. 2128: The patient was evaluated in room B12B. A complete history and physical examination was performed. 2132: Ordered Benadryl Inj 25 mg IM. 2145: Ordered Decadron Inj 10 mg IM. 2223: Upon reevaluation, the patient's rash has gone away and the feeling in her throat has gone away.I discussed my findings with the patient and she understands and agrees with the treatment plan. Based on the patients age, coexisting illnesses, exam and lab findings the decision to treat as an outpatient was made. The patient remained stable while under my care. The patient appeared well at the time of discharge. Medical Decision Differential diagnosis: Etiologies such as allergic reaction, anaphylaxis, urticaria, Christianson-Timothy syndrome, toxic epidermal necrolysis, erythema multiforme, cellulitis, as well as others were entertained. Blood pressure screening: Patient was found to have normal blood pressure on screening and does not require follow-up. Medication Reconciliation: I attest that I have personally reviewed the patient' s current medication list. Patient is a 46-year-old female who presents the ER for allergic reaction. She was stung by a bee and took Benadryl but has still has some erythema of her left hand. She notes a slight tightness in the back of her throat. EKG was unremarkable. She has had this once before following bee stings. She was given IM Benadryl and steroids. She complete resolution of her symptoms. Patient was discharged with a localized allergic reaction secondary to bee sting. Discussed with Pt concerning signs and symptoms to watch out for. Pt was instructed to follow up with their PCP and discussed with the patient their option to return to the ED at anytime for persistent or worsening symptoms. The appropriate anticipatory guidance and out-patient management, including indications for return to the emergency department, were explained at length to the patient and understood. Impression Primary Impression: Allergic reaction Scribe Attestation The scribe's documentation has been prepared under my direction and personally reviewed by me in its entirety. I confirm that the note above accurately reflects all work, treatment, procedures, and medical decision making performed by me. Departure Information Dispostion Home / Self-Care Referrals Juan Branham III, M.D. (PCP) Patient Instructions ED Allergic Reaction Local Other, My [facility] Additional Instructions Please follow up with your primary care doctor with in the next 24 hours. Any worsening of your symptoms, please return to the ED immediately. This includes shortness of breath, swelling of throat, trouble breathing, spreading rash, or any other concerning signs or symptoms from your standpoint. Please take Benadryl 50 mg every 8 hours as needed for itching. Do not drive for the remainder of the night and while taking Benadryl. Problem Qualifiers Primary Impression: Allergic reaction Encounter type: initial encounter Qualified Codes: T78.40XA - Allergy, unspecified, initial encounter
[2016-10-17] MEDS ORDERED: OXYC-57 PO (10:37)
== END 2016-09-06 22:35 | disposition home or self-care (01) ==
LOC: C.EDB 21:21
DX: T78.40XA Allergy, unspecified, initial encounter (principal); X58.XXXA Exposure to other specified factors, initial encounter; I08.0 Rheumatic disorders of both mitral and aortic valves; J45.909 Unspecified asthma, uncomplicated; F31.9 Bipolar disorder, unspecified; E78.5 Hyperlipidemia, unspecified; Z83.3 Family history of diabetes mellitus; Z82.49 Family history of ischemic heart disease and other diseases of the circulatory system; Z82.0 Family history of epilepsy and other diseases of the nervous system; Z82.3 Family history of stroke; F17.200 Nicotine dependence, unspecified, uncomplicated

== ENCOUNTER → 2016-09-30 | Outpatient (CLI) | payer OTHER ==
[~2016-09-30] MED LIST changes: +ALUMSUS2 PO; +DIPH1TAB PO; +DOXY-300 PO; +OXYC-57 PO; +PANT40TA PO
[2016-09-30 16:44] LABS: BASO % 0.6 %; COMPLETE YES; EOS % 2.7 %; HEMATOCRIT 44.2 % (37-47); IG% 0.3 %; LYMPH % 25.2 %; LYMPH ABS # 3.95 K/uL (1.2-3.4); MEAN CELL VOLUME 83.7 fL (80-100); MEAN CORPUSCULAR HEMOGLOBIN 25.9 pg (25-34); MONO % 6.3 %; NEUT % 64.9 %; PLATELET COUNT 680 K/uL (130-400); RED BLOOD COUNT 5.28 M/uL (4.2-5.4); WHITE BLOOD COUNT 15.68 K/uL (4.8-10.8)
[2016-09-30 16:55] LABS: BLOOD UREA NITROGEN 9 mg/dl (7-18); BUN/CREATININE RATIO 12.7 (10-20); CARBON DIOXIDE 22 mmol/L (21-32); CHLORIDE 109 mmol/L (98-107); CREATININE 0.68 mg/dl (0.60-1.20); GLUCOSE 88 mg/dl (70-99); POTASSIUM 4.2 mmol/L (3.5-5.1); SODIUM 139 mmol/L (136-145)
== END | disposition home or self-care (01) ==
LOC: C.LABBC 13:56
PROVIDERS: ATTEND Orthopaedic Surgery
DX: M25.519 Pain in unspecified shoulder (principal)

== ENCOUNTER 2016-10-03 18:39 | Emergency (ER) | payer OTHER ==
[~2016-10-03] VITALS: Ht 157.5 cm; Wt 64.3 kg
[~2016-10-03 18:39] MED LIST changes: -DOXY-300 PO; -OXYC-57 PO
[2016-10-03 18:50] VITALS: TEMP 37; Ht 157.5 cm; Wt 64.3 kg
--- NOTE | 2016-10-03 19:00 | EMERGENCY ROOM VISIT NOTE ---
History First contact with patient: 18:54 Chief Complaint: OTHER COMPLAINT Stated Complaint: LUMP UNDER RIGHT ARM PIT History of Present Illness The patient is a 46 year old female who presents to the Emergency Room via private vehicle with complaints of "lump under right armpit". The patient states that yesterday she noticed a lump underneath her right armpit, followed by pain, redness and continued swelling. She also notes pain radiating into the right breast. She notes her tetanus is up-to-date, and denies nausea, vomiting, fevers or chills. She denies any recent bites or injury/trauma. Review of Systems A complete 6-point Review of Systems was discussed with the patient, with pertinent positives and negatives listed in the History of Present Illness. All remaining Review of Systems questions can be considered negative unless otherwise specified. Past Medical/Surgical History Medical Problems: (1) Aortic valve insufficiency (2) Asthma (3) Bacteremia (4) Bipolar disorder (5) Bronchitis (6) Hyperlipidemia (7) Migraines (8) Pneumonia Surgical Problems: (1) H/O splenectomy (2) History of dental surgery Family History Cancer Diabetes mellitus FHx: gallbladder disease Heart disease MOTHER Hypertension MOTHER Lung disease Seizures Stroke MOTHER Social History Smoking Status: Current Every Day Smoker Alcohol Use: none Drug Use: none Marital Status: Housing Status: lives with significant other Occupation Status: unemployed Current/Historical Medications Scheduled Bupropion Hcl (Wellbutrin Sr), 150 MG PO BID Doxycycline (Monohydrate) (Doxycycline), 100 MG PO BID Pantoprazole (Protonix), 40 MG PO QPM Topiramate (Topamax), 50 MG PO BID Scheduled PRN Albuterol Sulfate (Proair Respiclick), 2 PUFFS INH QID PRN for SOB/Wheezing Aluminum/Magnesium/Simeth (Maalox Max Susp), 30 ML PO Q6H PRN for Dyspepsia Baclofen (Lioresal), 10 MG PO TID PRN for Muscle Spasms Diphenhydramine Hcl (Benadryl Allergy), 25 MG PO UD PRN for ALLERGIC REACTION Epinephrine (Epipen 2-Jalen), 0.3 MG IM UD PRN for ALLERGIC REACTION Physical Exam Vital Signs Date Time Temp Pulse Resp B/P (MAP) Pulse Ox O2 Delivery O2 Flow Rate FiO2 10/03/16 20:28 90 18 109/76 100 10/03/16 18:50 37.0 77 20 110/69 98 Room Air Physical Exam VITAL SIGNS - Vital signs and nursing notes were reviewed. Stable. She is afebrile. GENERAL -46-year-old female appearing her stated age who is in no acute distress. Communicates well with provider and answers questions appropriately. SKIN - there is a small circumferential erythematous rash underneath the right armpit. This is with a palpable nodule underneath the skin. Nonfluctuant. HEAD - NC/AT. EXTREMITIES - No clubbing or peripheral cyanosis. No pretibial edema present. There is tenderness to palpation overlying the right axilla. There are no neurovascular deficits. +5/5 strength noted in UE/LE bilaterally. Medical Decision & Procedures ER Provider Diagnostic Interpretation: RIGHT EXTREMITY NONVASCULAR LIMITED HISTORY: 46 years-old Female acute edema, erythema and pain in right axilla. COMPARISON: CTA of the chest 07/21/2016 TECHNIQUE: Multiple real-time sonographic images of the right axillary tissues were obtained assessing grayscale appearance and color flow. FINDINGS: Within the superficial subcutaneous tissues of the right axillary region within the area of palpable concern there is an irregular taller than wide hypoechoic structure extending towards the skin surface without internal vascularity or significant posterior acoustic features or internal flow measuring 0.3 x 0.4 x 0.2 centimeters. Commercial Illustrator reports that the hypoechoic collection is adjacent to a palpable skin abnormality. The remaining imaged soft tissues are within normal limits. IMPRESSION: Small hypoechoic lesion within the area of concern measures up to 0.4 cm suggesting a small sebaceous cyst or phlegmon without drainable abscess identified. The above report was generated using voice recognition software. It may contain grammatical, syntax or spelling errors. Electronically signed by: Jone Holcomb M.D. 10/03/2016 7:41 PM Dictated Date/Time: 10/03/2016 7:37 PM Medications Administered Medications (Trade) Dose Ordered Sig/Karlo Route Start Time Stop Time Status Last Admin Dose Admin Doxycycline Hyclate (Vibramycin Cap) 100 mg ONE STAT PO 10/03/16 20:07 10/03/16 20:09 DC 10/03/16 20:27 100 MG Medical Decision Patient was seen and evaluated as above. She presents to us today with a 2 day history of swelling, pain and edema with erythema in the right axillary region. There is also a palpable nodule. Ultrasound was obtained and reveals no fluid collection, and either a sebaceous cyst or phlegmon. Because there is overlying sialitis she'll be started on an antibiotic. Given her allergies I will start with doxycycline. This will be for 10 days. She was given the first dose here with remainder sent to the pharmacy. She is to follow-up with her family doctor regarding today's visit, and was educated upon worrisome symptoms which to return. She had questions or discharge, and was discharged home in good condition. In evaluation treatment this patient following differential diagnoses were entertained: Cellulitis, lymph node enlargement, abscess, among others. Impression Primary Impression: Cellulitis of axilla, right Departure Information Dispostion Home / Self-Care Condition GOOD Prescriptions Doxycycline (Monohydrate) (Doxycycline) 100 Mg Cap 100 MG PO BID, #19 TABS Prov: Ramon Bonilla PA-C 10/03/16 Referrals Juan Branham III, M.D. (PCP) Patient Instructions My [facility] Additional Instructions You were seen in the emergency department for skin infection of the right armpit , and bump. At this time ultrasound shows no evidence of drainable collection of fluid. You have been prescribed Doxycycline to be taken as prescribed. This is an antibiotic. All antibiotics have the potential to cause diarrhea. Stop this medication and contact a medical provider if you were to develop any significant adverse side effects including: wheezing, shortness of breath, passing out, vomiting, or a diffuse rash. Always take antibiotics as directed and COMPLETE the ENTIRE course regardless of the improvement of your symptoms. Protect yourself with sunscreen while on this antibiotic as it increases your skin's sensitivity to the light and cause bad sunburns. In addition, you should be sure to take this pill after eating. Make sure the pill is completely swallowed as this medication can cause irritation to the lining of the esophagus. Do NOT drink milk or eat anything with large amounts of Calcium in them 1 hour prior to taking this medication as this will decrease the effectiveness of the medication. Please call your family doctor first thing tomorrow morning to schedule follow- up regarding today's visit. Please return to the emergency department with any new/concerning symptoms.
--- NOTE | 2016-10-03 19:42 | DIAGNOSTIC IMAGING REPORT ---
RIGHT EXTREMITY NONVASCULAR LIMITED HISTORY: 46 years-old Female acute edema, erythema and pain in right axilla. COMPARISON: CTA of the chest 07/21/2016 TECHNIQUE: Multiple real-time sonographic images of the right axillary tissues were obtained assessing grayscale appearance and color flow. FINDINGS: Within the superficial subcutaneous tissues of the right axillary region within the area of palpable concern there is an irregular taller than wide hypoechoic structure extending towards the skin surface without internal vascularity or significant posterior acoustic features or internal flow measuring 0.3 x 0.4 x 0.2 centimeters. Jewel Oliving Machine Operator reports that the hypoechoic collection is adjacent to a palpable skin abnormality. The remaining imaged soft tissues are within normal limits. IMPRESSION: Small hypoechoic lesion within the area of concern measures up to 0.4 cm suggesting a small sebaceous cyst or phlegmon without drainable abscess identified. The above report was generated using voice recognition software. It may contain grammatical, syntax or spelling errors. Electronically signed by: Jone Holcomb M.D. 10/03/2016 7:41 PM Dictated Date/Time: 10/03/2016 7:37 PM
[2016-10-03] MEDS ORDERED: DOXYCYCLINE HYCLATE 100 MG CAP PO STA (20:07)
[2016-10-03] MEDS ORDERED: DOXY-300 PO (20:09)
[2016-10-03 20:28] VITALS: BP 109/76; PULSE 90; O2SAT 100
[2016-10-17] MEDS ORDERED: OXYC-57 PO (10:37)
== END 2016-10-03 20:29 | disposition home or self-care (01) ==
LOC: C.EDB 18:40 → C.EDD 20:29
DX: L03.111 Cellulitis of right axilla (principal); E78.5 Hyperlipidemia, unspecified; I35.1 Nonrheumatic aortic (valve) insufficiency; F31.9 Bipolar disorder, unspecified; J45.909 Unspecified asthma, uncomplicated; F17.200 Nicotine dependence, unspecified, uncomplicated; Z98.890 Other specified postprocedural states; Z79.899 Other long term (current) drug therapy; Z80.9 Family history of malignant neoplasm, unspecified; Z83.3 Family history of diabetes mellitus; Z83.79 Family history of other diseases of the digestive system; Z82.49 Family history of ischemic heart disease and other diseases of the circulatory system; Z82.0 Family history of epilepsy and other diseases of the nervous system; Z82.3 Family history of stroke

== ENCOUNTER → 2016-10-17 | Day surgery (SDC) | payer OTHER ==
[2016-10-02 13:36] VITALS: Ht 157.5 cm; Wt 65.0 kg
[~2016-10-17] VITALS: Ht 157.5 cm; Wt 65.0 kg
[~2016-10-17] MED LIST changes: +ATROPINE SULFATE 0.1 MG/ML 5ML SYR IV PRN; +BUPIVACAINE/EPINEPHRINE 0.25% 10 ML VIAL ONE; +DEXAMETHASONE SOD INJ 4 MG/ML VIAL ONE; +DOXY-300 PO; +EpHEDrine SULFATE INJ 50 MG/ML AMP IV PRN; +EpINEphrine INJ 1MG/ML AMP 1 MG/ML AMP ONE; +FENTANYL CITRATE INJ 50 MCG/1 ML 2 ML VIAL IV PRN; +FENTANYL CITRATE INJ 50 MCG/1 ML 2 ML VIAL ONE; +HYDROmorphone INJ 1 MG/ML SYR IV PRN; +LACTATED RINGER'S 1000ML 1,000 ML IV SCH; +LIDOCAINE 2% 20 MG/ML 5ML SYR ONE; +LIDOCAINE HCL 1% MPF 2 ML VIAL ONE; +MIDAZOLAM HCL 1 MG/ML 2ML VIAL ONE; +ONDANSETRON INJ 2 MG/ML 2 ML VIAL IV PRN; +ONDANSETRON INJ 2 MG/ML 2 ML VIAL ONE; +OXYC-57 PO; +OXYCODONE/ACETAMINOPHEN 5-325 TAB PO PRN; +PHENYLEPHRINE HCL INJ 10 MG/ML VIAL ONE; +PROMETHAZINE HCL INJ 12.5 MG in SODIUM CHLORIDE 0.9% 50ML 50 ML IV PRN; +PROPOFOL IV EMULSION 10 MG/ML 20 ML VIAL IV ONE; +ROPIVACAINE 0.5% 5 MG/ML 30 ML VIAL ONE; +SODIUM CHLORIDE 0.9% 1000ML 1,000 ML IV SCH; +VANCOMYCIN 1GM/270ML NSS IV SCH; +VANCOMYCIN HCL 1000MG/20ML VIAL ONE; +WATER, STERILE FOR INJ 10 ML VIAL ONE
--- NOTE | 2016-10-17 06:50 | History & Physical Bridge - SC ---
H&P Re-Evaluation Bridge Note: I have examined the patient, reviewed the History & Physical and in the interval since the performance of the History & Physical I have noted the following changes of clinical significance: No changes noted
--- NOTE | 2016-10-17 10:38 | Discharge Instructions-SurgCtr ---
Discharge Instructions Date of Service Oct 17, 2016. Visit Reason for Visit: Acromioclavicular Joint Arthritis Discharge Discharge Diagnosis / Problem: SAME ABOVE Discharge Goals Goal(s): Decrease discomfort, Improve function Activity Recommendations Activity Limitations: as noted below Lifting Limitations: gradually increase as tolerated Exercise/Sports Limitations: gradually increase as tolerated Driving or Machine Use: resume 1 day after discharge Anesthesia . Post Anesthesia Instructions: If you have had General Anesthesia or IV Sedation: * Do not drive today. * Resume driving when surgeon permits. * Do not make important decisions or sign legal documents today. * Call surgeon for: 1. Temperature elevations greater than 101 degrees F. 2. Uncontrollable pain. 3. Excessive bleeding. 4. Persistent nausea and vomiting. 5. Medication intolerance (nausea, vomiting or rash). * For nausea and vomiting use only clear liquids such as: tea, soda, bouillon until nausea subsides, then gradually increase diet as tolerated. * If you have any concerns or questions, call your surgeon's office. If physician is unavailable and it is an emergency, call 911 or go to the nearest emergency room. . Instructions / Follow-Up Instructions / Follow-Up MEDICATIONS: * Resume previous medications unless instructed otherwise by your surgeon. * Always take pain medication on a full stomach or with food to avoid upset stomach. * Do not drink alcohol or drive while taking narcotics. * Ibuprofen or Tylenol may be taken if narcotic not needed. SPECIAL CARE INSTRUCTIONS: __ None _X_ Keep extremity elevated and iced x 48 hours; apply ice 20-30 minutes 8-10 times/day. May remove at night. _X_ Sling (WEAR FOR COMFORT ONLY) __24 hrs/day __ Remove at night __ Shoulder Immobilizer __ 24 hrs/day __ Remove at night _X_ Dressing __ Maintain until seen in office, may shower with plastic over site _X_ Remove dressings in 24-48 hours and then may shower _X_ Cover incisions with band-aids after showering __ Do not remove steri-strips Call physician if chills or temperature rises above 102 degrees or pain unrelieved by prescribed pain medications at . . Diet Recommendations Home Diet: no limitations Fluid Restriction: None Pending Studies Studies pending at discharge: no Work Instructions Return To Work: after follow-up Lifting Limitations: INCREASE TOLERATED Medical Emergencies . Who to Call and When: Medical Emergencies: If at any time you feel your situation is an emergency, please call 911 immediately. . Non-Emergent Contact Non-Emergency issues call your: Primary Care Provider Call Non-Emergent contact if: you have a fever, temperature is above 101.5 . . "Provider Documentation" section prepared by Bradley Spear. .
[2016-10-17 11:26] VITALS: TEMP 37
--- NOTE | 2016-10-17 11:48 | Anesthesiology Progress Note ---
Anesthesia Post Op Note Date & Time Oct 17, 2016 at 11:47 Vital Signs Pain Intensity: 5.0 Vital Signs Past 12 Hours Date Time Temp Pulse Resp B/P (MAP) Pulse Ox O2 Delivery O2 Flow Rate FiO2 10/17/16 11:26 37.0 84 16 129/77 (94) 98 Room Air 10/17/16 11:18 87 22 10/17/16 11:18 86 22 98 10/17/16 11:17 36.7 86 20 152/77 97 Room Air 10/17/16 11:16 152/77 10/17/16 11:13 89 22 10/17/16 11:13 88 22 98 10/17/16 11:11 148/80 10/17/16 11:08 88 23 98 10/17/16 11:08 88 23 10/17/16 11:06 151/81 10/17/16 11:03 94 23 10/17/16 11:03 95 23 100 10/17/16 11:01 133/97 10/17/16 10:58 92 22 10/17/16 10:58 93 22 100 10/17/16 10:56 148/112 10/17/16 10:53 87 19 10/17/16 10:53 86 19 100 10/17/16 10:51 156/90 10/17/16 10:48 95 18 100 10/17/16 10:48 95 18 10/17/16 10:46 163/104 10/17/16 10:43 104 22 100 10/17/16 10:43 103 22 10/17/16 10:42 143/81 10/17/16 10:41 36.3 112 12 154/76 100 Mask 6 10/17/16 09:32 77 24 100 10/17/16 09:32 77 26 10/17/16 09:31 120/63 10/17/16 09:26 122/53 10/17/16 09:22 74 10/17/16 09:22 73 22 100 10/17/16 09:21 123/58 10/17/16 09:17 75 23 100 10/17/16 09:17 75 22 100 10/17/16 09:16 119/72 10/17/16 09:11 134/70 10/17/16 09:07 82 27 100 10/17/16 09:07 84 10/17/16 09:06 119/60 10/17/16 09:02 72 20 100 10/17/16 09:02 77 25 100 10/17/16 09:01 119/65 10/17/16 08:56 128/65 10/17/16 08:52 80 10/17/16 08:52 80 29 100 10/17/16 08:51 117/66 10/17/16 08:47 74 22 100 10/17/16 08:47 76 20 100 10/17/16 08:46 119/52 10/17/16 08:41 122/73 10/17/16 08:37 86 26 100 10/17/16 08:37 85 10/17/16 08:36 131/82 10/17/16 08:32 84 25 100 10/17/16 08:32 81 20 100 10/17/16 08:31 125/80 10/17/16 08:26 135/67 10/17/16 08:22 76 16 99 10/17/16 08:22 83 16 100 10/17/16 08:21 129/68 10/17/16 08:17 80 0 97 10/17/16 08:17 81 10/17/16 06:48 36.8 88 16 124/79 (94) 95 Room Air Notes Mental Status: alert / awake / arousable, participated in evaluation Pt Amnestic to Procedure: Yes Nausea / Vomiting: adequately controlled Pain: adequately controlled Airway Patency, RR, SpO2: stable & adequate BP & HR: stable & adequate Hydration State: stable & adequate Anesthetic Complications: no major complications apparent
[2016-10-17 11:53] VITALS: BP 131/79; PULSE 91; O2SAT 98
--- NOTE | 2016-10-17 15:28 | [facility] Post Operative Brief Note ---
Immediate Operative Summary Operative Date Oct 17, 2016. Pre-Operative Diagnosis Right Shoulder AC Joint Arthritis Post-Operative Diagnosis Same Procedure(s) Performed Right Shoulder Arthroscopy, Subacromial Decompression, Distal Clavicle Resection Surgeon Dr. Khan Skoog Patching Machine Operator Surgeon(s) Aleksandar Spear PA-C Estimated Blood Loss 0 mL Findings as above Specimens None Complication(s) None Disposition Recovery Room / PACU
--- NOTE | 2016-10-17 18:11 | OPERATIVE REPORT ---
DATE OF OPERATION: 10/17/2016 PREOPERATIVE DIAGNOSES: Severe external impingement and acromioclavicular joint arthritis of the right shoulder. POSTOPERATIVE DIAGNOSES: Same. PROCEDURES: Right shoulder diagnostic arthroscopy with limited debridement, acromioplasty, and distal clavicle resection. SURGEON: Dr. Eber Khan. HIDE AND SKIN COLERER: Denis Spear PA-C, whose assistance was necessary for positioning the arm and helping with instrumentation. ANESTHESIA: General with a right interscalene nerve block. COMPLICATIONS: None. CONDITION: Stable to PACU. INDICATIONS: Elsa is a pleasant 46-year-old female who presented to my office with chronic right shoulder pain. It has been hurting her for about 20 years. MRI showed severe external impingement and AC joint arthritis. After failing conservative treatment, she elected to undergo arthroscopy. DESCRIPTION OF PROCEDURE: On 10/17/2016, she arrived at [facility] for the above procedure. She was seen in the preoperative holding area and the operative extremity was identified and signed. She and her preoperative antibiotics and a right interscalene nerve block. She was taken back to the operating room, laid on the table in supine position and put under general anesthesia. She was then put into the beachchair position. The right shoulder was prepped and draped in sterile fashion. Time-out was done and the patient and operative extremity was properly identified. A scope was introduced into a posterior portal. Diagnostic arthroscopy showed no cartilage damage to the humeral head or the glenoid. There was no fraying of the labrum. The biceps tendon was intact and went through a normal size biceps jose mechanism. The rotator cuff was intact. The scope was then put into the subacromial space. A lateral portal was made. A shaver was used to do a complete subacromial and subdeltoid bursectomy. An ablator was used to tease the coracoacromial ligament off the undersurface of the acromion and a 5-0 theresa was used to complete an acromioplasty of a Bigliani type 3 acromion. There was fraying on the undersurface of the acromion and there was significant fraying on the bursal side of the rotator cuff. There were no tears of the rotator cuff. The bursal side of the rotator cuff was examined extensively without evidence of tear. Attention was then turned to the distal clavicle. An anterior portal was made. A shaver and ablator was then used to skeletonize the distal clavicle. A 5-0 theresa was then used to resect the distal 5 mm from the clavicle. Complete resection was checked under direct visualization. A shaver was used to remove any excess debris. Repeat diagnostic arthroscopy showed no additional pathology. Arthroscopic instruments were removed from the shoulder. Portal sites were closed with 3-0 nylon. She was then placed in a soft dressing and a regular arm sling. She was then extubated, transferred to a litter and taken to the postanesthesia care unit in stable condition. She tolerated the procedure well. I attest to the content of the Intraoperative Record and any orders documented therein. Any exception s are noted below.
== END | disposition home or self-care (01) ==
LOC: X.SURG 06:20
PROVIDERS: ATTEND Orthopaedic Surgery
DX: M13.811 Other specified arthritis, right shoulder (principal); M25.811 Other specified joint disorders, right shoulder; J45.909 Unspecified asthma, uncomplicated; Z82.49 Family history of ischemic heart disease and other diseases of the circulatory system; Z83.3 Family history of diabetes mellitus; Z82.3 Family history of stroke

== ENCOUNTER 2017-03-29 21:00 | Emergency (ER) | payer OTHER ==
[~2017-03-29] VITALS: Ht 157.5 cm; Wt 68.0 kg
[~2017-03-29 21:00] MED LIST changes: -ALUMSUS2 PO; -ATROPINE SULFATE 0.1 MG/ML 5ML SYR IV PRN; -BUPIVACAINE/EPINEPHRINE 0.25% 10 ML VIAL ONE; -DEXAMETHASONE SOD INJ 4 MG/ML VIAL ONE; -DIPH1TAB PO; -DOXY-300 PO; -EpHEDrine SULFATE INJ 50 MG/ML AMP IV PRN; -EpINEphrine INJ 1MG/ML AMP 1 MG/ML AMP ONE; -FENTANYL CITRATE INJ 50 MCG/1 ML 2 ML VIAL IV PRN; -FENTANYL CITRATE INJ 50 MCG/1 ML 2 ML VIAL ONE; -HYDROmorphone INJ 1 MG/ML SYR IV PRN; -LACTATED RINGER'S 1000ML 1,000 ML IV SCH; -LIDOCAINE 2% 20 MG/ML 5ML SYR ONE; -LIDOCAINE HCL 1% MPF 2 ML VIAL ONE; -MIDAZOLAM HCL 1 MG/ML 2ML VIAL ONE; -ONDANSETRON INJ 2 MG/ML 2 ML VIAL IV PRN; -ONDANSETRON INJ 2 MG/ML 2 ML VIAL ONE; -OXYCODONE/ACETAMINOPHEN 5-325 TAB PO PRN; -PANT40TA PO; -PHENYLEPHRINE HCL INJ 10 MG/ML VIAL ONE; -PROMETHAZINE HCL INJ 12.5 MG in SODIUM CHLORIDE 0.9% 50ML 50 ML IV PRN; -PROPOFOL IV EMULSION 10 MG/ML 20 ML VIAL IV ONE; -ROPIVACAINE 0.5% 5 MG/ML 30 ML VIAL ONE; -SODIUM CHLORIDE 0.9% 1000ML 1,000 ML IV SCH; -VANCOMYCIN 1GM/270ML NSS IV SCH; -VANCOMYCIN HCL 1000MG/20ML VIAL ONE; -WATER, STERILE FOR INJ 10 ML VIAL ONE
[2017-03-29 21:04] VITALS: TEMP 37; Ht 157.5 cm; Wt 68.0 kg
[2017-03-29] MEDS ORDERED: FLUT0.15 NAE (21:34)
[2017-03-29] MEDS ORDERED: IBUP-1451 PO (21:34)
[2017-03-29] MEDS ORDERED: SODIUM CHLORIDE 0.9% 500ML 500 ML IV STA (21:49)
[2017-03-29] MEDS ORDERED: DiphenhydrAMINE HCL 50 MG/ML VIAL IV STA (21:49)
[2017-03-29] MEDS ORDERED: PROCHLORPERAZINE 5 MG/ML 2 ML VIAL IV STA (21:49)
--- NOTE | 2017-03-29 21:53 | EMERGENCY ROOM VISIT NOTE ---
History Report prepared by Trupti: Michelle Castaneda Under the Supervision of: Dr. Angelika Cheatham M.D. First contact with patient: 21:13 Chief Complaint: HEADACHE Stated Complaint: BACK PAIN, NECK PAIN, HEADACHE, UPSET STOMACH History of Present Illness The patient is a 47 year old female who presents to the Emergency Room with complaints of persistent lower back pain that radiates to her neck that began at 0110. The patient states that she is nauseous and has a migraine. Patient states this is a typical migraine for her. She is complaining of lower back pain that radiates up towards her neck. She states her physician has told her in the past that she has a "disc out of place." Patient did try Tylenol prior to arrival without benefit. She denies any recent illness, fever, cough. The patient states that she smokes a 1/2 pack of cigarettes a day. Source of History: patient Onset: 0110 Position: back (lower) Quality: other (back pain) Timing: other (persistent ) Associated Symptoms: + neck pain Review of Systems See above for pertinent positives & negatives. A total of 10 systems reviewed and were otherwise negative. Past Medical & Surgical Medical Problems: (1) Aortic valve insufficiency (2) Asthma (3) Bacteremia (4) Bipolar disorder (5) Bronchitis (6) Hyperlipidemia (7) Migraines (8) Pneumonia Surgical Problems: (1) H/O splenectomy (2) History of dental surgery Family History Cancer Diabetes mellitus FHx: gallbladder disease Heart disease MOTHER Hypertension MOTHER Lung disease Seizures Stroke MOTHER Social History Smoking Status: Never Smoker Alcohol Use: none Drug Use: none Marital Status: Housing Status: lives with significant other Occupation Status: unemployed Current/Historical Medications Scheduled Bupropion Hcl (Wellbutrin Sr), 150 MG PO BID Pantoprazole (Protonix), 40 MG PO QPM Topiramate (Topamax), 50 MG PO BID Scheduled PRN Albuterol Sulfate (Proair Respiclick), 2 PUFFS INH QID PRN for SOB/Wheezing Aluminum/Magnesium/Simeth (Maalox Max Susp), 30 ML PO Q6H PRN for Dyspepsia Baclofen (Lioresal), 10 MG PO TID PRN for Muscle Spasms Diphenhydramine Hcl (Benadryl Allergy), 25 MG PO UD PRN for ALLERGIC REACTION Epinephrine (Epipen 2-Jalen), 0.3 MG IM UD PRN for ALLERGIC REACTION Fluticasone Propionate (Nasal) (Flonase Allergy Relief), 2 SPRAYS CURTIS DAILY PRN for Nasal Congestion Ibuprofen Tab (Motrin), 800 MG PO Q8H PRN for Pain Allergies Coded Allergies: Aspirin (Verified Allergy, Severe, N/V/HIVES, 10/17/16) BEE STING (Verified Allergy, Severe, THROAT SWELLING, 10/17/16) Clindamycin (Verified Allergy, Severe, HIVES, 10/17/16) Penicillins (Verified Allergy, Severe, HIVES, 10/17/16) Physical Exam Vital Signs Date Time Temp Pulse Resp B/P (MAP) Pulse Ox O2 Delivery O2 Flow Rate FiO2 03/29/17 22:49 86 122/68 96 Room Air 03/29/17 21:04 37.0 88 18 144/82 98 Room Air Physical Exam Vital signs reviewed. General: Well-appearing female, in no significant distress. HEENT: No scleral icterus, PERRLA, neck supple. Atraumatic. Cardiovascular: Regular rate and rhythm, no extra sounds. Pulmonary: Clear to auscultation bilaterally, normal work of breathing. Abdomen: Soft, nontender, nondistended, positive bowel sounds. Musculoskeletal: Atraumatic, no peripheral edema. Neurologic: No meningeal signs. Patient awake alert and oriented x 3, full strength in all 4 extremities. Cranial nerves 2 through 12 grossly intact. Skin: Warm, dry, no rash Medical Decision & Procedures Laboratory Results 03/29/17 21:20 Red Blood Count 5.05, Mean Corpuscular Volume 85.7, Mean Corpuscular Hemoglobin 28.3, Mean Corpuscular Hemoglobin Concent 33.0, Mean Platelet Volume 11.0, Neutrophils (%) (Auto) 55.4, Lymphocytes (%) (Auto) 34.3, Monocytes (%) (Auto) 5.0, Eosinophils (%) (Auto) 4.3, Basophils (%) (Auto) 0.7, Neutrophils # (Auto) 9.82, Lymphocytes # (Auto) 6.07, Monocytes # (Auto) 0.89, Eosinophils # (Auto) 0.76, Basophils # (Auto) 0.12 03/29/17 21:20 Test 03/29/17 21:20 White Blood Count 17.71 K/uL (4.8-10.8) Red Blood Count 5.05 M/uL (4.2-5.4) Hemoglobin 14.3 g/dL (12.0-16.0) Hematocrit 43.3 % (37-47) Mean Corpuscular Volume 85.7 fL (80-100) Mean Corpuscular Hemoglobin 28.3 pg (25-34) Mean Corpuscular Hemoglobin Concent 33.0 g/dl (32-36) Platelet Count 599 K/uL (130-400) Mean Platelet Volume 11.0 fL (7.4-10.4) Neutrophils (%) (Auto) 55.4 % Lymphocytes (%) (Auto) 34.3 % Monocytes (%) (Auto) 5.0 % Eosinophils (%) (Auto) 4.3 % Basophils (%) (Auto) 0.7 % Neutrophils # (Auto) 9.82 K/uL (1.4-6.5) Lymphocytes # (Auto) 6.07 K/uL (1.2-3.4) Monocytes # (Auto) 0.89 K/uL (0.11-0.59) Eosinophils # (Auto) 0.76 K/uL (0-0.5) Basophils # (Auto) 0.12 K/uL (0-0.2) RDW Standard Deviation 42.1 fL (36.4-46.3) RDW Coefficient of Variation 13.7 % (11.5-14.5) Immature Granulocyte % (Auto) 0.3 % Immature Granulocyte # (Auto) 0.05 K/uL (0.00-0.02) Anion Gap 12.0 mmol/L (3-11) Est Creatinine Clear Calc Drug Dose 101.4 ml/min Estimated GFR () 124.5 Estimated GFR (Non- 107.4 BUN/Creatinine Ratio 11.5 (10-20) Calcium Level 9.7 mg/dl (8.5-10.1) Laboratory results per my review. Medications Administered Medications (Trade) Dose Ordered Sig/Karlo Route Start Time Stop Time Status Last Admin Dose Admin Prochlorperazine Edisylate (Compazine Inj) 10 mg NOW STAT IV 03/29/17 21:49 03/29/17 21:50 DC 03/29/17 22:02 10 MG Diphenhydramine HCl (Benadryl Inj) 25 mg NOW STAT IV 03/29/17 21:49 03/29/17 21:50 DC 03/29/17 22:01 25 MG Sodium Chloride 500 ml @ 999 mls/hr Q31M STAT IV 03/29/17 21:49 03/29/17 22:19 DC 03/29/17 22:02 999 MLS/HR ED Course 2147: Past medical records reviewed. The patient was evaluated in room C1. A complete history and physical examination was performed. 2148: Ordered Sodium Chloride 500ml @ 999 mls/hr IVm Benadryl Inj 25mg IV, and Compazine Inj 10mg IV. 2258: I reevaluated the patient, who was resting comfortably. She states she is feeling significantly better. 2399: Upon reevaluation, the patient appeared to have improvement of her symptoms. I discussed findings with her. She verbalized agreement of the treatment plan. The patient was discharged home. Medical Decision Differential diagnosis: Intracranial hemorrhage, intracranial mass, migraine headache, tension headache , sinusitis, meningitis This patient was evaluated and appeared to be in no significant distress. Physical examination is fairly unrevealing. Patient has no signs of acute infectious process. IV access was obtained. The patient was hydrated with normal saline solution, given IV Compazine and Benadryl. CBC reveals elevated white blood cell count, but upon review of old records this is chronic. The patient has no fever or signs of meningismus today. She was feeling much improved on my reevaluation. She was discharged in care of her and will follow-up with her PCP for reevaluation. She will return to the ER for worsening of symptoms or any medical concerns. Medication Reconcilliation Current Medication List: was personally reviewed by me Blood Pressure Screening Patient's blood pressure: Normal blood pressure Impression Primary Impression: Migraine headache Scribe Attestation The scribe's documentation has been prepared under my direction and personally reviewed by me in its entirety. I confirm that the note above accurately reflects all work, treatment, procedures, and medical decision making performed by me. Departure Information Dispostion Home / Self-Care Referrals Juan Branham III, M.D. (PCP) Forms HOME CARE DOCUMENTATION FORM, IMPORTANT VISIT INFORMATION Patient Instructions My [facility] Additional Instructions Diagnosis: Migraine headache Continue your medications as prescribed. Please drink plenty of clear fluids. Follow-up with your physician this week for reevaluation. Return to the ER for worsening of symptoms or any medical concerns.
[2017-03-29 21:57] LABS: HEMATOCRIT 43.3 % (37-47); HEMOGLOBIN 14.3 g/dL (12.0-16.0); MEAN CELL VOLUME 85.7 fL (80-100); MEAN CORPUSCULAR HEMOGLOBIN 28.3 pg (25-34); PLATELET COUNT 599 K/uL (130-400); RED CELL DISTRIBUTION WIDTH CV 13.7 % (11.5-14.5); RED CELL DISTRIBUTION WIDTH SD 42.1 fL (36.4-46.3); WHITE BLOOD COUNT 17.71 K/uL (4.8-10.8)
[2017-03-29 22:05] LABS: CALCIUM 9.7 mg/dl (8.5-10.1); CREATININE 0.62 mg/dl (0.60-1.20)
[2017-03-29 22:18] LABS: BASO % 0.7 %; BASO ABS # 0.12 K/uL (0-0.2); EOS % 4.3 %; EOS ABS # 0.76 K/uL (0-0.5); IG# 0.05 K/uL (0.00-0.02); LYMPH % 34.3 %; LYMPH ABS # 6.07 K/uL (1.2-3.4); MONO ABS # 0.89 K/uL (0.11-0.59); NEUT % 55.4 %; NEUT ABS # 9.82 K/uL (1.4-6.5)
[2017-03-29] MEDS ORDERED: DIPH1TAB87 PO (22:19)
[2017-03-29 22:49] VITALS: BP 122/68; PULSE 86; O2SAT 96
[2017-03-29] MEDS ORDERED: ALUMSUS2 PO (23:45)
[2017-03-29] MEDS ORDERED: PANT40TA PO (23:48)
== END 2017-03-29 23:05 | disposition home or self-care (01) ==
LOC: C.EDB 21:01 → C.EDC 23:05
DX: G43.909 Migraine, unspecified, not intractable, without status migrainosus (principal); F17.210 Nicotine dependence, cigarettes, uncomplicated; J45.909 Unspecified asthma, uncomplicated; I35.1 Nonrheumatic aortic (valve) insufficiency; F31.9 Bipolar disorder, unspecified; E78.5 Hyperlipidemia, unspecified; Z83.3 Family history of diabetes mellitus; Z82.49 Family history of ischemic heart disease and other diseases of the circulatory system; Z82.0 Family history of epilepsy and other diseases of the nervous system; Z82.3 Family history of stroke

== ENCOUNTER 2018-07-31 20:08 | Inpatient (IN) ==
--- OUTSIDE RECORDS SUMMARY | 2018-07-31 20:10 | External Medical Summary | Continuity of Care Document ---
:1970 Author Name Toro Trevizo Address Unavailable Unavailable , Care Team Providers Name Role Phone Sandra Rodriges M.D. Unavailable [email or web address] PCP, NO Unavailable Unavailable Problems Active medical history not documented Allergies and Adverse Reactions Allergy history not documented Medications Medications not documented Procedures Procedures not documented Immunizations Immunizations not documented Plan of Treatment Planned Observations Planned Goals not documented Results No Known Results Results not documented
[2018-07-31] MEDS ORDERED: cefTRIAXone SODIUM 2,000 MG in DEXTROSE 5% 50 ML IV STA (21:03)
[2018-07-31] MEDS ORDERED: VANCOMYCIN CONSULT ACTIVE PRN (21:03)
[2018-07-31] MEDS ORDERED: VANCOMYCIN HCL 1,750 MG in SODIUM CHLORIDE 0.9% 500 ML IV ONE (21:03)
[2018-07-31] MEDS ORDERED: SODIUM CHLORIDE 0.9% 500 ML IV STA (21:03)
[2018-07-31 21:14] LABS: Basophils # (auto) 0.08 K/uL (0-0.2); Basophils % (auto) 0.6 %; Eosinophils # (auto) 0.54 K/uL (0-0.5); Eosinophils % (auto) 3.9 %; Hematocrit (blood only) 37.5 % (37-47); Hemoglobin 12.4 g/dL (12.0-16.0); Immature Granulocytes # (auto) 0.04 K/uL (0.00-0.02); Immature Granulocytes % (auto) 0.3 %; Lymphocytes # (auto) 1.45 K/uL (1.2-3.4); Lymphocytes % (auto) 10.4 %; Mean Corpuscular Hgb Conc 33.1 g/dL (32-36); Mean Corpuscular Volume 81.3 fL (80-100); Mean Platelet Volume 10.3 fL (7.4-10.4); Monocytes # (auto) 0.74 K/uL (0.11-0.59); Monocytes % (auto) 5.3 %; Neutrophils # (auto) 11.15 K/uL (1.4-6.5); Neutrophils % (auto) 79.5 %; Platelet Count 485 K/uL (130-400); RDW Coefficient of Variation 15.7 % (11.5-14.5); RDW Standard Deviation 46.7 fL (36.4-46.3); Red Blood Count 4.61 M/uL (4.2-5.4)
[2018-07-31 21:28] LABS: Alanine Aminotransferase 24 U/L (12-78); Albumin Level 3.5 gm/dl (3.4-5.0); Aspartate Aminotransferase 16 U/L (15-37); BUN Creatinine Ratio 7.7 (10-20); Blood Urea Nitrogen 7 mg/dl (7-18); Calcium 9.1 mg/dl (8.5-10.1); Carbon Dioxide 18 mmol/L (21-32); Chloride 112 mmol/L (98-107); Creatinine Clr Calc Pharmacy 77.3 ml/min; Est GFR (African American) 95.3; Est GFR (Non-African American) 82.2; Glucose 89 mg/dl (70-99); Magnesium 1.8 mg/dl (1.8-2.4); Potassium 4.1 mmol/L (3.5-5.1); Sodium 138 mmol/L (136-145)
[2018-07-31] MEDS ORDERED: SODIUM CHLORIDE 0.9% 1000ML 2,000 ML IV ONE (21:28)
[2018-07-31 21:30] LABS: Appearance Urine Clear (Clear); Bilirubin Urine Negative (Negative); Blood Urine Negative (Negative); Color Urine Yellow; Glucose Urine UA Negative (Negative); Ketones Urine Negative (Negative); Leukocyte Esterase Urine Negative (Negative); Nitrite Urine Negative (Negative); Protein Urine Negative (Negative); Specific Gravity Urine 1.007 (1.000-1.030); Urobilinogen Urine Negative (Negative); pH Urine 6.5 (4.5-7.5)
[2018-07-31 21:33] LABS: Albumin Globulin Ratio 0.9 (0.9-2); Alkaline Phosphatase 109 U/L (45-117); Bilirubin,Total 0.3 mg/dl (0.2-1); Globulin 3.8 gm/dl (2.5-4.0); Total Protein 7.3 gm/dl (6.4-8.2); Troponin I < 0.015 ng/ml (0-0.045)
[2018-07-31 21:36] LABS: Partial Thromboplastin Ratio 0.9; Partial Thromboplastin Time 25.4 Seconds (21.0-31.0); Prothrombin Time 10.1 Seconds (9.0-12.0)
--- NOTE | 2018-07-31 22:00 | XRay Report ---
XR chest 1V portable HISTORY: fever COMPARISON: Chest 07/20/2016. FINDINGS: The lungs are clear. Cardiac silhouette is normal in size. No pleural effusions. No pneumot horax. IMPRESSION: No acute process. Electronically signed by: Bridger Carballo M.D. 07/31/2018 9:59 PM
[2018-07-31] MEDS ORDERED: LACTATED RINGER'S 1,000 ML IV ONE (23:24)
--- NOTE | 2018-07-31 23:24 | Emergency Department Note ---
Entered by Nadya Monae acting as a scribe for History of Present Illness General Chief complaint: Flu Like Symptoms Stated complaint: COUGH,FEVER,CHILLS,CHEST/BACK PAIN,NAUSEA Time Seen by Provider: 07/31/18 21:03 Source: patient History of Present Illness Onset (ago): hour(s) (today) Pain Consistency: + other (persistent) Maximum Pain Intensity: 9 Quality: + other (flu-like symptoms) Associated symptoms: + chest pain, + cough (dry), + fever/chills, + nausea/vomiting and + other (positive runny nose; positive ear ache; positive back pain; positive diarrhea) Treatments prior to arrival: other (tylenol ) The patient is a 48 year old female who presents to the Emergency Room with complaints of persistent flu-like symptoms that began today. The patient states that she has had dry cough, fever, chills, runny nose, ear ache, back pain, chest pain, and diarrhea during this time. She states that she had one episode of vomiting, but states that she has been otherwise able to keep fluids down. The patient denies urinary symptoms. The patient states that she took Tylenol earlier today for her symptoms. She states that no one else is sick around her. The patient states that she previously had a splenectomy. The patient states that she is up to date on all immunizations. Home Medications Home Medications Medication Instructions Recorded Confirmed Type albuterol sulfate [Ventolin HFA] 2 puff INHALATION QID PRN 12/05/17 07/31/18 History atorvastatin 40 mg PO DAILY 12/05/17 07/31/18 History diphenhydramine HCl [Benadryl 25 mg PO DIRECTED PRN 12/05/17 07/31/18 History Allergy] epinephrine [EpiPen] 0.3 mg IM Q3H PRN 12/05/17 07/31/18 History fluticasone propionate [Flonase 2 spray INTRANASAL DAILY PRN 12/05/17 07/31/18 History Allergy Relief] pantoprazole [Protonix] 40 mg PO QPM 12/05/17 07/31/18 History topiramate [Topamax] 50 mg PO BID 12/05/17 07/31/18 History celecoxib 200 mg PO DAILY 07/31/18 07/31/18 History gabapentin 300 mg PO TID 07/31/18 07/31/18 History Allergies Allergy/AdvReac Type Severity Reaction Status Date / Time aspirin Allergy Severe N/V/HIVES Verified 07/31/18 20:50 bee venom protein (honey bee) Allergy Severe THROAT Verified 07/31/18 20:50 SWELLING clindamycin Allergy Severe HIVES Verified 07/31/18 20:50 Penicillins Allergy Severe HIVES Verified 07/31/18 20:50 Past Med/Surg History Medical History Chronic low back pain Aortic valve insufficiency (Chronic) Immune deficiency disorder (Acute) Surgical History H/O splenectomy (Resolved 09/02/12) Social History Feels Safe at Home: Yes Smoking Status: Current every day smoker Review of Systems See HPI for pertinent positives & negatives. and A total of 10 systems reviewed and were otherwise negative Physical Exam Vital Signs Vital Signs - 24 hr 07/31/18 20:11 07/31/18 20:47 07/31/18 21:08 Temperature 38.1 C H Temperature Source Oral Sepsis Recent Fever Within 48 Hours Yes Sepsis Action Taken by Nursing No Action Required Pulse Rate 130 H Pulse Rate [Finger] 114 H Pulse Rhythm [Finger] Respiratory Rate 22 20 Respiratory Effort / Characteristics Non-Labored Spontaneous Respiratory Depth Normal Respiratory Pattern Regular Blood Pressure 97/68 L Blood Pressure [Right Arm] 91/67 L Blood Pressure Mean 77 Blood Pressure Mean [Right Arm] 75 Blood Pressure Position Sitting Pulse Oximetry 97 100 98 Oxygen Delivery Method Room Air Room Air Room Air 07/31/18 21:09 07/31/18 21:30 07/31/18 22:12 Temperature 37.8 C H Temperature Source Oral Sepsis Recent Fever Within 48 Hours Sepsis Action Taken by Nursing Pulse Rate Pulse Rate [Finger] 117 H 118 H Pulse Rhythm [Finger] Respiratory Rate 20 20 Respiratory Effort / Characteristics Respiratory Depth Respiratory Pattern Blood Pressure Blood Pressure [Right Arm] 122/55 L 102/60 Blood Pressure Mean Blood Pressure Mean [Right Arm] 77 74 Blood Pressure Position Pulse Oximetry 98 99 100 Oxygen Delivery Method Room Air Room Air Room Air 07/31/18 22:53 07/31/18 22:54 Temperature 37.3 C Temperature Source Oral Sepsis Recent Fever Within 48 Hours Sepsis Action Taken by Nursing Pulse Rate Pulse Rate [Finger] 126 H Pulse Rhythm [Finger] Regular Respiratory Rate 18 Respiratory Effort / Characteristics Non-Labored Spontaneous Respiratory Depth Normal Respiratory Pattern Regular Blood Pressure Blood Pressure [Right Arm] 86/57 L Blood Pressure Mean Blood Pressure Mean [Right Arm] 66 Blood Pressure Position Pulse Oximetry 98 Oxygen Delivery Method Room Air CONSTITUTIONAL/VITAL SIGNS: Reviewed / noted above. GENERAL: Non-toxic in appearance. Frequent cough. INTEGUMENTARY: Warm, dry, and [place]. HEAD: Normocephalic. EYES: without scleral icterus or trauma. ENT/OROPHARYNX: clear and moist. LYMPHADENOPATHY/NECK: Is supple without lymphadenopathy or meningismus. RESPIRATORY: Lungs clear and equal. CARDIOVASCULAR: Regular rate and rhythm. GI/ABDOMEN: Soft and nontender. No organomegaly or pulsatile mass. No rebound or guarding. Normal bowel sounds. EXTREMITIES: Warm and well perfused. BACK: No CVA tenderness. NEUROLOGICAL: Intact without focal deficits. PSYCHIATRIC: normal affect. MUSCULOSKELETAL: Normally developed with good muscle tone. Course 2106: The patient was evaluated in room C5, and a complete history and physical examination were performed. 2314: I discussed the case with Dr. Flynn Hospitalist who accepted the patient for further evaluation. Administered Medications Vancomycin HCl 1,750 mg/ (Sodium Chloride) 535 mls @ 200 mls/hr IV NOW ONE; Protocol Stop: 07/31/18 23:43 Last Admin: 07/31/18 22:02 Dose: 200 mls/hr Documented by: [id number] Sodium Chloride (Nss 1000ml) 2,000 mls @ 999 mls/hr IV .Q2H1M ONE Stop: 07/31/18 23:28 Last Admin: 07/31/18 21:30 Dose: 999 mls/hr Documented by: [id number] Discontinued Medications Ceftriaxone Sodium 2,000 mg/ (Dextrose) 70 mls @ 100 mls/hr IV NOW STA Stop: 07/31/18 21:44 Last Infusion: 07/31/18 22:03 Dose: 0 mls/hr Documented by: [id number] Admin: 07/31/18 21:28 Dose: 100 mls/hr Documented by: [id number] Sodium Chloride (Nss) 500 mls @ 999 mls/hr IV .Q31M STA Stop: 07/31/18 21:33 Last Admin: 07/31/18 21:36 Dose: Not Given Documented by: [id number] Medical Decision Making Differential Diagnosis Differential diagnosis: Etiologies such as viral syndrome, otitis, pharyngitis, pneumonia, influenza, meningitis, urinary tract infection, sepsis, bacteremia, as well as others were entertained. Medical Records Attestation: I reviewed the patient's medical records. Home Medications Current Medication List: was personally reviewed by me Laboratory Data Attestation: I reviewed the patient's lab results. Result diagrams: 07/31/18 20:56 07/31/18 20:56 Lab Results 07/31/18 07/31/18 07/31/18 Range/Units 20:30 20:56 20:56 WBC 14.00 H (4.8-10.8) K/uL RBC 4.61 (4.2-5.4) M/uL Hgb 12.4 (12.0-16.0) g/dL Hct 37.5 (37-47) % MCV 81.3 (80-100) fL MCH 26.9 (25-34) pg MCHC 33.1 (32-36) g/dL RDW Std Deviation 46.7 H (36.4-46.3) fL RDW Coeff of [place] 15.7 H (11.5-14.5) % Plt Count 485 H (130-400) K/uL MPV 10.3 (7.4-10.4) fL Immature Gran % (Auto) 0.3 % Neut % (Auto) 79.5 % Lymph % (Auto) 10.4 % [place] % (Auto) 5.3 % Eos % (Auto) 3.9 % Baso % (Auto) 0.6 % Immature Gran # (Auto) 0.04 H (0.00-0.02) K/uL Neut # (Auto) 11.15 H (1.4-6.5) K/uL Lymph # (Auto) 1.45 (1.2-3.4) K/uL [place] # (Auto) 0.74 H (0.11-0.59) K/uL Eos # (Auto) 0.54 H (0-0.5) K/uL Baso # (Auto) 0.08 (0-0.2) K/uL PT 10.1 (9.0-12.0) Seconds INR 1.0 (0.9-1.1) APTT 25.4 (21.0-31.0) Seconds PTT Ratio 0.9 Sodium (136-145) mmol/L Potassium (3.5-5.1) mmol/L Chloride (98-107) mmol/L Carbon Dioxide (21-32) mmol/L Anion Gap (3-11) BUN (7-18) mg/dl Creatinine (0.6-1.2) mg/dl Est Cr Clr Drug Dosing ml/min Est GFR ( Amer) Est GFR (Non-Af Amer) BUN/Creatinine Ratio (10-20) Glucose (70-99) mg/dl POC Lactic Acid [place] (0.90-1.70) mmol/L Calcium (8.5-10.1) mg/dl Magnesium (1.8-2.4) mg/dl Total Bilirubin (0.2-1) mg/dl AST (15-37) U/L ALT (12-78) U/L Alkaline Phosphatase (45-117) U/L Troponin I (0-0.045) ng/ml Total Protein (6.4-8.2) gm/dl Albumin (3.4-5.0) gm/dl Globulin (2.5-4.0) gm/dl Albumin/Globulin Ratio (0.9-2) Procalcitonin (0-0.5) ng/ml Urine Color Yellow Urine Appearance Clear (Clear) Urine pH 6.5 (4.5-7.5) Ur Specific [place] 1.007 (1.000-1.030) Urine Protein Negative (Negative) Urine Glucose (UA) Negative (Negative) Urine Ketones Negative (Negative) Urine Blood Negative (Negative) Urine Nitrite Negative (Negative) Urine Bilirubin Negative (Negative) Urine Urobilinogen Negative (Negative) Ur Leukocyte Esterase Negative (Negative) 07/31/18 07/31/18 07/31/18 Range/Units 20:56 20:56 21:37 WBC (4.8-10.8) K/uL RBC (4.2-5.4) M/uL Hgb (12.0-16.0) g/dL Hct (37-47) % MCV (80-100) fL MCH (25-34) pg MCHC (32-36) g/dL RDW Std Deviation (36.4-46.3) fL RDW Coeff of Lindsey (11.5-14.5) % Plt Count (130-400) K/uL MPV (7.4-10.4) fL Immature Gran % (Auto) % Neut % (Auto) % Lymph % (Auto) % [place] % (Auto) % Eos % (Auto) % Baso % (Auto) % Immature Gran # (Auto) (0.00-0.02) K/uL Neut # (Auto) (1.4-6.5) K/uL Lymph # (Auto) (1.2-3.4) K/uL [place] # (Auto) (0.11-0.59) K/uL Eos # (Auto) (0-0.5) K/uL Baso # (Auto) (0-0.2) K/uL PT (9.0-12.0) Seconds INR (0.9-1.1) APTT (21.0-31.0) Seconds PTT Ratio Sodium 138 (136-145) mmol/L Potassium 4.1 (3.5-5.1) mmol/L Chloride 112 H (98-107) mmol/L Carbon Dioxide 18 L (21-32) mmol/L Anion Gap 9.0 (3-11) BUN 7 (7-18) mg/dl Creatinine 0.84 (0.6-1.2) mg/dl Est Cr Clr Drug Dosing 77.3 ml/min Est GFR ( Amer) 95.3 Est GFR (Non-Af Amer) 82.2 BUN/Creatinine Ratio 7.7 L (10-20) Glucose 89 (70-99) mg/dl POC Lactic Acid [place] 1.54 (0.90-1.70) mmol/L Calcium 9.1 (8.5-10.1) mg/dl Magnesium 1.8 (1.8-2.4) mg/dl Total Bilirubin 0.3 (0.2-1) mg/dl AST 16 (15-37) U/L ALT 24 (12-78) U/L Alkaline Phosphatase 109 (45-117) U/L Troponin I < 0.015 (0-0.045) ng/ml Total Protein 7.3 (6.4-8.2) gm/dl Albumin 3.5 (3.4-5.0) gm/dl Globulin 3.8 (2.5-4.0) gm/dl Albumin/Globulin Ratio 0.9 (0.9-2) Procalcitonin 0.05 (0-0.5) ng/ml Urine Color Urine Appearance (Clear) Urine pH (4.5-7.5) Ur Specific [place] (1.000-1.030) Urine Protein (Negative) Urine Glucose (UA) (Negative) Urine Ketones (Negative) Urine Blood (Negative) Urine Nitrite (Negative) Urine Bilirubin (Negative) Urine Urobilinogen (Negative) Ur Leukocyte Esterase (Negative) Imaging Data Radiologist's Impression: Radiology results as stated below per my review and the radiologist's interpretation: XR chest 1V portable HISTORY: fever COMPARISON: Chest 07/20/2016. FINDINGS: The lungs are clear. Cardiac silhouette is normal in size. No pleural effusions. No pneumothorax. IMPRESSION: No acute process. Electronically signed by: Bridger Carballo M.D. 07/31/2018 9:59 PM ECG Data Attestation: I personally reviewed and interpreted this ECG as follows: Indication: other (sepsis) Rate (beats per minute): 116 Rhythm: sinus tachycardia Findings: no ST elevation and no ectopy Blood Pressure Blood Pressure Findings: Normal blood pressure MDM Narrative This is a 48-year-old female who presents to the ED with a chief complaint of a fever. The patient reports that she has had her spleen removed in the due to an injury. The patient's reports a cough, subjective fevers and chills, chest pain, back pain, diarrhea and vomiting that started today. Cough is nonproductive. She has had some rhinorrhea and a right ear pain as well. Her exam did not reveal any obvious source for the fever. She does have a frequent nonproductive cough. Her vital signs reveal tachycardia and a fever of 38.1. Her blood pressure was 91/67. White blood cell count was 14. Troponin was negative, urine did not show infection. Chest x-ray was not showing pneumonia. EKG shows a sinus tach at a rate of 116. The patient was given 30 cc/kg of IV fluids, normal saline. She was given IV vancomycin and IV Rocephin. No clear source for her fever was found although bronchitis is the most likely source. She could be bacteremic. Her symptoms suggest a sepsis picture. She will be seen by the hospitalist for further inpatient evaluation and care per Impression & Plan Fever, Bronchitis, Hypotension, Asplenia Discharge Plan Visit Data Chief Complaint: Flu Like Symptoms Stated Complaint: COUGH,FEVER,CHILLS,CHEST/BACK PAIN,NAUSEA ED Provider: Damon Riley Discharge Problem: Fever, Bronchitis, Hypotension, Asplenia Patient Disposition: Being Evaluated by Hospitalist Condition: Fair Forms Stand Alone Forms: My [facility] Prescriptions Prescriptions: No Action atorvastatin 40 mg Tablet 40 mg PO DAILY RF: 0 pantoprazole [Protonix] 40 mg Tablet,Delayed Release (Dr/Ec) 40 mg PO QPM RF: 0 diphenhydramine HCl [Benadryl Allergy] 25 mg Tablet 25 mg PO DIRECTED PRN (Reason: Allergic Symptoms) RF: 0 epinephrine [EpiPen] 0.3 mg/0.3 mL Auto-Injector 0.3 mg IM Q3H PRN (Reason: Allergic Reaction) RF: 0 albuterol sulfate [Ventolin HFA] 90 mcg/actuation Hfa Aerosol Inhaler 2 puff INHALATION QID PRN (Reason: Shortness Of Breath Or Wheezing) RF: 0 fluticasone propionate [Flonase Allergy Relief] 50 mcg/actuation [place],Suspension 2 spray INTRANASAL DAILY PRN (Reason: Congestion) RF: 0 topiramate [Topamax] 50 mg Tablet 50 mg PO BID RF: 0 celecoxib 200 mg capsule 200 mg PO DAILY RF: 0 gabapentin 300 mg capsule 300 mg PO TID RF: 0 Referrals Referrals: Juan Branham MD [Primary Care Provider] - The brynn's documentation has been prepared under my direction and personally reviewed by me in its entirety. I confirm that the note above accurately reflect s all work, treatment, procedures, and medical decision making performed by me.
--- NOTE | 2018-08-01 00:41 | History & Physical Report ---
Date of Service August 01, 2018 Assessment & Plan (1) Sepsis: Secondary to influenza hx splenectomy mood disorder, stable aortic regurgitation as per records asthma, not in acute exacerbation ongoing tobacco abuse Medical telemetry Tamiflu IVF Supportive measures for viral illness Nicotine patch DVT prophylaxis. Lovenox subcu Full code History of Present Illness Chief Complaint: Flulike symptoms Primary Care Provider: Juan Branham MD History obtained from patient, family, and records. Medical history significant for mood disorder, aortic regurgitation as per records, asthma, ongoing tobacco abuse, splenic trauma status post splenectomy, chronic back pain. Yesterday morning, patient woke up with flulike symptoms, clear nasal drainage, dry cough symptoms, no known sick contacts, transient diarrheal illness, no abdominal pain, no dysuria symptoms. Chronic back pain a little worse with coughing symptoms. At the ER, patient received vancomycin and ceftriaxone for sepsis. Medical History as above Surgical History : Splenectomy, dental surgery Family History : Breast cancer, colorectal cancer, lung cancer, heart disease, stroke Personal/Social history : 1/2 pack daily, no EtOH intake, disabled Allergies Allergy/AdvReac Type Severity Reaction Status Date / Time aspirin Allergy Severe N/V/HIVES Verified 07/31/18 20:50 bee venom protein (honey bee) Allergy Severe THROAT Verified 07/31/18 20:50 SWELLING clindamycin Allergy Severe HIVES Verified 07/31/18 20:50 Penicillins Allergy Severe HIVES Verified 07/31/18 20:50 Home Medications Home Medications Medication Instructions Recorded Confirmed Type albuterol sulfate [Ventolin HFA] 2 puff INHALATION QID PRN 12/05/17 07/31/18 History atorvastatin 40 mg PO DAILY 12/05/17 07/31/18 History diphenhydramine HCl [Benadryl 25 mg PO DIRECTED PRN 12/05/17 07/31/18 History Allergy] epinephrine [EpiPen] 0.3 mg IM Q3H PRN 12/05/17 07/31/18 History fluticasone propionate [Flonase 2 spray INTRANASAL DAILY PRN 12/05/17 07/31/18 History Allergy Relief] pantoprazole [Protonix] 40 mg PO QPM 12/05/17 07/31/18 History topiramate [Topamax] 50 mg PO BID 12/05/17 07/31/18 History celecoxib 200 mg PO DAILY 07/31/18 07/31/18 History gabapentin 300 mg PO TID 07/31/18 07/31/18 History Past Med/Surg History Medical History Chronic low back pain Aortic valve insufficiency (Chronic) Immune deficiency disorder (Acute) Surgical History H/O splenectomy (Resolved 09/02/12) Social History Preferred Language: Japanese [employer] Required: No Beliefs That Will Affect Care: None Current Living Situation: Spouse Other Information That Helps Us Care for You: No Feels Safe at Home: Yes Safety Concerns: Feels Safe At This Time Smoking Status: Current every day smoker Tobacco Type: cigarettes Cigarettes Per Day: 1/2 PPD Do You Dip or Chew Tobacco: No Hx Alcohol Use: No Hx Substance Use: No Review of Systems Review of Systems: As per HPI, all 10 systems reviewed, all other ROS negative Physical Exam Physical Exam: GENERAL: Slightly uncomfortable, hyponasal voice, no respiratory distress SKIN: Normal color, warm HEENT: [place] palpebral conjunctivae, no ptosis, dry buccal mucosa NECK : Supple, short neck, no tenderness CHEST : Decreased breath sounds , no tenderness HEART : Tachycardic , diastolic murmur ABDOMEN: Some distention, nontender EXTREMITIES : No LE swelling/tenderness, no other conspicuous deformities noted NEUROLOGIC : Coherent, no facial asymmetry, no other gross focality Results & Data Vital Signs (Past 12 Hours) Vital Signs Temp Pulse Pulse Resp BP BP Pulse Ox 08/01/18 00:00 122 H 18 102/65 100 07/31/18 22:54 37.3 C 07/31/18 22:53 126 H 18 86/57 L 98 07/31/18 22:12 37.8 C H 118 H 20 102/60 100 07/31/18 21:30 117 H 20 122/55 L 99 07/31/18 21:09 98 07/31/18 21:08 98 07/31/18 20:47 114 H 20 91/67 L 100 07/31/18 20:11 38.1 C H 130 H 22 97/68 L 97 Laboratory Results Laboratory Results WBC 14.00 K/uL (4.8-10.8) H 07/31/18 20:56 RBC 4.61 M/uL (4.2-5.4) 07/31/18 20:56 Hgb 12.4 g/dL (12.0-16.0) 07/31/18 20:56 Hct 37.5 % (37-47) 07/31/18 20:56 MCV 81.3 fL (80-100) 07/31/18 20:56 MCH 26.9 pg (25-34) 07/31/18 20:56 MCHC 33.1 g/dL (32-36) 07/31/18 20:56 RDW Std Deviation 46.7 fL (36.4-46.3) H 07/31/18 20:56 RDW Coeff of [place] 15.7 % (11.5-14.5) H 07/31/18 20:56 Plt Count 485 K/uL (130-400) H 07/31/18 20:56 MPV 10.3 fL (7.4-10.4) 07/31/18 20:56 Immature Gran % (Auto) 0.3 % 07/31/18 20:56 Neut % (Auto) 79.5 % 07/31/18 20:56 Lymph % (Auto) 10.4 % 07/31/18 20:56 [place] % (Auto) 5.3 % 07/31/18 20:56 Eos % (Auto) 3.9 % 07/31/18 20:56 Baso % (Auto) 0.6 % 07/31/18 20:56 Immature Gran # (Auto) 0.04 K/uL (0.00-0.02) H 07/31/18 20:56 Neut # (Auto) 11.15 K/uL (1.4-6.5) H 07/31/18 20:56 Lymph # (Auto) 1.45 K/uL (1.2-3.4) 07/31/18 20:56 [place] # (Auto) 0.74 K/uL (0.11-0.59) H 07/31/18 20:56 Eos # (Auto) 0.54 K/uL (0-0.5) H 07/31/18 20:56 Baso # (Auto) 0.08 K/uL (0-0.2) 07/31/18 20:56 PT 10.1 Seconds (9.0-12.0) 07/31/18 20:56 INR 1.0 (0.9-1.1) 07/31/18 20:56 APTT 25.4 Seconds (21.0-31.0) 07/31/18 20:56 PTT Ratio 0.9 07/31/18 20:56 Sodium 138 mmol/L (136-145) 07/31/18 20:56 Potassium 4.1 mmol/L (3.5-5.1) 07/31/18 20:56 Chloride 112 mmol/L (98-107) H 07/31/18 20:56 Carbon Dioxide 18 mmol/L (21-32) L 07/31/18 20:56 9.0 (3-11) 07/31/18 20:56 BUN 7 mg/dl (7-18) 07/31/18 20:56 0.84 mg/dl (0.6-1.2) 07/31/18 20:56 Est Cr Clr Drug Dosing 77.3 ml/min 07/31/18 20:56 Est GFR ( Amer) 95.3 07/31/18 20:56 Est GFR (Non-Af Amer) 82.2 07/31/18 20:56 7.7 (10-20) L 07/31/18 20:56 Glucose 89 mg/dl (70-99) 07/31/18 20:56 POC Lactic Acid [place] 1.54 mmol/L (0.90-1.70) 07/31/18 21:37 Calcium 9.1 mg/dl (8.5-10.1) 07/31/18 20:56 Magnesium 1.8 mg/dl (1.8-2.4) 07/31/18 20:56 0.3 mg/dl (0.2-1) 07/31/18 20:56 AST 16 U/L (15-37) 07/31/18 20:56 ALT 24 U/L (12-78) 07/31/18 20:56 109 U/L (45-117) 07/31/18 20:56 < 0.015 ng/ml (0-0.045) 07/31/18 20:56 7.3 gm/dl (6.4-8.2) 07/31/18 20:56 3.5 gm/dl (3.4-5.0) 07/31/18 20:56 3.8 gm/dl (2.5-4.0) 07/31/18 20:56 0.9 (0.9-2) 07/31/18 20:56 0.05 ng/ml (0-0.5) 07/31/18 20:56 TSH 0.390 uIu/ml (0.300-4.500) 07/31/18 20:56 Yellow 07/31/18 20:30 Clear (Clear) 07/31/18 20:30 6.5 (4.5-7.5) 07/31/18 20:30 Ur Specific [employer] 1.007 (1.000-1.030) 07/31/18 20:30 Negative (Negative) 07/31/18 20:30 Negative (Negative) 07/31/18 20:30 Negative (Negative) 07/31/18 20:30 Negative (Negative) 07/31/18 20:30 Negative (Negative) 07/31/18 20:30 Negative (Negative) 07/31/18 20:30 Negative (Negative) 07/31/18 20:30 Ur Leukocyte Esterase Negative (Negative) 07/31/18 20:30 Influenza A PCR swab positive Diagnostic Findings Chest x-ray did not show any acute process EKG as per my interpretation : Rate 115, sinus tachycardia, T wave flattening inferior leads
[2018-08-01 00:58] LABS: Influenza B virus by PCR Neg for Influ B (Neg)
[2018-08-01] MEDS ORDERED: XOPENEX/ATROVENT 1.25mg/0.5MG NEB COMBO NEB PRN (01:35)
[2018-08-01] MEDS ORDERED: IPRATROPIUM BROMIDE NEB SOLN 0.02% 2.5 ML VIAL INH PRN (01:35)
[2018-08-01] MEDS ORDERED: KETOROLAC TROMETHAMINE 15 MG/ML VIAL IV PRN (01:35)
[2018-08-01] MEDS ORDERED: PROMETHAZINE HCL 12.5 MG in SODIUM CHLORIDE 0.9% 50 ML IV PRN (01:35)
[2018-08-01] MEDS ORDERED: MAGNESIUM SULFATE / D5W 1 GM/100 ML BAG IV ONE (01:35)
[2018-08-01] MEDS ORDERED: XOPENEX/ATROVENT 1.25mg/0.5MG NEB COMBO NEB STA (01:35)
[2018-08-01] MEDS ORDERED: TRAMADOL HCL 50 MG TABLET PO PRN (01:35)
[2018-08-01] MEDS ORDERED: LEVALBUTEROL 1.25MG/0.5ML NEB INH PRN (01:35)
[2018-08-01 01:54] LABS: Pregnancy Test, Urine Negative (Negative)
[2018-08-01] MEDS ORDERED: NSS + 20MEQ KCL 20 MEQ/1,000 ML BAG IV STA (01:59)
[2018-08-01] MEDS ORDERED: IPRATROPIUM BROMIDE NEB SOLN 0.02% 2.5 ML VIAL INH STA (02:04)
[2018-08-01] MEDS ORDERED: LEVALBUTEROL 1.25MG/0.5ML NEB INH STA (02:04)
[2018-08-01] MEDS: ACETAMINOPHEN 325 MG TAB PO PRN ×2 (02:09→23:49)
[2018-08-01] MEDS: OSELTAMIVIR PHOSPHATE 75 MG CAP PO SCH ×3 (02:27→21:54)
[2018-08-01] MEDS: guaiFENesin 600 MG TABCR PO SCH ×3 (02:27→21:57)
[2018-08-01] MEDS: NICOTINE 14 MG/24 HR PATCH TD SCH ×2 (02:28→08:43)
[2018-08-01] MEDS: GABAPENTIN 300 MG CAP PO SCH ×4 (02:28→21:54)
[2018-08-01] MEDS ORDERED: KETOROLAC TROMETHAMINE 15 MG/ML VIAL IV ONE (03:56)
[2018-08-01] MEDS ORDERED: SODIUM CHLORIDE 0.9% 1000ML 1,000 ML IV ONE (03:56)
[2018-08-01] MEDS ORDERED: NSS + 20MEQ KCL 20 MEQ/1,000 ML BAG IV ONE (05:00)
[2018-08-01 06:26] LABS: Basophils # (auto) 0.06 K/uL (0-0.2); Basophils % (auto) 0.4 %; Eosinophils # (auto) 0.12 K/uL (0-0.5); Eosinophils % (auto) 0.8 %; Hemoglobin 11.3 g/dL (12.0-16.0); Immature Granulocytes # (auto) 0.07 K/uL (0.00-0.02); Immature Granulocytes % (auto) 0.5 %; Lymphocytes # (auto) 2.38 K/uL (1.2-3.4); Lymphocytes % (auto) 15.6 %; Mean Corpuscular Hgb Conc 33.2 g/dL (32-36); Mean Corpuscular Volume 80.8 fL (80-100); Mean Platelet Volume 10.5 fL (7.4-10.4); Monocytes # (auto) 0.85 K/uL (0.11-0.59); Monocytes % (auto) 5.6 %; Neutrophils # (auto) 11.81 K/uL (1.4-6.5); Neutrophils % (auto) 77.1 %; Platelet Count 448 K/uL (130-400); RDW Coefficient of Variation 15.7 % (11.5-14.5); Red Blood Count 4.21 M/uL (4.2-5.4); White Blood Count 15.29 K/uL (4.8-10.8)
[2018-08-01 07:01] LABS: BUN Creatinine Ratio 8.1 (10-20); Calcium 7.3 mg/dl (8.5-10.1); Creatinine Clr Calc Pharmacy 100.5 ml/min; Est GFR (African American) 121.7; Potassium 3.7 mmol/L (3.5-5.1)
[2018-08-01] MEDS ORDERED: POTASSIUM CHLORIDE 20 MEQ TABCR PO STA (07:14)
[2018-08-01] MEDS ORDERED: XOPENEX/ATROVENT 1.25mg/0.5MG NEB COMBO NEB SCH (08:00)
[2018-08-01] MEDS: ENOXAPARIN INJ 40 MG/0.4 ML SYR SQ SCH (08:42)
[2018-08-01] MEDS: CeleBREX 200 MG CAP PO SCH (08:42)
[2018-08-01] MEDS: ATORVASTATIN 40 MG TAB PO SCH (08:42)
[2018-08-01] MEDS: TOPIRAMATE 50 MG TAB PO SCH ×2 (08:44→21:54)
[2018-08-01] MEDS ORDERED: COUGH DROP (SUGAR FREE) LOZ 24 LOZ/1 BOX BUCCAL STA (08:46)
[2018-08-01] MEDS: LEVALBUTEROL 1.25MG/0.5ML NEB INH SCH ×3 (08:50→18:54)
[2018-08-01] MEDS: IPRATROPIUM BROMIDE NEB SOLN 0.02% 2.5 ML VIAL INH SCH ×3 (08:51→18:53)
[2018-08-01] MEDS: BENZONATATE 100 MG CAPSULE PO PRN ×2 (10:44→21:55)
[2018-08-01] MEDS ORDERED: Nursing to Pharmacy Communication ONE (11:21)
--- NOTE | 2018-08-01 13:10 | Hospitalist Progress Note ---
Date of Service August 01, 2018 Assessment & Plan (1) Sepsis: CXR:No acute process. Secondary to influenza H/O Traumatic splenectomy Normal lactate levels Continue Tamiflu Gentle IV fluids Continue Supportive Care Mood disorder stable Continue home medication H/O asthma No signs of exacerbation Continue nebs Ongoing tobacco abuse Nicotine patch Counseled to quit smoking DVT Px: Lovenox SQ Code Status Full code Subjective Patient seen and examined at bedside Complains of dry cough Denies any chest pain, shortness of breath, dizziness, nausea, abdominal pain Offers no other complaints Subjective feels much better when compared to yesterday Review of Systems Review of Systems: All systems reviewed & are unremarkable except as noted in HPI & below Physical Exam Physical Exam: Physical Exam: Vitals signs as noted above General Appearance:Moderately built and nourished, no apparent distress Head: normocephalic, Atraumatic Eyes: normal inspection, EOMI Neck: supple, Trachea midline Respiratory/Chest: Normal breath sounds, CTA Cardiovascular: S1, S2, +murmur Abdomen/GI:Soft, Non tender, Bowel sounds present Extremities/Musculoskelatal:normal inspection, no edema Neurologic/Psych:AAOX3, grossly no focal neurological deficits Skin: normal color, warm Results & Data Vital Signs (Past 12 Hours) Vital Signs Temp Pulse Pulse Resp BP BP BP 08/01/18 11:53 36.9 C 100 H 18 107/62 08/01/18 08:51 76 16 08/01/18 07:32 36.6 C 120 H 99 H 18 151/76 H 08/01/18 05:27 103 H 08/01/18 04:17 37 C 114 H 18 88/62 L 08/01/18 03:15 37.6 C H 08/01/18 01:45 38.3 C H 125 H 24 85/59 L 08/01/18 01:35 127 H 08/01/18 01:17 37.3 C 120 H 22 94/62 L Pulse Ox 08/01/18 11:53 98 08/01/18 08:51 99 08/01/18 07:32 96 08/01/18 05:27 08/01/18 04:17 93 08/01/18 03:15 08/01/18 01:45 97 08/01/18 01:35 08/01/18 01:17 100 Laboratory Results Short CBC 07/31/18 08/01/18 Range/Units 20:56 06:04 WBC 14.00 H 15.29 H (4.8-10.8) K/uL Hgb 12.4 11.3 L (12.0-16.0) g/dL Hct 37.5 34.0 L (37-47) % Plt Count 485 H 448 H (130-400) K/uL BMP 07/31/18 08/01/18 20:56 06:04 Sodium 138 141 Potassium 4.1 3.7 Chloride 112 H 118 H Carbon Dioxide 18 L 18 L BUN 7 5 L Creatinine 0.84 0.65 Glucose 89 94 Calcium 9.1 7.3 L D Cardiac Enzymes 07/31/18 Range/Units 20:56 Troponin I < 0.015 (0-0.045) ng/ml Liver Function 07/31/18 Range/Units 20:56 Total Bilirubin 0.3 (0.2-1) mg/dl AST 16 (15-37) U/L ALT 24 (12-78) U/L Alkaline Phosphatase 109 (45-117) U/L Albumin 3.5 (3.4-5.0) gm/dl Urine 07/31/18 Range/Units 20:30 Urine Color Yellow Urine Appearance Clear (Clear) Urine pH 6.5 (4.5-7.5) Ur Specific [place] 1.007 (1.000-1.030) Urine Protein Negative (Negative) Urine Glucose (UA) Negative (Negative) Diagnostic Findings CXR: No acute process.
[2018-08-01] MEDS ORDERED: PANTOprazole 40 MG TAB PO SCH (21:00)
[2018-08-02] MEDS ORDERED: LACTATED RINGER'S 1,000 ML IV ONE (00:09)
[2018-08-02] MEDS: LEVALBUTEROL 1.25MG/0.5ML NEB INH SCH ×3 (01:06→07:18)
[2018-08-02] MEDS: IPRATROPIUM BROMIDE NEB SOLN 0.02% 2.5 ML VIAL INH SCH ×3 (01:06→07:18)
[2018-08-02] MEDS: guaiFENesin SUGAR FREE 100 MG/5 ML UDC PO PRN ×2 (01:15→07:54)
[2018-08-02] MEDS ORDERED: MAGNESIUM SULFATE / D5W 1 GM/100 ML BAG IV ONE (03:30)
[2018-08-02 07:17] LABS: Hemoglobin 10.8 g/dL (12.0-16.0); Mean Corpuscular Hgb Conc 33.8 g/dL (32-36); Mean Corpuscular Volume 80.8 fL (80-100); Mean Platelet Volume 10.4 fL (7.4-10.4); Platelet Count 389 K/uL (130-400); RDW Coefficient of Variation 16.1 % (11.5-14.5); RDW Standard Deviation 47.8 fL (36.4-46.3); Red Blood Count 3.96 M/uL (4.2-5.4); White Blood Count 10.84 K/uL (4.8-10.8)
[2018-08-02] MEDS: ENOXAPARIN INJ 40 MG/0.4 ML SYR SQ SCH (07:53)
[2018-08-02 07:54] LABS: BUN Creatinine Ratio 5.5 (10-20); Creatinine Clr Calc Pharmacy 102.1 ml/min; Est GFR (African American) 122.3; Est GFR (Non-African American) 105.5; Potassium 3.6 mmol/L (3.5-5.1)
[2018-08-02] MEDS: NICOTINE 14 MG/24 HR PATCH TD SCH (07:54)
[2018-08-02] MEDS: guaiFENesin 600 MG TABCR PO SCH (07:54)
[2018-08-02] MEDS: ATORVASTATIN 40 MG TAB PO SCH (07:55)
[2018-08-02] MEDS: CeleBREX 200 MG CAP PO SCH (07:55)
[2018-08-02] MEDS: GABAPENTIN 300 MG CAP PO SCH (07:56)
[2018-08-02] MEDS: TOPIRAMATE 50 MG TAB PO SCH (07:57)
[2018-08-02] MEDS: OSELTAMIVIR PHOSPHATE 75 MG CAP PO SCH (07:57)
--- NOTE | 2018-08-02 10:47 | Hospitalist Progress Note ---
Date of Service August 02, 2018 Assessment & Plan (1) Sepsis: CXR:No acute process. Secondary to influenza H/O Traumatic splenectomy Normal lactate levels Continue Tamiflu Received IV fluids Continue Supportive Care Leukocytosis trended down Mood disorder stable Continue home medication H/O asthma No signs of exacerbation Continue nebs Ongoing tobacco abuse Nicotine patch Counseled to quit smoking DVT Px: Lovenox SQ Code Status Full code Disposition: Plan to discharge home today Subjective Patient seen and examined at bedside Cough has much improved Feels much better today Denies any chest pain, shortness of breath, dizziness, nausea, abdominal pain No new complaints Eager to get discharged Review of Systems Review of Systems: All systems reviewed & are unremarkable except as noted in HPI & below Physical Exam Physical Exam: Physical Exam: Vitals signs as noted above General Appearance:Moderately built and nourished, no apparent distress Head: normocephalic, Atraumatic Eyes: normal inspection, EOMI Neck: supple, Trachea midline Respiratory/Chest: Normal breath sounds, CTA Cardiovascular: S1, S2, +murmur Abdomen/GI:Soft, Non tender, Bowel sounds present Extremities/Musculoskelatal:normal inspection, no edema Neurologic/Psych:AAOX3, grossly no focal neurological deficits Skin: normal color, warm Results & Data Vital Signs (Past 12 Hours) Vital Signs Temp Pulse Pulse Resp BP BP Pulse Ox 08/02/18 08:05 36.8 C 95 H 20 129/78 96 08/02/18 07:20 104 H 18 96 08/02/18 04:21 36.9 C 98 H 20 96/52 L 96 08/02/18 01:29 107 H 18 96 08/02/18 00:32 37.6 C H 08/01/18 23:50 117 H 117/66 83/57 L 08/01/18 23:35 38.7 C H 113 H 20 94/63 L 96 08/01/18 23:14 119 H Laboratory Results Short CBC 08/02/18 Range/Units 06:54 WBC 10.84 H (4.8-10.8) K/uL Hgb 10.8 L (12.0-16.0) g/dL Hct 32.0 L (37-47) % Plt Count 389 (130-400) K/uL BMP 08/02/18 06:54 Sodium 140 Potassium 3.6 Chloride 116 H Carbon Dioxide 19 L BUN 4 L Creatinine 0.64 Glucose 93 Calcium 8.0 L
--- NOTE | 2018-08-02 10:52 | Discharge Summary ---
Date of Service August 02, 2018 Admission HPI Per Admitting Provider History obtained from patient, family, and records. Medical history significant for mood disorder, aortic regurgitation as per records, asthma, ongoing tobacco abuse, splenic trauma status post splenectomy, chronic back pain. Yesterday morning, patient woke up with flulike symptoms, clear nasal drainage, dry cough symptoms, no known sick contacts, transient diarrheal illness, no abdominal pain, no dysuria symptoms. Chronic back pain a little worse with coughing symptoms. At the ER, patient received vancomycin and ceftriaxone for sepsis. Medical History as above Surgical History : Splenectomy, dental surgery Family History : Breast cancer, colorectal cancer, lung cancer, heart disease, stroke Personal/Social history : 1/2 pack daily, no EtOH intake, disabled Admission Exam Per Admitting Provider GENERAL: Slightly uncomfortable, hyponasal voice, no respiratory distress SKIN: Normal color, warm HEENT: [place] palpebral conjunctivae, no ptosis, dry buccal mucosa NECK : Supple, short neck, no tenderness CHEST : Decreased breath sounds , no tenderness HEART : Tachycardic , diastolic murmur ABDOMEN: Some distention, nontender EXTREMITIES : No LE swelling/tenderness, no other conspicuous deformities noted NEUROLOGIC : Coherent, no facial asymmetry, no other gross focality Principal Diagnosis Discharge Information Discharge Diagnosis Influenza A Discharge Goals Decrease discomfort,Improve disease control, Improve function Discharge Activity Limitations Resume your previous activity Discharge Data Allergies Allergy/AdvReac Type Severity Reaction Status Date / Time aspirin Allergy Severe N/V/HIVES Verified 07/31/18 20:50 bee venom protein (honey bee) Allergy Severe THROAT Verified 07/31/18 20:50 SWELLING clindamycin Allergy Severe HIVES Verified 07/31/18 20:50 Penicillins Allergy Severe HIVES Verified 07/31/18 20:50 Consultations 07/31/18 23:18 ED Decision to Admit Stat Procedures Performed CXR: No acute process Hospital Course (1) Sepsis: CXR:No acute process. Secondary to influenza H/O Traumatic splenectomy Normal lactate levels Continue Tamiflu Received IV fluids Continue Supportive Care Leukocytosis trended down Mood disorder stable Continue home medication H/O asthma No signs of exacerbation Continue nebs Ongoing tobacco abuse Nicotine patch Counseled to quit smoking DVT Px: Lovenox SQ Code Status Full code Disposition: Plan to discharge home today Total Time Total Time Spent Total Time Spent (In Minutes): 35 minutes Total Time Includes: Examination of the Patient, Discharge Planning, Medication Reconciliation and Other Discharge Plan Discharge Items Patient Disposition: Home - Self-Care Reason For Visit: SEPSIS Discharge Diagnosis: Influenza A Condition: Fair Discharge Goals: Decrease discomfort, Improve disease control and Improve function Activity: Resume your previous activity Exercise/Sports: Gradually increase as tolerated Non-emergency contact: Primary Care Provider Call non-emergency contact if: you have any medication questions, your symptoms worsen, your pain is not controlled, your pain is worsening, your pain is unusual for you, your pain is concerning for you and you have a fever Follow-up/Referrals: Juan Branham MD [Primary Care Provider] - Diet: Lactose Intolerant Addtl Provider Instructions: Follow up with your PCP in 1 week Complete the Tamiflu course as prescribed Seek immediate medical attention if your symptoms reoccur or worsen Prescriptions: New benzonatate [Tessalon Perles] 100 mg Capsule 100 mg PO TID PRN (Reason: cough) 5 Days Qty: 15 RF: 0 oseltamivir [Tamiflu] 75 mg Capsule 75 mg PO BID Qty: 6 RF: 0 Continued atorvastatin 40 mg Tablet 40 mg PO DAILY RF: 0 pantoprazole [Protonix] 40 mg Tablet,Delayed Release (Dr/Ec) 40 mg PO QPM RF: 0 diphenhydramine HCl [Benadryl Allergy] 25 mg Tablet 25 mg PO DIRECTED PRN (Reason: Allergic Symptoms) RF: 0 epinephrine [EpiPen] 0.3 mg/0.3 mL Auto-Injector 0.3 mg IM Q3H PRN (Reason: Allergic Reaction) RF: 0 albuterol sulfate [Ventolin HFA] 90 mcg/actuation Hfa Aerosol Inhaler 2 puff INHALATION QID PRN (Reason: Shortness Of Breath Or Wheezing) RF: 0 fluticasone propionate [Flonase Allergy Relief] 50 mcg/actuation [place],Suspension 2 spray INTRANASAL DAILY PRN (Reason: Congestion) RF: 0 topiramate [Topamax] 50 mg Tablet 50 mg PO BID RF: 0 celecoxib 200 mg capsule 200 mg PO DAILY RF: 0 gabapentin 300 mg capsule 300 mg PO TID RF: 0 Stand-Alone Forms: [facility]/Other Patient Handouts: Flu Discharge Orders: Discharge Order (Routine); Ordered 08/02/18 Ordered By: Hakan Moore Admission Data Admit Date/Time: 08/01/18 00:43 Attending Provider: Hakan Moore Admit Provider: William Cedillo Primary Care Provider: Juan Branham Other Providers: William Cedillo Service: Telemetry Medical Other Interventions: Discharge Summary Assessment (RN) Last Done: 08/02/18 11:49 Pending Studies at Discharge: No DC Date/Time DO NOT enter until pt leaves facility: 08/02/18 13:52
== END 2018-08-02 13:52 | disposition home or self-care (01) | DRG 872 ==
LOC: ED 20:08 → 2N 08-01 00:43